=== PATIENT | female | born 1955 | race Caucasian/White ===

== ENCOUNTER 2018-01-08 08:30 | Outpatient (RCR) | payer OTHER, SELFPAY ==
--- NOTE | 2017-12-11 10:00 | HP.PTEVAL_ITS ---
Patient's Visit Information SANDRITA CHING is a 62 year old F referred to Physical Therapy by MD MYRON Souza with a diagnosis of LUMBAGO, SCIATICA AND LOSS OF MUSCLE IN POSTERIOR/LATERAL DISTAL RIGHT LEG. Date of Evaluation: 12/11/17 Physical Therapist: Brittany Tjeeda - Subjective Subjective: Work/Leisure: RETIRED. Disability: NO. Present symptoms: LOW BACK, MARIA LUZ HIPS (RIGHT > LEFT), MARIA LUZ ANTERIOR THIGHS, RIGHT LATERAL LEG PAIN. Present since: A COUPLE OF WEEKS. Pain Scale: WORST: 9/10, LEAST: 4 OR 5/ 10. Currently: 8/10. Commenced as a result of: WORKING IN THE YARD WHEN IT WAS NICE OUT. Symptoms at onset: LOW BACK. Worse: BENDING, SITTING, LIFTING. RIGHT LATERAL CALF PAIN IS ONLY PROVOKED WITH WARMING UP ON THE EXERCISE BIKE AT THE GYM AND USING THE ROWING MACHINE. Better: STANDING, WALKING. Disturbed sleep: YES (STOMACH SLEEPER). Previous history/Previous treatment: INFREQUENT EPISODIC LBP TREATED WITH PT. NO MELANIE'S. NO CHIRO. NO SURGERY. Coughing/ sneezing/straining: POSITIVE. Gait: INDEP GAIT WITHOUT AD - NORMAL. Difficulty initiating urinatin: NO. Accidents: NO. Unexplained weight loss: NO. Imaging: LUMBAR X-RAY - WILL BRING NEXT VISIT. PMH: KNEE SURGERY - Objective Sitting Posture: POOR. Standing Posture: FAIR. Lordosis: MILDLY REDUCED. Lateral shift: NO. Relevant shift: N/A. Active Correction of posture: NE. Other Observations: INDEP TRANSFERS SIT TO STAND WITHOUT UE ASSIST. Motor deficit: MARIA LUZ LE'S 5/5 WITH MMT EXCEPT HIPS 4/5. Sensory deficit: MARIA LUZ LE LIGHT TOUCH SENSATION INTACT. ROM deficit: TIGHT MARIA LUZ LE GASTROC SOLEUS COMPLEX 'S. Reflexes: 2/2 MARIA LUZ LE'S. Dural Signs: POSITIVE RIGHT LE. Lumbar mvmt loss: flex - MOD. ext - MOD. R SG - MOD. L SG - MOD. Core strength: POOR. Palpation: TENDERNESS [id number] REGIONS. INCREASED MUSCLE TONE OF PARASPINALS THROUGHOUT - Goals Goal 1:: DECREASE C/O - Rehabilitation Potential Rehabilitation Potential: Good - Anticipated Interventions Thank you for the opportunity to evaluate your patient. For Medicare and Medicare HMO plans, please review the plan of care and approve it. It will need to be FAXED BACK to us at [phone] for Medicare purposes. Please let me know if there are questions or concerns regarding this plan of care. Physician Signature: Date:
--- NOTE | 2017-12-11 10:44 | HP.PTEVAL_ITS ---
Patient's Visit Information SANDRITA CHING is a 62 year old F referred to Physical Therapy by MD MYRON Souza with a diagnosis of LUMBAGO, SCIATICA AND LOSS OF MUSCLE IN POSTERIOR/LATERAL DISTAL RIGHT LEG. Date of Evaluation: 12/11/17 Physical Therapist: Brittany Tejeda - Visit Plan Frequency: 2x /Week Duration: 2 Months Plan: POSTURE CORRECTION/STRENGTHENING, INSTRUCTION IN APPROPRIATE BODY MECHANICS AND ACTIVITY MODIFICATIONS. DLS STARTING WITH A NEUTRAL SPINE PROGRESSING ROM TOLERATED. MARIA LUZ LE ROM, STRETCHING AND STRENGTHENING. HEP INSTRUCTION. - Subjective Subjective: Work/Leisure: RETIRED. Disability: NO. Present symptoms: LOW BACK, MARIA LUZ HIPS (RIGHT > LEFT), MARIA LUZ ANTERIOR THIGHS, RIGHT LATERAL LEG PAIN. Present since: A COUPLE OF WEEKS. Pain Scale: WORST: 9/10, LEAST: 4 OR 5/ 10. Currently: 8/10. Commenced as a result of: WORKING IN THE YARD WHEN IT WAS NICE OUT. Symptoms at onset: LOW BACK. Worse: BENDING, SITTING, LIFTING. RIGHT LATERAL CALF PAIN IS ONLY PROVOKED WITH WARMING UP ON THE EXERCISE BIKE AT THE GYM AND USING THE ROWING MACHINE. Better: STANDING, WALKING. Disturbed sleep: YES (STOMACH SLEEPER). Previous history/Previous treatment: INFREQUENT EPISODIC LBP TREATED WITH PT. NO MELANIE'S. NO CHIRO. NO SURGERY. Coughing/ sneezing/straining: POSITIVE. Gait: INDEP GAIT WITHOUT AD - NORMAL. Difficulty initiating urinatin: NO. Accidents: NO. Unexplained weight loss: NO. Imaging: LUMBAR X-RAY - WILL BRING NEXT VISIT. PMH: KNEE SURGERY - Objective Sitting Posture: POOR. Standing Posture: FAIR. Lordosis: MILDLY REDUCED. Lateral shift: NO. Relevant shift: N/A. Active Correction of posture: NE. Other Observations: INDEP TRANSFERS SIT TO STAND WITHOUT UE ASSIST. Motor deficit: MARIA LUZ LE'S 5/5 WITH MMT EXCEPT HIPS 4/5. Sensory deficit: MARIA LUZ LE LIGHT TOUCH SENSATION INTACT. ROM deficit: TIGHT MARIA LUZ LE GASTROC SOLEUS COMPLEX 'S. Reflexes: 2/2 MARIA LUZ LE'S. Dural Signs: POSITIVE RIGHT LE. Lumbar mvmt loss: flex - MOD. ext - MOD. R SG - MOD. L SG - MOD. Core strength: POOR. Palpation: TENDERNESS L345S1 REGIONS. INCREASED MUSCLE TONE OF PARASPINALS THROUGHOUT - Goals Goal 1:: DECREASE C/O - Rehabilitation Potential Rehabilitation Potential: Good - Anticipated Interventions Patient/Client Instruction: Educate patient on: Condition, Plan of Care, Risk Factors, Benefits of Fitness Program For the Purpose of:: To improve self management Therapeutic Exercise to Include: Strength training, Body mechanics, Postural training, Flexibilty training, Dynamic Lumbar Stabilization For the Purpose of:: To improve ability of physical actions for home/community/ work/leisure Ultrasound (thermal/non thermal): Yes For the Purpose of:: To decrease pain, To decrease swelling/inflammation, To increase ROM Thank you for the opportunity to evaluate your patient. For Medicare and Medicare HMO plans, please review the plan of care and approve it. It will need to be FAXED BACK to us at [phone] for Medicare purposes. Please let me know if there are questions or concerns regarding this plan of care. Physician Signature: Date:
--- NOTE | 2018-01-08 09:26 | HP.PTDCSUM ---
HP - PT D/C Summary It has been my pleasure to treat SANDRITA CHING under orders from Fili Holley MD, for the diagnosis of LUMBAGO, SCIATICA AND LOSS OF MUSCLE IN POSTERIOR/LATERAL DISTAL RIGHT LEG for a total of 10 visit(s). Discharge Date: 01/08/18 Please see the following information for a summary of their discharge status. - Subjective Subjective: PATIENT REPORTS SHE WENT TO [employer] AND WORKED OUT WITHOUT DIFFICULTY BUT HAS SOME QUESTIONS. STATES HER BACK IS GOOD AND SHE IS BEING CAREFUL WITH HER WRISTS, HANDS AND KNEES. - Pain LOW BACK Pain Intensity (Out of 10): 0 - Overall Improvement % Improvement: 100 - Objective Objective/Function: ALL GOALS MET. LUMBAR MVMT LOSS: FLEX - VERY MIN, EXT - MIN, MARIA LUZ SB - MIN. PATIENT DENIES PAIN WITH LUMBAR ROM TESTING. MARIA LUZ LE STRENGTH 5/5. CORE STRENGTH - FAIR. MILD HAMSTRING AND GASTROC SOLEUS TIGHTNESS. DEMONSTRATES LIFTING IN CLINIC TODAY WITH GOOD BODY MECHANICS AND NO C/O PAIN. INDEP WITH HEP AND GYM EX'S. PATIENT DEMONSTRATES AND COMMUNICATES A VERY GOOD UNDERSTANDING OF PROPER POSTURE CONTROL AND BODY MECHANINICS NOW. - Goals Goal 1:: DECREASE C/O LOW BACK AND MARIA LUZ LE SX'S. Goal Progress: Goal Met Goal 2:: IMPROVE BENDING, SITTING, LIFTING, USE OF THE EXERCISE BIKE AT THE GYM AND USE OF THE ROWING MACHINE AT HOME. Goal Progress: Goal Met Goal 3:: INSTRUCT IN PROPHYLAXIS Goal Progress: Goal Met - Plan Plan: D/C. PATIENT IS AGREEABLE. - D/C Information If there are questions or concerns regarding this patient's physical therapy, please feel free to call me at [phone]. Thank you for the referral of this patient. Sincerely, Brittany Tejeda
== END 2018-01-08 19:00 | disposition home or self-care (01) ==
LOC: PT 08:30
PROVIDERS: Family Provider Internal Medicine; PCP Internal Medicine; Visit Provider Psychiatry & Neurology Neurology
DX: M54.40 Lumbago with sciatica, unspecified side (principal)
CPT/HCPCS: 97035; 97110; 97140; 97161; 97530

== ENCOUNTER → 2019-10-15 11:36 | Outpatient (CLI) | payer MEDICARE, SELFPAY ==
[2018-08-10 09:39] VITALS: BMI 25.5
[2019-10-15 14:15] LABS: Hematocrit 43.6 % (37-47); Hemoglobin 13.8 g/dL (12.0-15.0); Mean Corp Hgb Conc 31.7 g/dL (32-36); Mean Corpuscular Hgb 29.4 pg (27.0-32.0); Mean Corpuscular Volume 92.8 fL (81-99); Mean Platelet Vol. 11.7 fl (6.2-12.0); Platelet Count 264 K/mm3 (150-450); RBC Distribution Width CV 13.1 % (11.6-14.6); RBC Distribution Width SD 44.5 fl (35.1-43.9); White Blood Count 5.9 K/mm3 (4.4-11.0)
[2019-10-15 14:36] LABS: Vitamin B12 303 pg/mL (211-911)
[2019-10-15 14:50] LABS: ALB/GLOB Ratio 1.1 RATIO (0.9-2.4); AST(SGOT) 14 U/L (15-37); Alanine Aminotransfer ALT/SGPT 24 U/L (13-56); Albumin, Serum 3.9 g/dL (3.2-5.0); Alkaline Phosphatase 78 U/L (45-117); Anion Gap 2 (5-15); BUN 14 mg/dL (7-18); BUN/Creat Ratio 19.6 RATIO (10-20); Calcium,Total 9.8 mg/dL (8.5-10.1); Chloride 109 mmol/L (98-107); Cholesterol 254 mg/dL (200); Creatinine, Serum 0.72 mg/dL (0.55-1.02); EST Glomerular Filtration Rate 87 mL/min (>60); Est Glom Filt Rate - Afr Amer 105 mL/min (>60); Globulin 3.4 g/dL (2.2-4.2); Glucose 84 mg/dL (74-106); High Density Lipoprotein 84 mg/dL; Potassium 5.2 mmol/L (3.5-5.1); Protein, Total 7.3 g/dL (6.4-8.2); Sodium Level 140 mmol/L (136-145); T4 Free Direct 0.92 ng/dL (0.76-1.46); Thyroid Stim Hormone (TSH) 1.49 uIU/mL (0.358-3.74); Triglycerides 100 mg/dL; Very Low Density Lipoprotein 20 mg/dL (5-40)
== END ==
PROVIDERS: Family Provider Family Medicine; PCP Family Medicine; Referring Provider Family Medicine; Visit Provider Family Medicine
DX: R53.83 Other fatigue (principal); Z13.220 Encounter for screening for lipoid disorders
CPT/HCPCS: 36415; 80053; 80061; 82306; 82607; 84439; 84443; 85027

== ENCOUNTER → 2019-12-16 13:10 | Outpatient (CLI) | payer MEDICARE, BC, SELFPAY ==
--- NOTE | 2019-12-16 13:21 | VDLE_ITS ---
Reason For Study: Lt leg pain RIGHT LEFT CFV is compressible, spontaneous, phasic, GSV is normal. competent and demonstrates normal CFV is compressible, spontaneous, phasic, augmentation. competent, and demonstrates normal Procedure augmentation. Exam performed in department. FV is compressible, spontaneous, phasic, A preliminary report was called and/or faxed competent and demonstrates normal to Kasey. augmentation. POP V is compressible, spontaneous, phasic, competent and demonstrates normal augmentation. T/P Trunk is compressible. PTV is compressible. LT PerV is compressible. Interpretation Summary Deep veins of the left lower extremity are patent and compressible segmentally. There is no evidence of left lower extremity deep vein thrombosis. Valvular competence appears intact within the proximal deep venous system on the left . The left great saphenous vein appears patent and compressible segmentally. Ordering Physician: Ady Parks Referring Physician: Marcin Khan MD Performed By: Gail Negro RVT
== END ==
PROVIDERS: PCP Family Medicine; Referring Provider Family Medicine; Visit Provider Family Medicine
DX: M79.605 Pain in left leg (principal)
CPT/HCPCS: 93971

== ENCOUNTER → 2020-04-06 10:05 | Outpatient (CLI) | payer MEDICARE, BC, SELFPAY ==
--- NOTE | 2020-04-06 10:13 | BD_ITS ---
STUDY: DUAL ENERGY X-RAY ABSORPTIOMETRY / DXA REASON FOR EXAM: Female, 64 years old. 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 COMPARISON: Comparison is made with prior study dated June 22, 2015. FINDINGS: Lumbar Spine (L1-L4): g/cm2 (0.845) / T-score (-2.8) / Z-score (-1.2) Findings are suggestive of osteoporosis with a high fracture risk. Left Femur Total: g/cm2 (0.880) / T-score (-1.0) / Z-score (0.2) Left Femoral Neck: g/cm2 (0.915) / T-score (-0.9) / Z-score (0.6) Right Femur Total: g/cm2 (0.936) / T-score (-0.6) / Z-score (0.7) Right Femoral Neck: g/cm2 (0.905) / T-score (-1.0) / Z-score (0.5) The T-Scores on the most recent prior examination were: Lumbar Spine (L1-L4): There has been worsening of bone density since the previous examination. Left Femur Total: which represents a worsening of 7.5%. Right Femur Total: which represents an improvement of 1.7%. BD/Dexa Bone Density Study IMPRESSION: The patient is considered osteoporotic as outlined below according to World Micheal Organization (WHO) criteria with a high fracture risk. There has been worsening of bone density since the previous examination. Reference Information: The T-score is the number of standard deviations above or below the standard which is normal for young adults at their peak bone mineral density. The World Health Organization (WHO) interprets the T-scores as follows: Above -1 Normal bone density Between -1 and -2.5 Osteopenia Equal to / or below -2.5 Osteoporosis As a practical clinical guideline, osteopenia may be graded as follows: Mild -1 through -1.5 Moderate -1.6 through -2.0 Severe -2.1 through -2.4 The Z-score is the number of standard deviations above or below age-matched controls. A Z-score of less than -1.5 would be considered abnormal. References: 1. NIH Osteoporosis and Related Bone Diseases http://www.osteo.org 2. International Society for Clinical Densitometry http://www.iscd.org 3. National Osteoporosis Foundation http://www.nof.org Electronically Signed: Kip Freed, at 12:50 EDT , Service support ,
== END ==
PROVIDERS: PCP Family Medicine; Referring Provider Family Medicine; Visit Provider Family Medicine
DX: M85.89 Other specified disorders of bone density and structure, multiple sites (principal); Z82.49 Family history of ischemic heart disease and other diseases of the circulatory system
CPT/HCPCS: 77080

== ENCOUNTER → 2020-04-13 10:41 | Outpatient (CLI) | payer MEDICARE, BC, SELFPAY ==
[2018-08-10 09:39] VITALS: BMI 25.5
[2020-04-13 13:54] LABS: Anion Gap 4 (5-15); BUN 19 mg/dL (7-18); BUN/Creat Ratio 26.6 RATIO (10-20); Calcium,Total 9.9 mg/dL (8.5-10.1); Chloride 106 mmol/L (98-107); Creatinine, Serum 0.72 mg/dL (0.55-1.02); EST Glomerular Filtration Rate 87 mL/min (>60); Est Glom Filt Rate - Afr Amer 105 mL/min (>60); Glucose 84 mg/dL (74-106); Magnesium 2.7 mg/dL (1.6-2.6); Potassium 4.8 mmol/L (3.5-5.1); Sodium Level 139 mmol/L (136-145)
[2020-04-13 13:57] LABS: Vitamin B12 647 pg/mL (211-911); Vitamin D,25 Hydroxy 49.5 ng/mL
== END ==
PROVIDERS: PCP Family Medicine; Referring Provider Family Medicine; Visit Provider Family Medicine
DX: M81.0 Age-related osteoporosis without current pathological fracture (principal); E53.8 Deficiency of other specified B group vitamins; E55.9 Vitamin D deficiency, unspecified
CPT/HCPCS: 36415; 80048; 82306; 82607; 83735; 83970; 84100

== ENCOUNTER → 2020-11-23 16:10 | Outpatient (CLI) | payer MEDICARE, BC, SELFPAY ==
[2018-08-10 09:39] VITALS: BMI 25.5
== END ==
PROVIDERS: PCP Family Medicine; Referring Provider Otolaryngology; Visit Provider Otolaryngology
DX: J32.9 Chronic sinusitis, unspecified (principal)
CPT/HCPCS: 87070; 87205

== ENCOUNTER → 2021-03-02 13:23 | Outpatient (CLI) | payer MEDICARE, BC, SELFPAY ==
--- NOTE | 2021-03-02 13:27 | CT_ITS ---
STUDY: CARDIAC CALCIUM SCORING - CT CHEST REASON FOR EXAM: Female, 65 years old. HLD/FAMILY HX RADIATION DOSAGE (If Supplied By Facility): CTDIvol = ( 12.19 ) mGy, DLP = ( 170.66 ) mGycm TECHNIQUE: Axial non-enhanced images were acquired through the heart for the sole purpose of measuring coronary artery calcium. Individualized dose optimization techniques were used for this CT. COMPARISON: None. FINDINGS: There are scattered punctate, less than 2 mm, low risk/benign pulmonary granulomata not requiring further follow-up. Mediastinal contents are normal. CT/Limited Chest CT w/CCTA IMPRESSION: Unremarkable extra cardiac portion of CT chest/heart. Please go to: [email or web address] , for a description of the calculator. Electronically Signed: Stephen Botello MD at 17:54 EDT Tel , Service support ,
[2021-03-02 13:33] VITALS: BP 129/61; PULSE 70; RESP 16; O2SAT 96; BMI 25.5
--- NOTE | 2021-03-05 10:36 | CA.SCORE ---
Calcium Scoring Coronary Calcium Scoring: High-resolution Computed Tomographic imaging of the chest was performed on [03/02/2021], with particular attention paid to the coronary arteries. Images from the examination were analyzed for the presence and extent of coronary artery calcification , using coronary calcium quantification software. The patient tolerated the procedure well and there were no complications. The results of the coronary calcification analysis are provided below. Left main coronary artery 0 Left anterior descending artery 0 Left circumflex artery 0 Right coronary artery 0 Total Agatston score 0. Percentile rankings 0 The above is suggestive of no identifiable atherosclerotic plaquing. All other risk factors should be taken into consideration while interpreting this finding. Calcium Scoring Interpretation: 0 No identifiable atherosclerotic plaque. Very low cardiovascular disease risk. <5% chance of presence coronary artery disease A Negative Examination 1-10 Minimal Plaque burden. Significant coronary artery disease very unlikely. 11-100 Mild plaque burden. Likely mild or minimal coronary atherosclerosis. 101-400 Moderate plaque burden Moderate non-obstructive coronary artery disease highly likely. Over 400 Extensive plaque burden. High likelihood of at least one significant coronary stenosis (>50% diameter)
== END ==
PROVIDERS: PCP Family Medicine; Referring Provider Family Medicine; Visit Provider Family Medicine
DX: E78.5 Hyperlipidemia, unspecified (principal)
CPT/HCPCS: 75571; 76380

== ENCOUNTER → 2021-04-10 15:49 | Outpatient (CLI) | payer MEDICARE, BC, SELFPAY ==
[2021-03-02 13:33] VITALS: BMI 25.5
--- NOTE | 2021-04-10 15:54 | RAD_ITS ---
STUDY: X-RAY - CERVICAL SPINE REASON FOR EXAM: Female, 65 years old. Cervicalgia TECHNIQUE: 8 view(s) of the cervical spine were obtained including oblique views and flexion and extension views.. COMPARISON: None FINDINGS: There are degenerative changes of the anterior atlantoaxial articulation. Normal odontoid process. There is straightening of the normal cervical lordosis. There is multi-level endplate spondylosis. There is multi-level degenerative disc disease with multilevel disc space narrowing. Moderate narrowing of the left C4-C5 neural foraminal The soft tissue structures are unremarkable. RAD/Cerv Spine Obl/Flex/Ext Comp IMPRESSION: Multilevel degenerative changes with narrowing of the left C4-C5 neural foramen Electronically Signed: Kip Freed MD at 13:36 EDT , Service support ,
== END ==
PROVIDERS: PCP Family Medicine; Referring Provider Family Medicine; Visit Provider Family Medicine
DX: M54.2 Cervicalgia (principal)
CPT/HCPCS: 72052

== ENCOUNTER → 2021-04-20 11:23 | Outpatient (CLI) | payer MEDICARE, BC, SELFPAY ==
[2021-03-02 13:33] VITALS: BMI 25.5
[2021-04-23 14:08] LABS: Endomysial Antibody IgA Negative (Negative)
[2021-04-24 09:47] LABS: Immunoglobulin A 221 mg/dL (87-352); t-Transglutaminase IgA <2 U/mL (0-3)
== END ==
PROVIDERS: PCP Family Medicine; Referring Provider Dermatology; Visit Provider Dermatology
DX: L30.9 Dermatitis, unspecified (principal)
CPT/HCPCS: 36415; 82784; 83516; 86255

== ENCOUNTER 2021-04-30 18:03 | Emergency (ER) | payer MEDICARE, BC, SELFPAY ==
[2021-03-02 13:33] VITALS: BMI 25.5
[2021-04-30 18:04] VITALS: BP 155/81; PULSE 75; RESP 16; TEMP 36.4; O2SAT 99; BMI 25.7
--- NOTE | 2021-04-30 18:15 | RAD_ITS ---
STUDY: X-RAY - UNILATERAL RIBS ( LEFT ) WITH CHEST REASON FOR EXAM: Female, 66 years old. FALL TECHNIQUE - RIBS: 4 view(s) of the ribs. TECHNIQUE - CHEST: 1 COMPARISON: None. FINDINGS - RIBS: Normal visualized ribs without a demonstrated fracture. FINDINGS - CHEST: The lungs are clear and expanded. There is no demonstrated pleural abnormality. Normal size heart. Normal mediastinum and courtney. Normal visualized pulmonary arteries. Normal visualized aortic arch and descending thoracic aorta. Normal visualized thoracic spine. Widening of the left acromioclavicular joint most consistent with prior resection of the distal clavicle. There is no demonstrated abnormality of the visualized soft tissue structures of the upper abdomen. RAD/Ribs Uni Min 3V w/PA Chest IMPRESSION: RIBS: Normal x-ray examination of the ribs. CHEST: No acute findings. Electronically Signed: Bridgett Monroe MD at 18:50 EDT Tel , Service support ,
--- NOTE | 2021-04-30 20:11 | ED.VIS.CHEST ---
HPI History of Present Illness Chief Complaint: Chest Other Informant: patient and spouse/S.O. Narrative Narrative: 66-year-old female states she was walking the dog when she sustained a fall. She states her left anterior mid ribs and the left cheek took the brunt of the fall. She notes pain with movement and deep breathing just underneath the left breast anteriorly and midaxillary. She notes some mild swelling to the left cheek. No loss of conscious. No malocclusion no double vision. No dental injury. [facility] Medical History (Updated 04/30/21 @ 20:[address] Junaid Lara DO) Asthma GERD (gastroesophageal reflux disease) Mixed hyperlipidemia Near syncope Home Medications montelukast 10 mg PO DAILY 03/23/14 [History Last Taken Unknown] fluticasone propionate 50 mcg/actuation nasal spray,suspension 50 mcg INTRANASAL BID 09/23/17 [History Last Taken Unknown] albuterol sulfate 90 mcg/actuation aerosol inhaler 1 - 2 puff INHALATION .COMPLEX 12/02/17 [History Last Taken Unknown] ciclesonide 80 mcg/actuation aerosol inhaler 1 inh INHALATION .q other day g 12/02/17 [History Last Taken Unknown] esomeprazole magnesium 20 mg capsule,delayed release See Rx Instructions PO QDAY cap 12/02/17 [History Last Taken Unknown] terbinafine HCl 25 mg PO DAILY 04/30/21 [History Last Taken Unknown] Allergy/AdvReac Type Severity Reaction Status Date / Time ciprofloxacin [From Cipro] Allergy rash Verified 04/30/21 18:06 Penicillins Allergy hives Verified 04/30/21 18:06 Tetracyclines Allergy Rash Verified 04/30/21 18:06 iodine AdvReac Severe Unknown Verified 04/30/21 18:06 copazine Allergy unknown Uncoded 04/30/21 18:06 betadine scrub AdvReac red rash Uncoded 04/30/21 18:06 Family History Mother Diabetes Heart disease atrial fib Brother Diabetes CAD (coronary artery disease) 2 brother with RI w/ stents and CABG Father CAD (coronary artery disease) RI and CABG Aunt CAD (coronary artery disease) CABG Surgical History History of arthroscopy of left knee (~11/2011) History of carpal tunnel surgery of right wrist (~2009) History of shoulder surgery (~2009) right thumb surgery Social History Smoking Status: Never smoker alcohol intake: current alcohol intake frequency: a few times a week caffeine: Yes (3 daily) ROS ROS ED Constitutional Constitutional ED: Denies chills or weight loss Eyes Eyes: Denies change in vision or diplopia ENT ENT ED: Denies ear pain, rhinorrhea or sore throat Cardiovascular Cardiovascular: Reports chest pain; Denies orthopnea, palpitations or racing heartbeat Respiratory/Chest Respiratory/Chest: Denies cough, dyspnea or orthopnea Gastrointestinal Gastrointestinal: Denies abdominal pain, diarrhea, nausea or vomiting Genitourinary Genitourinary ED: Denies dysuria, hematuria or urinary frequency Musculoskeletal Musculoskeletal: Denies arthralgias or myalgias Integumentary Denies abscess or rash Neurologic Neurologic: Denies headache(s) or weakness Psychiatric Psychiatric: Denies anxiety, depression, suicidal ideation or suicidal thoughts Endocrine Endocrinology: Denies polydipsia, polyphagia or polyuria Allergic/Immunologic Allergic/Immunologic ED: Denies mouth swelling, tongue swelling or urticaria EXAM Physical Exam Const Vital Signs: 04/30/21 18:04 04/30/21 19:27 Temperature 97.6 F L Temperature Source Temporal Pulse Rate 75 Respiratory Rate 16 Respiratory Effort Normal Non-Labored Respiratory Depth Normal Respiratory Pattern Normal Blood Pressure 155/81 H Blood Pressure Mean 105 Pulse Ox 99 Oxygen Delivery Method Room Air Room Air Positive well nourished and well developed General Appearance ED: well developed HEENT Reports normocephalic, head/scalp atraumatic and moist mucous membranes HEENT Narrative: Patient has mild swelling and slight erythema to the left cheek. Minimal tenderness to palpation. No obvious deformity. No malocclusion. No periorbital tenderness. Eyes PERRL and EOMs intact bilaterally Neck no lymphadenopathy, supple and no JVD Chest Wall Chest Narrative: Patient has pain with movement of the left mid ribs. No significant pain upon palpation however Resp normal respiratory effort and clear to auscultation bilaterally Cardio regular rate, regular rhythm and no murmurs GI normal to inspection, nondistended, normoactive bowel sounds and non-tender Palpation: soft Back/Spine no CVA tenderness and normal ROM Extremity normal to inspection General Extremety ED: Negative for edema General Extremity: Negative for edema Neuro oriented x3 and CN's II-XII intact bilaterally Sensorium / Orientation: alert Motor Exam: strength 5/5 throughout Psych mental status grossly normal Mood & Affect: Negative for depressed or tearful Skin no rashes or lesions noted and no wounds MDM MDM MDM Narrative Medical decision making narrative: My interpretation of the plain films of the left rib series is no acute fracture. No obvious pneumothorax or hemothorax. Patient requested Tylenol. Would recommend supportive care at home return if worsening or concerns Radiography Diagnostic Testing: Radiology Impression Ribs w/Chest X-Ray 04/30/21 18:15 IMPRESSION: RIBS: Normal x-ray examination of the ribs. CHEST: No acute findings. Electronically Signed: Bridgett Monroe MD at 18:50 EDT Tel , Service support , Discharge Plan Triage Chief Complaint: Chest Other ED Provider: Junaid Lara Dx/Rx/DC Orders Clinical Impression: Chest wall contusion Instructions: ED Chest Wall Contusion Prescriptions: No Action fluticasone propionate [Flonase Allergy Relief] 50 mcg/actuation spray,suspension 50 mcg INTRANASAL BID RF: 0 ciclesonide [Alvesco] 80 mcg/actuation HFA aerosol inhaler 1 inh INHALATION .q other day RF: 0 esomeprazole magnesium [Nexium] 20 mg capsule,delayed release(DR/EC) See Rx Instructions PO QDAY RF: 0 montelukast 10 MG tablet 10 mg PO DAILY RF: 0 albuterol sulfate 1 INHALER inhaler 1 - 2 puff INHALATION .COMPLEX RF: 0 terbinafine HCl 250 mg tablet 25 mg PO DAILY RF: 0 Primary Care Provider: Manuel Khan Referrals: Manuel Khan MD [Primary Care Provider] - 10-14 Days if not better Activity Restrictions/Additional Instructions: Using a throat pillow to help stabilize your left chest will improve your pain with movement. One of the complications of bruised and injured ribs is pneumonia. I would recommend that you take a deep breath at least 2-3 times per hour while awake. Disposition Disposition: Home, Self Care
[2021-04-30] MEDS: Acetaminophen 500 MG Tablet 1000 MG PO (20:13)
== END 2021-04-30 20:31 | disposition home or self-care (01) ==
LOC: ED 20:23
PROVIDERS: Emergency Provider Emergency Medicine; PCP Family Medicine
DX: S20.219A Contusion of unspecified front wall of thorax, initial encounter (principal); W19.XXXA Unspecified fall, initial encounter; Y93.K1 Activity, walking an animal; Y92.9 Unspecified place or not applicable; Y99.9 Unspecified external cause status; J45.909 Unspecified asthma, uncomplicated; K21.9 Gastro-esophageal reflux disease without esophagitis; E78.2 Mixed hyperlipidemia; Z79.899 Other long term (current) drug therapy; Z79.51 Long term (current) use of inhaled steroids
CPT/HCPCS: 71101; 99283

== ENCOUNTER → 2021-05-04 07:23 | Outpatient (CLI) | payer MEDICARE, BC, SELFPAY ==
[2021-04-30 18:04] VITALS: BMI 25.7
[2021-05-04 10:31] LABS: Vitamin D,25 Hydroxy 39.2 ng/mL
[2021-05-04 10:33] LABS: Anion Gap 4 (5-15); BUN 18 mg/dL (7-18); BUN/Creat Ratio 29.3 RATIO (10-20); Calcium,Total 9.5 mg/dL (8.5-10.1); Chloride 106 mmol/L (98-107); Cholesterol 279 mg/dL (200); Creatinine, Serum 0.61 mg/dL (0.55-1.02); EST Glomerular Filtration Rate 103 mL/min (>60); Est Glom Filt Rate - Afr Amer 125 mL/min (>60); Glucose 83 mg/dL (74-106); High Density Lipoprotein 91 mg/dL; Potassium 4.7 mmol/L (3.5-5.1); Sodium Level 138 mmol/L (136-145); Thyroid Stim Hormone (TSH) 4.78 uIU/mL (0.358-3.74); Triglycerides 117 mg/dL; Very Low Density Lipoprotein 23 mg/dL (5-40)
== END ==
PROVIDERS: PCP Family Medicine; Referring Provider Family Medicine; Visit Provider Family Medicine
DX: M81.0 Age-related osteoporosis without current pathological fracture (principal); E78.5 Hyperlipidemia, unspecified
CPT/HCPCS: 36415; 80048; 80061; 82306; 83970; 84443

== ENCOUNTER → 2021-05-05 08:33 | Outpatient (CLI) | payer MEDICARE, BC, SELFPAY ==
[2021-04-30 18:04] VITALS: BMI 25.7
[2021-05-10 03:07] LABS: Almond <0.10 kU/L (Class 0); Banana <0.10 kU/L (Class 0); Barley, Whole Grain <0.10 kU/L (Class 0); Beef <0.10 kU/L (Class 0); Carrot <0.10 kU/L (Class 0); Chicken <0.10 kU/L (Class 0); Egg, Yolk <0.10 kU/L (Class 0); Garlic <0.10 kU/L (Class 0); Lobster <0.10 kU/L (Class 0); Oat <0.10 kU/L (Class 0); Pork 0.32 kU/L (Class I); Potato, White <0.10 kU/L (Class 0); Rice <0.10 kU/L (Class 0); Salmon <0.10 kU/L (Class 0); Strawberry <0.10 kU/L (Class 0); Tomato <0.10 kU/L (Class 0); Tuna <0.10 kU/L (Class 0); Yeast <0.10 kU/L (Class 0)
[2021-05-10 07:36] LABS: Cashew <0.10 kU/L (Class 0); Turkey <0.10 kU/L (Class 0)
== END ==
PROVIDERS: PCP Family Medicine; Referring Provider Otolaryngology; Visit Provider Otolaryngology
DX: T78.40XA Allergy, unspecified, initial encounter (principal)
CPT/HCPCS: 36415; 86003

== ENCOUNTER → 2021-07-13 11:21 | Outpatient (CLI) | payer MEDICARE, BC, SELFPAY ==
[2021-07-13 13:53] LABS: T4 Free Direct 0.92 ng/dL (0.76-1.46); Thyroid Stim Hormone (TSH) 1.38 uIU/mL (0.358-3.74)
== END ==
PROVIDERS: PCP Family Medicine; Referring Provider Family Medicine; Visit Provider Family Medicine
DX: E03.9 Hypothyroidism, unspecified (principal)
CPT/HCPCS: 36415; 84439; 84443

== ENCOUNTER → 2022-01-22 | Outpatient (CLI) | payer MEDICARE, BC, SELFPAY ==
[2022-01-22 09:56] LABS: Hematocrit 47.1 % (37-47); Hemoglobin 15.2 g/dL (12.0-15.0); Mean Corp Hgb Conc 32.3 g/dL (32-36); Mean Corpuscular Hgb 28.8 pg (27.0-32.0); Mean Corpuscular Volume 89.4 fL (81-99); Mean Platelet Vol. 10.7 fl (6.2-12.0); Platelet Count 308 K/mm3 (150-450); RBC Distribution Width CV 13.3 % (11.6-14.6); Red Blood Count 5.27 M/mm3 (4.2-5.4); White Blood Count 5.8 K/mm3 (4.4-11.0)
[2022-01-22 10:07] LABS: PTHIN 37.7 pg/mL (18.4-80.1)
[2022-01-22 10:11] LABS: Vitamin B12 642 pg/mL (211-911); Vitamin D,25 Hydroxy 53.3 ng/mL
[2022-01-22 10:14] LABS: AST(SGOT) 27 U/L (15-37); Alanine Aminotransfer ALT/SGPT 44 U/L (13-56); Alkaline Phosphatase 109 U/L (45-117); Anion Gap 7 (5-15); BUN 18 mg/dL (7-18); BUN/Creat Ratio 25.7 RATIO (10-20); Calcium,Total 9.4 mg/dL (8.5-10.1); Chloride 102 mmol/L (98-107); Cholesterol 325 mg/dL (200); EST Glomerular Filtration Rate 89 mL/min (>60); Est Glom Filt Rate - Afr Amer 107 mL/min (>60); Globulin 4.2 g/dL (2.2-4.2); Glucose 95 mg/dL (74-106); High Density Lipoprotein 93 mg/dL; Potassium 4.2 mmol/L (3.5-5.1); Protein, Total 8.2 g/dL (6.4-8.2); Sodium Level 137 mmol/L (136-145); Triglycerides 117 mg/dL; Very Low Density Lipoprotein 23 mg/dL (5-40)
== END | disposition home or self-care (01) ==
LOC: MTLAB 08:02
PROVIDERS: PCP Family Medicine; Referring Provider Family Medicine; Visit Provider Family Medicine
DX: E53.8 Deficiency of other specified B group vitamins (principal); M81.0 Age-related osteoporosis without current pathological fracture; E03.9 Hypothyroidism, unspecified; E78.2 Mixed hyperlipidemia
CPT/HCPCS: 36415; 80053; 80061; 82306; 82330; 82607; 83970; 84443; 85027

== ENCOUNTER → 2022-03-29 | Outpatient (CLI) | payer MEDICARE, BC, SELFPAY ==
[2022-03-29 10:13] LABS: AST(SGOT) 29 U/L (15-37); Alanine Aminotransfer ALT/SGPT 40 U/L (13-56); Albumin, Serum 3.6 g/dL (3.2-5.0); Alkaline Phosphatase 105 U/L (45-117); Bilirubin, Direct 0.13 mg/dL (0.00-0.30); Cholesterol 256 mg/dL (200); Globulin 3.8 g/dL (2.2-4.2); High Density Lipoprotein 80 mg/dL; Protein, Total 7.4 g/dL (6.4-8.2); Triglycerides 104 mg/dL; Very Low Density Lipoprotein 21 mg/dL (5-40)
[2022-04-01 16:12] LABS: T4 Free Direct 1.04 ng/dL (0.76-1.46); Thyroid Stim Hormone (TSH) 1.18 uIU/mL (0.358-3.74)
== END | disposition home or self-care (01) ==
LOC: MTLAB 07:54
PROVIDERS: PCP Family Medicine; Referring Provider Family Medicine; Visit Provider Family Medicine
DX: E78.5 Hyperlipidemia, unspecified (principal); E03.9 Hypothyroidism, unspecified
CPT/HCPCS: 36415; 80061; 80076; 84439; 84443

== ENCOUNTER → 2022-06-18 | Outpatient (CLI) | payer MEDICARE, BC, SELFPAY ==
[2022-06-18 12:48] LABS: T4 Free Direct 0.98 ng/dL (0.76-1.46); Thyroid Stim Hormone (TSH) 1.91 uIU/mL (0.358-3.74)
== END | disposition home or self-care (01) ==
LOC: MTLAB 10:41
PROVIDERS: PCP Family Medicine; Referring Provider Family Medicine; Visit Provider Family Medicine
DX: E03.9 Hypothyroidism, unspecified (principal)
CPT/HCPCS: 84439; 84443

== ENCOUNTER → 2022-09-17 | Outpatient (CLI) | payer MEDICARE, BC, SELFPAY ==
[2022-09-17 18:30] LABS: T4 Free Direct 1.03 ng/dL (0.76-1.46); Thyroid Stim Hormone (TSH) 1.36 uIU/mL (0.358-3.74)
== END | disposition home or self-care (01) ==
LOC: MFPLAB 13:59
PROVIDERS: PCP Family Medicine; Referring Provider Family Medicine; Visit Provider Family Medicine
DX: Z00.00 Encounter for general adult medical examination without abnormal findings (principal); E03.9 Hypothyroidism, unspecified
CPT/HCPCS: 36415; 84439; 84443

== ENCOUNTER → 2022-10-29 | Outpatient (CLI) | payer MEDICARE, BC, SELFPAY ==
--- NOTE | 2022-10-29 10:25 | BD_ITS ---
STUDY: DUAL ENERGY X-RAY ABSORPTIOMETRY / DXA REASON FOR EXAM: Female, 67 years old. M810 TECHNIQUE: Bone Mineral Density (BMD) measurements of lumbar spine and bilateral hips were obtained. COMPARISON: Comparison is made with prior study dated 04/06/2020. FINDINGS: Lumbar Spine (L1-L4): g/cm2 (0.691) / T-score (-3.2) / Z-score (-1.2) Findings are suggestive of osteoporosis with a high fracture risk. Left Femur Total: g/cm2 (0.767) / T-score (-1.4) / Z-score (0.0) Left Femoral Neck: g/cm2 (0.700) / T-score (-1.3) / Z-score (0.4) Right Femur Total: g/cm2 (0.807) / T-score (-1.1) / Z-score (0.3) Right Femoral Neck: g/cm2 (0.698) / T-score (-1.4) / Z-score (0.3) The T-Scores on the most recent prior examination were: Lumbar Spine (L1-L4): There has been worsening of bone density since the previous examination. Left Femur Total: which represents a worsening of 6.3%. Right Femur Total: which represents a worsening of 7.4%. BD/Dexa Bone Density Study IMPRESSION: The patient is considered osteoporotic as outlined below according to World Micheal Organization (WHO) criteria with a high fracture risk. There has been worsening of bone density since the previous examination. Reference Information: The T-score is the number of standard deviations above or below the standard which is normal for young adults at their peak bone mineral density. The World Health Organization (WHO) interprets the T-scores as follows: Above -1 Normal bone density Between -1 and -2.5 Osteopenia Equal to / or below -2.5 Osteoporosis As a practical clinical guideline, osteopenia may be graded as follows: Mild -1 through -1.5 Moderate -1.6 through -2.0 Severe -2.1 through -2.4 The Z-score is the number of standard deviations above or below age-matched controls. A Z-score of less than -1.5 would be considered abnormal. References: 1. NIH Osteoporosis and Related Bone Diseases www osteo.org 2. International Society for Clinical Densitometry www iscd.org 3. National Osteoporosis Foundation www nof.org Electronically Signed: Kip Freed MD at 8:26 EST ,
== END | disposition home or self-care (01) ==
LOC: OPBD 10:16
PROVIDERS: PCP Family Medicine; Visit Provider Family Medicine
DX: M81.0 Age-related osteoporosis without current pathological fracture (principal)
CPT/HCPCS: 77080

== ENCOUNTER → 2023-01-14 | Outpatient (CLI) | payer MEDICARE, BC, SELFPAY ==
[2023-01-14 15:45] LABS: Vitamin D,25 Hydroxy 55.8 ng/mL
[2023-01-14 15:51] LABS: Anion Gap 5 (5-15); BUN 19 mg/dL (7-18); BUN/Creat Ratio 29.4 RATIO (10-20); Calcium,Total 9.6 mg/dL (8.5-10.1); Chloride 107 mmol/L (98-107); Creatinine, Serum 0.65 mg/dL (0.55-1.02); EST Glomerular Filtration Rate 97 mL/min (>60); Est Glom Filt Rate - Afr Amer 117 mL/min (>60); Glucose 88 mg/dL (74-106); Potassium 4.6 mmol/L (3.5-5.1); Sodium Level 137 mmol/L (136-145); T4 Free Direct 0.97 ng/dL (0.76-1.46); Thyroid Stim Hormone (TSH) 1.23 uIU/mL (0.358-3.74)
[2023-01-15 09:54] LABS: PTHIN 42.9 pg/mL (18.4-80.1)
== END | disposition home or self-care (01) ==
LOC: MFPLAB 12:19
PROVIDERS: PCP Family Medicine; Referring Provider Family Medicine; Visit Provider Family Medicine
DX: M81.0 Age-related osteoporosis without current pathological fracture (principal); E03.9 Hypothyroidism, unspecified
CPT/HCPCS: 36415; 80048; 82306; 82330; 83970; 84439; 84443

== ENCOUNTER → 2024-01-14 | Outpatient (CLI) | payer MEDICARE, BC, SELFPAY ==
[2024-01-14 10:31] LABS: Vitamin B12 403 pg/mL (211-911); Vitamin D,25 Hydroxy 54.2 ng/mL
[2024-01-14 10:36] LABS: Anion Gap 5 (5-15); BUN 23 mg/dL (7-18); BUN/Creat Ratio 37.8 RATIO (10-20); Calcium,Total 9.4 mg/dL (8.5-10.1); Chloride 107 mmol/L (98-107); Cholesterol 261 mg/dL (200); Creatinine, Serum 0.61 mg/dL (0.55-1.02); EST Glomerular Filtration Rate 104 mL/min (>60); Est Glom Filt Rate - Afr Amer 125 mL/min (>60); Glucose 97 mg/dL (74-106); High Density Lipoprotein 79 mg/dL; Potassium 4.3 mmol/L (3.5-5.1); Sodium Level 139 mmol/L (136-145); T4 Free Direct 0.98 ng/dL (0.76-1.46); Thyroid Stim Hormone (TSH) 1.47 uIU/mL (0.358-3.74); Triglycerides 89 mg/dL; Very Low Density Lipoprotein 18 mg/dL (5-40)
[2024-01-14 10:37] LABS: PTHIN 57.5 pg/mL (18.4-80.1)
== END | disposition home or self-care (01) ==
PROVIDERS: PCP Family Medicine; Referring Provider Family Medicine; Visit Provider Family Medicine
DX: M81.0 Age-related osteoporosis without current pathological fracture (principal); E03.9 Hypothyroidism, unspecified; E78.5 Hyperlipidemia, unspecified
CPT/HCPCS: 36415; 80048; 80061; 82306; 82607; 83970; 84439; 84443

== ENCOUNTER → 2024-04-26 | Outpatient (CLI) | payer MEDICARE, BC, SELFPAY ==
--- NOTE | 2024-04-26 10:10 | RAD_ITS ---
INDICATION: sinus pain. Chronic EXAMINATION/TECHNIQUE: X-RAY - XR Sinuses Paranasal Min 3 Views COMPARISON: CT dated July 27, 2009 FINDINGS: There is no significant mucosal thickening. There are no air-fluid levels. The regional bones are grossly intact. RAD/Sinuses min 3 Views IMPRESSION: Negative sinus series. Electronically Signed: Nanette Recinos MD at 10:04 EDT ,
== END | disposition home or self-care (01) ==
LOC: MTRAD 10:09
PROVIDERS: PCP Family Medicine; Referring Provider Family Medicine; Visit Provider Family Medicine
DX: J32.9 Chronic sinusitis, unspecified (principal)
CPT/HCPCS: 70220

== ENCOUNTER → 2024-10-08 | Outpatient (CLI) | payer MEDICARE, BC, SELFPAY | END | disposition home or self-care (01) | PROVIDERS: PCP Family Medicine; Referring Provider Otolaryngology; Visit Provider Otolaryngology | DX: J32.9 Chronic sinusitis, unspecified (principal) | CPT/HCPCS: 87070; 87205 ==

== ENCOUNTER → 2024-12-30 | Outpatient (CLI) | payer MEDICARE, BC, SELFPAY ==
[2024-12-30 19:46] LABS: PTHIN 54 pg/mL (11-61)
[2024-12-30 19:51] LABS: ALB/GLOB Ratio 1.6 RATIO (0.9-2.4); AST(SGOT) 19 U/L (<=31); Alanine Aminotransfer ALT/SGPT 17 U/L (<=34); Albumin, Serum 4.2 g/dL (3.4-4.8); Alkaline Phosphatase 49 U/L (35-104); Anion Gap 12 (5-15); BUN 14 mg/dL (4-19); BUN/Creat Ratio 22.5 RATIO (10-20); Calcium,Total 9.4 mg/dL (7.6-11.0); Carbon Dioxide 21.5 mmol/L (21.0-32.0); Chloride 108 mmol/L (98-108); Creatinine, Serum 0.64 mg/dL (0.70-1.20); EST Glomerular Filtration Rate 95 (>60); Globulin 2.6 g/dL (2.2-4.2); Glucose 75 mg/dL (70-99); Potassium 4.5 mmol/L (3.3-5.1); Protein, Total 6.8 g/dL (5.9-8.4); Sodium Level 142 mmol/L (133-145); Total Bilirubin 0.35 mg/dL (0.00-1.30)
[2024-12-30 20:18] LABS: Cholesterol 270 mg/dL (<=200); High Density Lipoprotein 90 mg/dL; Low Density Lipoprotein Calc. 160 mg/dL; Triglycerides 98 mg/dL; Very Low Density Lipoprotein 20 mg/dL (5-40); Vitamin B12 1037 pg/mL (180-914); Vitamin D,25 Hydroxy 52.6 ng/mL (30-100); cholesterol:hdl ratio screen 2.99
== END | disposition home or self-care (01) ==
LOC: MFPLAB 08:09
PROVIDERS: PCP Family Medicine; Referring Provider Family Medicine; Visit Provider Family Medicine
DX: E78.5 Hyperlipidemia, unspecified (principal); M81.0 Age-related osteoporosis without current pathological fracture; E53.8 Deficiency of other specified B group vitamins
CPT/HCPCS: 36415; 80053; 80061; 82306; 82607; 83970; 84443

== ENCOUNTER → 2024-12-30 | Outpatient (CLI) | payer MEDICARE, BC, SELFPAY ==
--- NOTE | 2024-12-30 06:59 | ECHOD_ITS ---
Reason For Study Reason For Study: SYNCOPE & COLLAPSE Procedure This was a 2D Doppler, Color Flow transthoracic echocardiogram. Exam performed in department. Left Ventricle Normal LV size. Left ventricular systolic function is normal. The left ventricular ejection fraction is 65 %. No regional wall motion abnormalities noted. Right Ventricle Normal RV size. Normal systolic function. Atria Normal left atrium. Normal right atrium. Mitral Valve Normal mitral valve. Tricuspid Valve Normal tricuspid valve. Aortic Valve Trisinus/trileaflet aortic valve. Pulmonic Valve Normal pulmonic valve. Great Vessels Normal aortic root. The pulmonary artery is normal size. Inferior vena cava collapse with respiration. Pericardium/Pleural No pericardial effusion. MMode/2D Measurements & Calculations LVIDd: 3.8 cm IVSd: 0.84 cm Ao root diam: 3.0 cm LVIDs: 2.4 cm LVPWd: 0.84 cm RVDd: 2.8 cm FS: 37.0 % LAV(MOD-bp): 51.6 ml LVAd ap4: 20.9 cm2 LVAd ap2: 18.1 cm2 LAV(MOD-bp) Indexed: 29.6 ml/m2 LVLd ap4: 7.0 cm LVLd ap2: 7.1 cm LAV(MOD-sp2): 46.9 ml EDV(MOD-sp4): 50.7 ml EDV(MOD-sp2): 38.6 ml LAV(MOD-sp4): 43.3 ml EDV(sp4-el): 52.7 ml EDV(sp2-el): 39.2 ml LVAs ap4: 12.3 cm2 LVAs ap2: 9.9 cm2 LVLs ap4: 6.0 cm LVLs ap2: 5.8 cm ESV(MOD-sp4): 21.8 ml ESV(MOD-sp2): 14.3 ml ESV(sp4-el): 21.5 ml ESV(sp2-el): 14.4 ml EF(MOD-sp4): 57.0 % EF(MOD-sp2): 62.9 % EF(sp4-el): 59.2 % SV(MOD-sp4): 28.9 ml SV(MOD-sp2): 24.3 ml SV(sp4-el): 31.2 ml SI(MOD-sp4): 16.6 ml/m2 SI(MOD-sp2): 13.9 ml/m2 LA dimension(2D): 3.1 cm RA A4 area: 10.7 cm2 TAPSE: 2.2 cm Time Measurements MV dec time: 0.21 sec Doppler Measurements & Calculations MV E max andrew: 76.8 cm/sec Lat Peak E' Andrew: 6.5 cm/sec Med Peak E' Andrew: 7.6 cm/sec MV A max andrew: 103.0 cm/sec E/E' lat: 11.7 E/E' med: 10.1 MV E/A: 0.74 MV V2 max: 121.3 cm/sec MV P1/2t max andrew: 102.9 cm/sec Ao V2 max: 88.6 cm/sec MV max P.9 mmHg MV P1/2t: 64.2 msec Ao max P.1 mmHg MV V2 mean: 66.8 cm/sec Ao V2 mean: 63.8 cm/sec MV mean P.1 mmHg MV dec slope: 469.1 cm/sec2 Ao mean P.8 mmHg MV V2 VTI: 33.2 cm MVA(P1/2t): 3.4 cm2 Ao V2 VTI: 21.0 cm AV (velocity ratio): 1.1 LV V1 max: 88.9 cm/sec PA V2 max: 102.3 cm/sec TR max andrew: 215.9 cm/sec LV V1 max P.2 mmHg TR max P.6 mmHg LV V1 mean P.8 mmHg LV V1 mean: 62.8 cm/sec LV V1 VTI: 22.7 cm ECHO/Echo Complete Interpretation Summary Normal LV size. Left ventricular systolic function is normal. The left ventricular ejection fraction is 65 %. Structurally normal valves. Ordering Physician: James Barragan Referring Physician: Marcin Khan Performed By: Lay Knox, LUPE, RVT
== END | disposition home or self-care (01) ==
LOC: CVS 06:54
PROVIDERS: PCP Family Medicine; Referring Provider Internal Medicine Cardiovascular Disease; Visit Provider Internal Medicine Cardiovascular Disease
DX: R55 Syncope and collapse (principal)
CPT/HCPCS: 93306

== ENCOUNTER → 2025-02-22 | Outpatient (CLI) | payer MEDICARE, BC, SELFPAY ==
--- NOTE | 2025-02-22 15:26 | BD_ITS ---
PROCEDURE: DEXA BONE DENSITY STUDY 02/22/2025 REASON FOR EXAM: F, age 69 y/o . Postmenopausal. TECHNIQUE: DXA scan of sites with data reported below. [facility] LINKS: [facility] COMPARISON: Prior study dated October 29, 2022. FINDINGS: BMD and T-SCORES Lumbar spine: 0.765 g/cm2, T-score -2.3 Levels: L1-L4 Change from prior: Improvement of 50%. Left femoral neck: 0.733 g/cm2, T-score -1.0 Femoral neck comparison data not recommended for monitoring change. Left total hip: 0.830 g/cm2, T-score -0.9 Change from prior: Improvement of 8.3%. Right femoral neck: 0.677 g/cm2, T-score -1.5 Femoral neck comparison data not recommended for monitoring change. Right total hip: 0.848 g/cm2, T-score -0.8 Change from prior: Improvement of 5.2%. The World Health Organization has defined the following categories based on bone density: Normal bone density: T-score equal to or greater than -1.0 Osteopenia: T-score between -1.0 and -2.5 Osteoporosis: T-score equal to or less than -2.5 The patient does meet the pharmacological treatment recommendations for prevention of osteoporosis. BD/Dexa Bone Density Study IMPRESSION: OSTEOPENIA. Recommend follow-up as clinically warranted. Reading Location: [place] [id number]
== END | disposition home or self-care (01) ==
LOC: OPBD 15:22
PROVIDERS: PCP Family Medicine; Referring Provider Family Medicine; Visit Provider Family Medicine
DX: M81.0 Age-related osteoporosis without current pathological fracture (principal)
CPT/HCPCS: 77080

== ENCOUNTER → 2025-03-15 | Outpatient (CLI) | payer MEDICARE, BC, SELFPAY ==
--- NOTE | 2025-03-15 07:00 | BI_ITS ---
EXAM: SCRN MAMM (CAD)W/KHAI BILAT DATE: 03/15/2025 CLINICAL HISTORY: F, Age 69 y/o , SCREENING BREAST CANCER RISK ASSESSMENT: Not reported TECHNIQUE: Bilateral screening digital breast tomosynthesis with 2D and 3D images. Computer aided detection. COMPARISON: Prior exam(s) were compared FINDINGS: TISSUE DENSITY: The breast tissue is heterogenously dense, which may obscure small masses. Bilateral Breast Mammographic Findings: No suspicious masses, calcifications or other abnormalities are identified. BI/SCRN MAMM (CAD)W/KHAI BILAT IMPRESSION: OVERALL FINAL ASSESSMENT: BIRADS 1 NEGATIVE RECOMMENDATION: Routine annual follow-up in 1 Year A letter with findings and recommendations will be mailed to the patient. Reading Location: [id number]
--- OUTSIDE RECORDS SUMMARY | 2025-03-15 07:02 | XMS RPT_ITS | CCD ---
Author Organization [facility] Care Team Providers Care Technology Development Intern Name Role Phone Loreta RN, Ariana Wren Unavailable Unavailable Guero Khan MD Primary Care Provider PORTER CARLIN, DR GUILLERMO Ryan JR Primary Care Physician Guero Khan MD Primary Care Provider PORTER CARLIN, DR GUILLERMO Ryan JR Primary Care Isacc SHI MD, DR ANJELICA Wren Attending Unavailab ambika BUENROSTRO MD, DR GUILLERMO Ryan JR Primary Care Isacc SHI MD, DR ANJELICA Wren Attending Valenteab MARCIE Gillespie Attending Unavailable PORTER CARLIN, DR GUILLERMO Ryan JR Primary Care Isacc SHI MD, DR ANJELICA Wren Admitting Unavailab Michele CARLIN, DR ANJELICA Wren Referring UnavailMARCIE Johnson Consulting Unavailable Guero Khan MD Primary Care Provider Guero Khan MD Primary Care Provider GUERO KHAN Primary Care UnavailGUERO Melvin Primary Care UnavailMILTON Myles Referring Unavailable MILTON LUJAN Referring Unavailable GUERO KHAN Primary Care UnavailMILTON Myles Attending Unavailable GUERO KHAN Primary Care Unavailenzo Khan MD, Dr. Burch Primary Care Provider Alfreda CARLIN, Dr. Burch Attending Provider Alfreda CARLIN, Dr. Burch Referring Provider Bill CARLIN, Dr. Burch Referring Provider [phone] Yung CARLIN, Dr. Ramirez Attending Provider Yung CARLIN, Dr. Ramirez Referring Provider Robby CARLIN, Dr. García Attending Provider Bill CARLIN, Dr. Burch Attending Provider Bill CARLIN, Dr. Burch Primary Care Provider Marcie Barragan Attending Unavailable Marcie Barragan Referring Unavailable Bill, Guero Primary Care Unavailable Bill, Guero Primary Care Unavailable Guero Gant Attending Unavailabl e Alfreda, Christdisha Referring Unavailabl e Ricky Bustamante Attending Unavailable [facility] Marcie Barragan Attending Unavailable Bill, Guero Referring Unavailable [facility], [facility] Unavailable Guero Khan Attending Unavailable Bill, Guero Referring Unavailable [facility] Unavailable Guero Khan Attending Unavailable Bill, Guero Referring Unavailable [facility] Unavailable Guero Khan Attending Unavailable Bill, Guero Referring Unavailable [facility] Unavailable Milton Lujan Attending Unavailable Milton Lujan Referring Unavailable [facility] Unavailable Allergies Allergy Classification Reported Allergen(s) Allergy Type Date of Onset Reaction(s) Facility Iodine (and Iodine containting drugs) (1 source) Iodine Drug Allergy 09-06-20 16 Rash [facility] Macrolides (antibiotic) (1 source) Erythromycin Drug Allergy 10-17-19 09 Vomiting [facility] Penicillins (antibiotic) (1 source) Penicillins Drug Allergy 11-27-19 06 Unknown [facility] Prochlorperazine (1 source) Prochlorperazine Drug Allergy 10-17-19 09 Intolerance [facility] Quinolones (antibiotic) (1 source) Ciprofloxacin Drug Allergy 07-31-20 12 Rash [facility] (3 sources) ciprofloxacin; Translations: [Ciprofloxacin] Drug Allergy 01-08-20 13 RASH [facility] Work Phone: (20 sources) iodine; Translations: [iodine topical] Drug Allergy 01-08-20 13 Rash [facility] Work Phone: (3 sources) penicillin; Translations: [penicillin] Drug Allergy 01-08-[address] [facility] Work Phone: (1 source) tetracycline Drug Allergy 01-08-20 13 [facility] Work Phone: (18 sources) Ciprofloxacin; Translations: [CIPROFLOXACIN] Drug Allergy 07-31-20 12 Rash [facility] (19 sources) Penicillins; Translations: [PENICILLINS] Allergy to substance 11-27-19 06 Unknown [facility] (10 sources) Tetracyclines; Translations: [Tetracyclines] Allergy to substance 04-30-20 21 Rash [facility] (2 sources) copazine Allergy to substance 04-30-20 21 unknown [facility] Work Phone: (2 sources) betadine scrub Propensity to adverse reactions 04-30-20 21 red rash [facility] Work Phone: (9 sources) Erythromycin; Translations: [ERYTHROMYCIN] Drug Allergy 10-17-19 09 Vomiting [facility] (17 sources) Prochlorperazine; Translations: [prochlorperazine] Drug Allergy 10-17-19 09 Intolerance [facility] (7 sources) Povidone-Iodine Drug Allergy 05-27-20 22 Rash [facility] (1 source) cantaloupe allergenic extract Drug Allergy itcy mouth [facility] (1 source) Hard cheese Food allergy itcy mouth [facility] (1 source) Walnuts Food allergy itchy mouth [facility] (3 sources) Alendronate Drug Allergy 12-08-19 25 Other [facility] (3 sources) atorvastatin Drug Allergy 12-08-19 25 Diarrhea [facility] (3 sources) ezetimibe Drug Allergy 12-08-19 25 [facility] Comment on above: myalgias (3 sources) Cskxjdm-Sal-Fmu Reductase Inhibitor Allergy to substance 12-08-19 25 Other [facility] Comment on above: myalgias (1 source) Alendronate Drug Allergy 12-08-19 25 [facility] Repository (1 source) atorvastatin Drug Allergy 12-08-19 25 [facility] Rep[facility] (1 source) Ciprofloxacin Drug Allergy 12-08-19 [facility] Repository (1 source) ezetimibe Drug Allergy 12-08-19 [facility] Repository (1 source) Povidone-Iodine Drug Allergy 12-08-19 [facility] (1 source) Prochlorperazine Drug Allergy 12-08-19 [facility] Rep[facility] (1 source) Gcdyakd-Kig-Cew Reductase Inhibitor Drug allergy (disorder) 12-08-19 [facility] Repository Medications Current Medications Medication Drug Class(es) Dates Sig (Normalized) Sig (Original) 1.14 ML dupilumab 175 MG/ML Auto-Injector [Dupixent] (2 sources) Start: 07-04-2023 inject 1 dose by subcutaneous injection every other week Dupixent Pre-filled Pen 200 mg/1.14 mL subcutaneous solution Dose : 200 mg =, Subcutaneous, q2wk, rotate injection sites, # 2.28 mL, 0 Refill(s) Start Date: 07/04/23 Status: Ordered acetaminophen 1000 mg oral tablet (1 source) Start: 07-30-2023 take 1 tablet by mouth once daily Tylenol Dose : 1,000 mg = 2 tab(s), Oral, TID, not to exceed 3000 mg/day, 0 Refill(s) Start Date: 07/30/23 Status: Ordered Beclomethasone (9 sources) Corticosteroid beclomethasone dipropionate (QVAR INHALATION) Inhale as instructed every other day. Active beclomethasone d ipropionate (QVAR INHALATION) Inhale as instructed every other day. 0 Active Comment on above: Inhale as instructed every other day. calcium carbonate 1500 mg oral tablet (5 sources) Start: 11-10-2024 take 1 tablet by mouth twice daily Calcium Carbonate 600 mg calcium (1,500 mg) tablet Active 600 mg PO TWICE A DAY November 10, 2024 1:00am Start: 07-04-2023 calcium (as ca rbonate) 600 mg oral tablet Dose : 600 mg = 1 tab(s), Oral, qDay, 0 Refill(s) Start Date: 07/04/23 Status: Ordered Centrum Silver oral tablet (2 sources) Start: 07-04-2023 take 1 tablet by mouth once daily Centrum Silver oral tablet Dose = 1 tab(s), Oral, qDay, # 30 tab(s), 0 Refill(s) Start Date: 07/04/23 Status: Ordered cephalexin 500 mg oral capsule (1 source) Cephalosporin Antibacterial Start: 06-20-2024 End: 06-25-2024 take 1 capsule by mouth four times daily cephALEXin (KEFLEX) 500 mg capsule Indications: Skin infection Take 1 capsule by mouth four times daily for 5 days. 20 capsule 06/20/2024 06/25/2024 Active cholecalciferol 0.05 mg oral capsule (3 sources) Vitamin D Start: 11-10-2024 take 1 capsule by mouth once daily Cholecalciferol (Vitamin D3) 50 mcg (2,000 unit) capsule Active 50 ug PO daily November 10, 2024 1:00am cyanocobalamin, vitamin B-12, (B-12 DOTS ORAL) (9 sources) cyanocobalamin, vitamin B-12, (B-12 DOTS ORAL) Take by mouth. Active cyanocobalamin, vitamin B-12, (B-12 DOTS ORAL) Take by mouth. 0 Active Comment on above: Take by mouth. 1 ml denosumab 60 mg/ml prefilled syringe (6 sources) RANK Ligand Inhibitor Start: 11-10-2024 Denosumab (Prolia) 60 mg/mL syringe Active 60 mg SC every 6 months November 10, 2024 1:00am Start: 07-04-2023 Prolia 60 mg/m L subcutaneous solution Dose : 60 mg = 1 mL, Subcutaneous, q6mo, # 1 mL, 0 Refill(s) Start Date: 07/04/23 Status: Ordered desloratadine 5 mg oral tablet (9 sources) Histamine-1 Receptor Antagonist Start: 02-19-2021 desloratadine (CLARINEX) 5 mg tablet 02/19/2021 Active docosahexaenoic acid 144 mg / eicosapentaenoic acid 216 mg / vitamin e 2 unt oral capsule (3 sources) Start: 11-10-2024 Palmer-3 Fatty Acids-Fish Oil (Fish Oil) 360-1,200 mg capsule Active 1 NMA PO daily November 10, 2024 1:00am docusate sodium 50 mg / sennosides, prison 8.6 mg oral tablet (1 source) Start: 07-30-2023 End: 08-02-2023 take 1 tablet by mouth twice daily Senokot S 50 mg-8.6 mg oral tablet Dose = 2 tab(s), Oral, BID, Take until first bowel movement, then as needed, X 3 day(s), # 12 tab(s), 0 Refill(s), Pharmacy: [facility]/pharmacy #[id number], 162.6, cm, 07/29/23 15:54:00 EDT, Height, kg, 07/29/23 15:54:00 EDT, Dosing Weight Start Date: 07/30/23 Stop Date: 08/02/23 Status: Ordered 2 ml dupilumab 150 mg/ml auto-injector (12 sources) Interleukin-4 Receptor alpha Antagonist Start: 11-10-2024 Dupilumab (Dupixent Pen) 300 mg/2 mL pen injector Active 300 mg SC every 2 weeks November 10, 2024 1:00am dupilumab (DUPIX ENT PEN) 300 mg/2 mL pen Inject subcutaneously every 2 weeks. Active Comment on above: Inject subcutaneousl y every 2 weeks. esomeprazole 20 mg delayed release oral capsule (20 sources) Proton Pump Inhibitor Start: 11-10-19 take 1 capsule by mouth once daily Esomeprazole Magnesium (Nexium) 20 mg capsule,delayed release(DR/EC) Active 20 mg PO daily November 10, 2024 9:38am Start: 12-02-2017 End: 11-10-2024 take 1 capsule by mouth every other day as needed Esomeprazole Magnesium (Nexium) 20 mg capsule,delayed release(DR/EC) Discontinued 0 PO daily December 02, 2017 3:18pm November 10, 2024 9:42am 20 mg every other day PO QDAY PRN Start: 09-23-2017 End: 12-02-2017 take 1 capsule by mouth once daily Esomeprazole Magnesium (Nexium) 20 mg capsule,delayed release(DR/EC) Discontinued 20 mg PO daily September 23, 2017 1:00am December 02, 2017 3:19pm Start: 03-23-2014 End: 09-23-2017 take 1 capsule by mouth once daily Esomeprazole Magnesium 40 MG capsule Discontinued 40 mg PO DAILY March 23, 2014 12:00am September 23, 2017 12:50pm Start: 01-07-2013 NEXIUM PACK As Directed ESOMEPRAZOLE MAGNESIUM PACK [id number] Xiomara Garcia Comment on above: Take 20 mg by mouth DAILY (6 AM). 1 ml evolocumab 140 mg/ml auto-injector (3 sources) PCSK9 Inhibitor Start: 11-10-2024 Evolocumab (Repatha Sureclick) 140 mg/mL pen injector Active 140 mg SC every 2 weeks November 10, 2024 1:00am Fish Oils (1 source) Start: 07-04-2023 Fish Oil 1000 mg oral capsule Dose : 1,000 mg = 1 cap(s), Oral, qDay, # 90 cap(s), 0 Refill(s) Start Date: 07/04/23 Status: Ordered Fluticasone Propionate (20 sources) Corticosteroid Start: 11-10-2024 Fluticasone Propionate 100 mcg/actuation blister with device Active 1 NMA INHALATION DAILY November 10, 2024 1:00am Start: 09-23-2017 Fluticasone Pr opionate (Flonase Allergy Relief) 50 mcg/actuation spray,suspension Active 50 ug INTRANASAL TWICE A DAY September 23, 2017 1:00am Start: 01-07-2013 FLONASE SUSP A s Directed FLUTICASONE PROPIONATE SUSP [id number] Xiomara Gacria fluticasone prop ionate (FLONASE NASAL) Use in the nose. Active fluticasone prop ionate (FLONASE NASAL) Use in the nose. 0 Active Comment on above: Use in the nose. ammonium lactate 120 mg/ml topical lotion (9 sources) Start: 03-12-2006 AMMONIUM LACTATE 12 % LOTION bid at affected areas 225 gm or otc 3 03/12/2006 Active Comment on above: bid at affected area s levothyroxine sodium 0.075 mg oral capsule (14 sources) l-Thyroxine Start: 11-10-2024 Levothyroxine 75 mcg capsule Active 37.5 ug PO daily November 10, 2024 1:00am Start: 07-04-2023 levothyroxine 37.5 mcg (0.0375 mg) oral capsule Dose : 37.5 International_Unit = 1 cap(s), Oral, qDay, on an empty stomach, # 30 EA, 0 Refill(s) Start Date: 07/04/23 Status: Ordered levothyroxine (S YNTHROID) 75 mcg tablet Take 37 mcg by mouth daily before breakfast. Active take 1 capsule by mo ut once daily before breakfast levothyroxine 25 mcg cap Take 25 mcg by mouth daily before breakfast. 0 Active Comment on above: Take 25 mcg by mouth daily before breakfast. magnesium citrate 100 mg oral tablet (2 sources) Start: 3 magnesium citrate 100 mg oral capsule Dose : 100 mg = 1 cap(s), Oral, qDay, # 120 cap(s), 0 Refill(s) Start Date: 07/04/23 Status: Ordered montelukast 10 mg oral tablet (20 sources) Leukotriene Receptor Antagonist Start: 3 take 1 tablet by mouth once daily SINGULAIR TABS One tablet by mouth daily MONTELUKAST SODIUM TABS [id number] Xiomara Garcia Start: 01-07-2013 SINGULAIR TABS As Directed MONTELUKAST SODIUM TABS [id number] Xiomara Garcia Start: 11-27-2005 take 1 tablet by kaiden th once daily Montelukast 10 MG tablet Active 10 mg PO DAILY March 23, 2014 12:00am Comment on above: Take one(1) tablet d aily at bedtime. naproxen sodium 550 mg oral tablet (20 sources) Nonsteroidal Anti-inflammatory Drug Start: 11-10-2024 take 1 tablet by mouth every twelve hours as needed Naproxen Sodium 550 mg tablet Active 550 mg PO Q12H as needed November 10, 2024 1:00am Start: 12-02-2017 End: 08-10-2018 take 1 tablet by mouth every twelve hours as needed Naproxen (Ec-Naprosyn) 500 mg tablet,delayed release (DR/EC) Discontinued 500 mg PO Q12H as needed December 02, 2017 1:00am August 10, 2018 11:01am Start: 01-07-2013 NAPROSYN TABS As Directed NAPROXEN TABS [id number] Xiomara Garcia take 1 tablet by kaiden th twice daily at mealtime as needed for pain naproxen (NAPROSYN) 500 mg tablet Take 500 mg by mouth twice daily with meals. as needed for pain Active Comment on above: Take 500 mg by mouth twice daily with meals. as needed for pain Palmer-3 Fatty Acids-Vitamin E (FISH OIL) 1,000 mg cap (9 sources) Palmer-3 Fatty Ac ids-Vitamin E (FISH OIL) 1,000 mg cap Indications: Cholelithiasis , Pre-op testing Take 1 capsule by mouth. Active Palmer-3 Fatty Ac ids-Vitamin E (FISH OIL) 1,000 mg cap Indications: Cholelithiasis , Pre-op testing Take 1 capsule by mouth. 0 Active Comment on above: Take 1 capsule by mo [facility]. oxyCODONE hydrochloride 5 mg oral tablet (1 source) Opioid Agonist Start: End: take 1-2 tablets by mouth every four hours as needed for pain oxyCODONE 5 mg oral tablet ( IMMEDIATE release ) See Instructions, PRN as needed for pain, 1-2 tab(s) Oral q4h, # 42 tab(s), 0 Refill(s), 08/06/23 6:40:00 AM EDT, Pharmacy: [facility]/pharmacy #[id number], Status post total left knee replacement, 162.6, cm, 07/29/23 15:54:00 EDT, Height, 68.2, kg, 07/29/23 15:54:00 EDT, Dosing Weight Start Date: 07/30/23 Stop Date: 08/06/23 Status: Ordered pravastatin sodium 10 mg oral tablet (7 sources) HMG-CoA Reductase Inhibitor Start: 022 take 1 tablet by mouth once daily pravastatin (PRAVACHOL) 10 mg tablet Take 10 mg by mouth once daily. 04/01/2022 Active Comment on above: Take 10 mg by mouth once daily. triamcinolone acetonide 0.055 mg/actuat metered dose nasal spray (9 sources) Corticosteroid Start: TRIAMCINOLONE ACETONIDE 55 mcg nasal inhaler Indications: Cholelithiasis , Pre-op testing once daily. Switch on and off with flonase 05/14/2012 Active Comment on above: once daily. Switch o n and off with flonase Vitamin D3 25 mcg (1000 intl units) oral tablet (2 sources) Start: 023 Vitamin D3 25 mcg (1000 intl units) oral tablet Dose : 25 mcg = 1 tab(s), Oral, qDay, # 30 tab(s), 0 Refill(s) Start Date: 07/04/23 Status: Ordered Completed/Discontinued Medications Medication Drug Class(es) Dates Sig (Normalized) Sig (Original) [id number] 200 actuat albuterol 0.09 mg/actuat metered dose inhaler (18 sources) beta2-Adrenergic Agonist Start: 12-02-2017 End: 12-07-2024 Albuterol Sulfate 1 INHALER inhaler Discontinued 1 - 2 NMA INHALATION .COMPLEX December 02, 2017 3:17pm December 07, 2024 3:33pm 1 - 2 puff INHALATION before exercise Start: 12-02-2017 Albuterol Sulf ate Active 1 - 2 PUFF INHALATION .COMPLEX December 02, 2017 3:17pm 1 - 2 puff INHALATION before exercise Start: 03-23-2014 End: 12-02-2017 take 1 puff(s) by inhalation every four hours as needed Albuterol Sulfate Discontinued 1 - 2 PUFF INHALATION EVERY 4 HOURS NEEDED March 23, 2014 2:47pm December 02, 2017 3:19pm Start: 03-23-2014 End: 12-02-2017 Albuterol Sulfate 1 INHALER inhaler Discontinued 1 - 2 NMA INHALATION EVERY 4 HOURS NEEDED as needed for Wheezing March 23, 2014 12:00am December 02, 2017 3:19pm Start: 03-23-2014 End: 12-02-2017 take 1 puff(s) by inhalation every four hours as needed Albuterol Sulfate Discontinued 1 - 2 PUFF INHALATION EVERY 4 HOURS NEEDED March 23, 2014 12:00am December 02, 2017 3:19pm aspirin 81 mg delayed release oral tablet (4 sources) Platelet Aggregation Inhibitor, Nonsteroidal Anti-inflammatory Drug Start: 11-10-2024 End: 12-07-2024 take 1 tablet by mouth once daily Aspirin (Adult Aspirin Regimen) 81 mg tablet,delayed release (DR/EC) Discontinued 81 mg PO daily November 10, 2024 1:00am December 07, 2024 3:31pm Start: 07-30-2023 take 1 tablet by kaiden th twice daily at mealtime aspirin Dose : 81 mg = 1 tab(s), Oral, BIDM, Take 81 mg aspirin twice daily with food for 4 weeks postoperatively for DVT prophylaxis., 0 Refill(s) Start Date: 07/30/23 Status: Ordered 60 actuat ciclesonide 0.08 mg/actuat metered dose inhaler (18 sources) Start: 12-02-2017 End: 12-07-2024 Ciclesonide (Alvesco) 80 mcg/actuation HFA aerosol inhaler Discontinued 1 NMA INHALATION .q other day December 02, 2017 3:18pm December 07, 2024 3:32pm Start: 12-02-2017 Ciclesonide (A lvesco) 80 mcg/actuation HFA aerosol inhaler Active 1 INH INHALATION .q other day December 02, 2017 3:18pm Start: 09-24-2017 End: 12-02-2017 Ciclesonide (Alvesco) 80 mcg /actuation HFA aerosol inhaler Discontinued 1 NMA INHALATION ONCE September 24, 2017 1:00am December 02, 2017 3:19pm Start: 09-24-2017 End: 12-02-2017 Ciclesonide (Alvesco) 80 mcg /actuation HFA aerosol inhaler Discontinued 1 INH INHALATION ONCE September 24, 2017 1:00am December 02, 2017 3:19pm doxycycline hyclate 100 mg oral capsule (9 sources) Tetracycline-class Drug Start: 03-12-2017 End: 09-23-2017 take 1 capsule by mouth twice daily Doxycycline Hyclate 100 MG capsule Discontinued 100 mg PO TWICE A DAY March 12, 2017 12:00am September 23, 2017 12:52pm Fill this and start it on 03/15/17 if not improving lecithin 1200 mg oral capsule (3 sources) Start: 11-10-2024 End: 12-07-2024 take 1 capsule by mouth once daily Lecithin 1,200 mg capsule Discontinued 1200 mg PO daily November 10, 2024 1:00am December 07, 2024 3:33pm give with meal/snack Palmer 6-Xkl-Iwn-Fish Oil (Fish Oil) 60-90-500 mg capsule (9 sources) Start: 09-24-2017 End: 08-10-2018 Palmer 0-Tnp-Taa-Fish Oil (Fish Oil) 60-90-500 mg capsule Discontinued CAP PO September 24, 2017 4:23pm August 10, 2018 11:01am Start: 09-24-2017 End: 08-10-2018 Palmer 3-Qxs-Wyd-Fish Oil (Fi sh Oil) 60-90-500 mg capsule Discontinued NMA PO September 24, 2017 1:00am August 10, 2018 11:01am Start: 09-24-2017 End: 08-10-2018 Palmer 4-Wvg-Uvb-Fish Oil (Fi sh Oil) 60-90-500 mg capsule Discontinued CAP PO September 24, 2017 12:00am August 10, 2018 10:01am Start: 09-24-2017 End: 08-10-2018 Palmer 8-Hjl-Xfk-Fish Oil (Fi sh Oil) 60-90-500 mg capsule Discontinued CAP PO September 24, 2017 1:00am August 10, 2018 11:01am terbinafine 250 mg oral tablet (9 sources) Allylamine Antifungal Start: 04-30-2021 End: 12-07-2024 Terbinafine Hcl 250 mg tablet Discontinued 25 mg PO DAILY April 30, 2021 12:00am December 07, 2024 3:33pm Start: 04-30-2021 take 25 mg by mouth once daily Terbinafine Hcl Active 25 MG PO DAILY April 30, 2021 12:00am Problems Active Problems Problem Classification Problem Date Documented Da te Episodic/Chronic Asthma (9 sources) Exercise-induced asthma; Translations: [Exercise induced bronchospasm] Onset: 6 08-08-2016 Chronic Disorders of lipid metabolism (20 sources) Mixed hyperlipidemia; Translations: [Mixed hyperlipidemia] Onset: 7 10-25-2016 Chronic Esophageal disorders (12 sources) Gastroesophageal reflux disease without esophagitis; Translations: [Gastro-esophageal reflux disease without esophagitis] Onset: 8 04-10-2018 Chronic Essential hypertension (6 sources) Hypertensive disorder; Translations: [Essential (primary) hypertension] 12-07-2024 Chronic Nausea and vomiting (1 source) Nausea and vomiting; Translations: [Nausea with vomiting, unspecified] Onset: Episodic Nonmalignant breast conditions (9 sources) Fibrocystic disease of breast; Translations: [Diffuse cystic mastopathy of unspecified breast] Onset: 9 10-17-2008 Chronic Nonmalignant breast conditions (2 sources) Breast finding ; Translations: [Dense breast] 01-19-2024 Episodic Nonspecific chest pain (1 source) Chest wall pain; Translations: [Other chest pain] 01-19-2024 Episodic Osteoarthritis (20 sources) Osteoarthritis of knee; Translations: [Primary arthrosis of first carpometacarpal joints, bilateral] Onset: 6 01-18-2013 Chronic Osteoporosis (1 source) Age-related osteoporosis without current pathological fracture; Translations: [Age-related osteoporosis without current pathological fracture] Onset: 5 Chronic Other connective tissue disease (1 source) Artificial knee joint present; Translations: [Presence of left artificial knee joint] Onset: 3 Chronic Other gastrointestinal disorders (1 source) H/O: gastrointestinal disease; Translations: [Personal history of other diseases of the digestive system] Onset: 3 Episodic Other lower respiratory disease (3 sources) Dyspnea; Translations: [Dyspnea, unspecified] 11-10-2024 Episodic Other screening for suspected conditions (not mental disorders or infectious disease) (9 sources) Patient encounter status; Translations: [Encounter for screening mammogram for malignant neoplasm of breast] Onset: 4 Episodic Other upper respiratory infections (1 source) Chronic sinusitis, unspecified; Translations: [Chronic sinusitis, unspecified] Onset: 5 Chronic Other upper respiratory infections (9 sources) Upper respiratory infection; Translations: [Acute upper respiratory infection, unspecified] 03-13-2017 Episodic Residual codes; unclassified (3 sources) Hypersomnia; Translations: [Hypersomnia, unspecified] 11-10-2024 Chronic Skin and subcutaneous tissue infections (1 source) Infection of skin; Translations: [Local infection of the skin and subcutaneous tissue, unspecified] 06-20-2024 Episodic Spondylosis; intervertebral disc disorders; other back problems (1 source) Cervical radiculopathy; Translations: [Radiculopathy, cervical region] 03-15-2013 Chronic Superficial injury; contusion (10 sources) Contusion of hand; Translations: [Contusion of chest] Onset: 4 2014 Episodic Syncope (20 sources) Near syncope; Translations: [Syncope and collapse] Onset: 1 08-20-2021 Episodic Thyroid disorders (10 sources) Hypothyroidism; Translations: [Hypothyroidism, unspecified] Onset: 1 08-20-2021 Chronic Unclassified (1 source) Dense breast; Translations: [Dense breast] Onset: 4 Past or Other Problems Problem Classification Problem Date Documented Date Episodic/Chronic Cardiac dysrhythmias (10 sources) Palpitations; Translations: [Palpitations] Onset: 12-07-2024 09-24-2017 Episodic Comment on above: She appears to be kilgore ving the above though she cannot quite characterize them. Once again an event monitor and an echocardiogram and a loop recorder may help elucidate this problem. Joint disorders and dislocations; trauma-related (11 sources) Tear of lateral meniscus of knee; Translations: [Tear of medial meniscus of knee] Onset: 04-03-2018 01-18-2013 Episodic Other connective tissue disease (3 sources) Pain in unspecified hand; Translations: [Lateral epicondylitis, unspecified elbow] Onset: 04-22-2014 04-22-2014 Episodic Other non-traumatic joint disorders (1 source) Knee pain; Translations: [Pain in left knee] 01-07-2013 Episodic Residual codes; unclassified (9 sources) Family history of breast cancer; Translations: [Family history of malignant neoplasm of breast] Onset: 08-12-2008 08-12-2008 Episodic Residual codes; unclassified (9 sources) Family history of malignant neoplasm of gastrointestinal tract; Translations: [Family history of malignant neoplasm of digestive organs] Onset: 08-12-2008 08-12-2008 Episodic Results Test Name Value Interpretation Reference Range Facility Bone density reportOrdered B y: Kip Freed on 02-23-2025 Study report Skeletal system DXA [facility] Imaging Services [address] [place] [id number] Dexa Bone Density Study MR#: [id number] Acct: [id number] Name: MARISSA MARVIN Rep #: [id number] : 1955 F 69 From: Chadwick Freed MD PCP: Dr. Guero Khan MD Status: REG CLI Study:Dexa Bone Density Study Date of Exam: 02/22/25 Exam# [id number] Ordering Dr: Vianca Khan MD PROCEDURE: DEXA BONE DENSITY STUDY 02/22/2025 REASON FOR EXAM: F, age 69 y/o . Postmenopausal. TECHNIQUE: DXA scan of sites with data reported below. [facility]KS[facility] COMPARISON: Prior study dated October 29, 2022. FINDINGS: BMD and T-SCORES Lumbar spine: 0.765 g/cm2, T-score -2.3 Levels: L1-L4 Change from prior: Improvement of 50%. Left femoral neck: 0.733 g/cm2, T-score -1.0 Femoral neck comparison data not recommended for monitoring change. Left total hip: 0.830 g/cm2, T-score -0.9 Change from prior: Improvement of 8.3%. Right femoral neck: 0.677 g/cm2, T-score -1.5 Femoral neck comparison data not recommended for monitoring change. Right total hip: 0.848 g/cm2, T-score -0.8 Change from prior: Improvement of 5.2%. The World Health Organization has defined the following categories based on bonedensity: Normal bone density: T-score equal to or greater than -1.0 Osteopenia: T-score between -1.0 and -2.5 Osteoporosis: T-score equal to or less than -2.5 The patient does meet the pharmacological treatment recommendations for prevention of osteoporosis. BD/Dexa Bone Density Study IMPRESSION: OSTEOPENIA. Recommend follow-up as clinically warranted. Reading Location: [place] [address] CC: Dr. Guero Khan MD ~ Community Affairs Director: Signed [facility] Dexa Bone Density Studyon Dexa Bone Density Study [facility] Imaging Services [address] [place] [address] [id number] Dexa Bone Density Study MR#: [id number] Acct: [id number] Name: MARISSA MARVIN Rep #: [id number] : 1955 F 69 From: Kip szymanski MD PCP: Dr. Guero Khan MD Status: [facility] CLI Study: Dexa Bone Density Study Date of Exam: 02/22/25 Exam# [id number] Ordering Dr: Guero Khan PROCEDURE: DEXA BONE DENSITY STUDY 02/22/2025 REASON FOR EXAM: F, age 69 y/o . Postmenopausal. TECHNIQUE: DXA scan of sites with data reported below. RE[facility]ENCE LINKS: [facility] COMPARISON: Prior study dated October 29, 2022. FINDINGS: BMD and T-SCORES Lumbar spine: 0.765 g/cm2, T-score -2.3 Levels: L1-L4 Change from prior: Improvement of 50%. Left femoral neck: 0.733 g/cm2, T-score -1.0 Femoral neck comparison data not recommended for monitoring change. Left total hip: 0.830 g/cm2, T-score -0.9 Change from prior: Improvement of 8.3%. Right femoral neck: 0.677 g/cm2, T-score -1.5 Femoral neck comparison data not recommended for monitoring change. Right total hip: 0.848 g/cm2, T-score -0.8 Change from prior: Improvement of 5.2%. The World Health Organization has defined the following categories based on bone density: Normal bone density: T-score equal to or greater than -1.0 Osteopenia: T-score between -1.0 and -2.5 Osteoporosis: T-score equal to or less than -2.5 The patient does meet the pharmacological treatment recommendations for prevention of osteoporosis. BD/Dexa Bone Density Study IMPRESSION: OSTEOPENIA. Recommend follow-up as clinically warranted. Reading Location: [place] [address] CC: Dr. Guero Khan MD Community Affairs Director: Signed Normal [facility] Anion gap in Serum or Plasma Ordered By: Guero Khan on 12-30-2024 Anion gap [Moles/Vol] 12 mmol/L 5-15 [facility] BUN/creatinine ratioOrdered By: Guero Khan on 12-30-2024 Urea nitrogen/Creatinine [Mass ratio] 22.5 mg/mg High 10-20 [facility] Bilirubin, totalOrdered By: Guero Khan on 12-30-2024 Bilirubin [Mass/Vol] 0.35 mg/dL 0.00-1.30 [facility] Calculated very low density lipoprotein (VLDL) cholesterol measurementOrdered By: Guero Khan on 12-30-2024 Calculated very low density lipoprotein (VLDL) cholesterol measurement 20 mg/dL 5-40 [facility] VLDL Cholesterol 20 mg/dL -40 [facility] Carbon dioxide, total [Moles /volume] in Central venous bloodOrdered By: Guero Khan on 12-30-2024 CO2 [Moles/Vol] 21.5 mmol/L 21.0-32.0 [facility] Chloride assayOrdered By: Sunil Khan on 12-30-2024 Chloride [Moles/Vol] 108 mmol/L 98-108 [facility] Comprehensive Metabolic Prof ilon 12-30-2024 Albumin [Mass/Vol] 4.2 g/dL Normal 3.4-4.8 [facility] Comment on above: Performed By: #### L 506.1001, L500.4050, L509.1000, L500.4100, L503.0106, L501.9520 #### [facility] Laboratory [address] [place], [address] Albumin/Globulin [Mass ratio] 1.6 {ratio} Normal 0.9-2.4 [facility] Comment on above: Performed By: #### L 506.1001, L500.4050, L509.1000, L500.4100, L503.0106, L501.9520 #### [facility] [address] [place], [address] ALK PHOS 49 U/L Normal 35-104 [facility] Comment on above: Performed By: #### L 506.1001, L500.4050, L509.1000, L500.4100, L503.0106, L501.9520 #### [facility] [address] [place], [address] ALT [Catalytic activity/Vol] 17 U/L Normal <=34 [facility] Comment on above: Performed By: #### L 506.1001, L500.4050, L509.1000, L500.4100, L503.0106, L501.9520 #### [facility] [address] [place], [address] AST [Catalytic activity/Vol] 19 U/L Normal <=31 [facility] Comment on above: Performed By: #### L 506.1001, L500.4050, L509.1000, L500.4100, L503.0106, L501.9520 #### [facility] [address] [place], [address] Bilirubin [Mass/Vol] 0.35 mg/dL Normal 0.00-1.30 [facility] Comment on above: Performed By: #### L 506.1001, L500.4050, L509.1000, L500.4100, L503.0106, L501.9520 #### [facility] [address] [place], [address] BUN/CRE 22.5 RATIO High 10-20 [facility] Comment on above: Performed By: #### L 506.1001, L500.4050, L509.1000, L500.4100, L503.0106, L501.9520 #### [facility] [address] [place], [address] Calcium [Mass/Vol] 9.4 mg/dL Normal 7.6-11.0 [facility] Comment on above: Performed By: #### L 506.1001, L500.4050, L509.1000, L500.4100, L503.0106, L501.9520 #### [facility] [address] [place], [address] Chloride [Moles/Vol] 108 mmol/L Normal 98-108 [facility] Comment on above: Performed By: #### L 506.1001, L500.4050, L509.1000, L500.4100, L503.0106, L501.9520 #### [facility] [address] [place], [address] CO2 [Moles/Vol] 21.5 mmol/L Normal 21.0-32.0 [facility] Comment on above: Performed By: #### L 506.1001, L500.4050, L509.1000, L500.4100, L503.0106, L501.9520 #### [facility] [address] [place], [address] Creatinine [Mass/Vol] 0.64 mg/dL Low 0.70-1.20 [facility] Comment on above: Performed By: #### L 506.1001, L500.4050, L509.1000, L500.4100, L503.0106, L501.9520 #### [facility] [address] [place], [address] GAP 12 Normal 5-15 [facility] Comment on above: Performed By: #### L 506.1001, L500.4050, L509.1000, L500.4100, L503.0106, L501.9520 #### [facility] [address] [place], [address] GFR/1.73 sq M.predicted among non-blacks MDRD (S/P/Bld) [Vol rate/Area] 95 mL/min/{1.73_m2} Normal >60 [facility] Comment on above: Result Comment: mL/m in/1.73m2 CKD-EPI Creatinine Equation (2020) Performed By: #### L 506.1001, L500.4050, L509.1000, L500.4100, L503.0106, L501.9520 #### [facility] [address] [place], [address] Globulin (S) [Mass/Vol] 2.6 g/dL Normal 2.2-4.2 [facility] Comment on above: Performed By: #### L 506.1001, L500.4050, L509.1000, L500.4100, L503.0106, L501.9520 #### [facility] [address] [place], [address] Glucose [Mass/Vol] 75 mg/dL Normal 70-99 [facility] Comment on above: Performed By: #### L 506.1001, L500.4050, L509.1000, L500.4100, L503.0106, L501.9520 #### [facility] [address] [place], [address] Potassium [Moles/Vol] 4.5 mmol/L Normal 3.3-5.1 [facility] Comment on above: Performed By: #### L 506.1001, L500.4050, L509.1000, L500.4100, L503.0106, L501.9520 #### [facility] [address] [place], [address] Sodium [Moles/Vol] 142 mmol/L Normal 133-145 [facility] Comment on above: Performed By: #### L 506.1001, L500.4050, L509.1000, L500.4100, L503.0106, L501.9520 #### [facility] [address] [place], [address] T PROT 6.8 g/dL Normal 5.9-8.4 [facility] Comment on above: Performed By: #### L 506.1001, L500.4050, L509.1000, L500.4100, L503.0106, L501.9520 #### [facility] [address] [place], [address] Urea nitrogen [Mass/Vol] 14 mg/dL Normal 4-19 [facility] Comment on above: Performed By: #### L 506.1001, L500.4050, L509.1000, L500.4100, L503.0106, L501.9520 #### [facility] [address] [place], [address] Echo Completeon 12-30-[address] [facility] Cardiovascular Services [address] [place] [address] Echo Complete 12/30/24 0704 MR#: [id number] Acct: [id number] Name: MARISSA MARVIN Rep #: [id number] : 1955 69 From: Ricky Bustamante MD Attending Dr: Dr. Marcie Barragan MD Status: G CLI Ordering Dr: Marcie Barragan MD Date: 12/30/24 Location: [facility] Sex: F C Admitted: Reason For Study Reason For Study: SYNCOPE COLLAPSE Procedure This was a 2D Doppler, Color Flow transthoracic echocardiogram. Exam performed in department. Left Ventricle Normal LV size. Left ventricular systolic function is normal. The left ventricular ejection fraction is 65 %. No regional wall motion abnormalities noted. Right Ventricle Normal RV size. Normal systolic function. Atria Normal left atrium. Normal right atrium. Mitral Valve Normal mitral valve. Tricuspid Valve Normal tricuspid valve. Aortic Valve Trisinus/trileaflet aortic valve. Pulmonic Valve Normal pulmonic valve. Great Vessels Normal aortic root. The pulmonary artery is normal size. Inferior vena cava collapse with respiration. Pericardium/Pleural No pericardial effusion. MMode/2D Measurements Calculations LVIDd: 3.8 cm IVSd: 0.84 cm Ao root diam: 3.0 cm LVIDs: 2.4 cm LVPWd: 0.84 cm RVDd: 2.8 cm FS: 37.0 % LAV(MOD-bp): 51.6 ml LVAd ap4: 20.9 cm2 LVAd ap2: 18.1 cm2 LAV(MOD-bp) Indexed: 29.6 ml/m2 LVLd ap4: 7.0 cm LVLd ap2: 7.1 cm LAV(MOD-sp2): 46.9 ml EDV(MOD-sp4): 50.7 ml EDV(MOD-sp2): 38.6 ml LAV(MOD-sp4): 43.3 ml EDV(sp4-el): 52.7 ml EDV(sp2-el): 39.2 ml LVAs ap4: 12.3 cm2 LVAs ap2: 9.9 cm2 LVLs ap4: 6.0 cm LVLs ap2: 5.8 cm ESV(MOD-sp4): 21.8 ml ESV(MOD-sp2): 14.3 ml ESV(sp4-el): 21.5 ml ESV(sp2-el): 14.4 ml EF(MOD-sp4): 57.0 % EF(MOD-sp2): 62.9 % EF(sp4-el): 59.2 % SV(MOD-sp4): 28.9 ml SV(MOD-sp2): 24.3 ml SV(sp4-el): 31.2 ml SI(MOD-sp4): 16.6 ml/m2 SI(MOD-sp2): 13.9 ml/m2 LA dimension(2D): 3.1 cm RA A4 area: 10.7 cm2 TAPSE: 2.2 cm Time Measurements MV dec time: 0.21 sec Doppler Measurements Calculations MV E max flako: 76.8 cm/sec Lat Peak E' Flako: 6.5 cm/sec Med Peak E' Flako: 7.6 cm/sec MV A max flako: 103.0 cm/sec E/E' lat: 11.7 E/E' med: 10.1 MV E/A: 0.74 MV V2 max: 121.3 cm/sec MV P1/2t max flako: 102.9 cm/sec Ao V2 max: 88.6 cm/sec MV max P.9 mmHg MV P1/2t: 64.2 msec Ao max P.1 mmHg MV V2 mean: 66.8 cm/sec Ao V2 mean: 63.8 cm/sec MV mean P.1 mmHg MV dec slope: 469.1 cm/sec2 Ao mean P.8 mmHg MV V2 VTI: 33.2 cm MVA(P1/2t): 3.4 cm2 Ao V2 VTI: 21.0 cm AV (velocity ratio): 1.1 LV V1 max: 88.9 cm/sec PA V2 max: 102.3 cm/sec TR max flako: 215.9 cm/sec LV V1 max P.2 mmHg TR max P.6 mmHg LV V1 mean P.8 mmHg LV V1 mean: 62.8 cm/sec LV V1 VTI: 22.7 cm ECHO/Echo Complete Interpretation Summary Normal LV size. Left ventricular systolic function is normal. The left ventricular ejection fraction is 65 %. Structurally normal valves. Ordering Physician: Marcie Barragan Referring Physician: Guero Khan Performed By: Lay Knox, RAMÍREZCS, RVT 12/30/24932 Date Ricky Bustamante MD CC: Dr. Guero Khan MD; Dr. Marcie Barragan MD Date Dictated: 12/30/24703 Date Transcribed: 12/30/24932 Community Affairs Director: Signed Normal [facility] Echocardiogram study reportO rdered By: Ricky Bustamante on 12-30-2024 Study report [facility] Cardiovascular Services [address] [place] [address] Echo Complete 12/30/24703 MR#: [id number] Acct: [id number] Name: MARISSA MARVIN Rep #:[id number] : 1955 69 From: Ricky Isaacs Attending Dr: Dr. Marcie Barragan MD Status: REG CLI Ordering Dr: Marcie Barragan MD Date: 12/30/24 Location: [facility] Sex: F C Admitted: Reason For Study Reason For Study: SYNCOPE & COLLAPSE Procedure This was a 2D Doppler, Color Flow transthoracic echocardiogram. Exam performed in department. Left Ventricle Normal LV size. Left ventricular systolic function is normal. The left ventricular ejection fraction is 65 %. No regional wall motion abnormalities noted. Right Ventricle Normal RV size. Normal systolic function. Atria Normal left atrium. Normal right atrium. Mitral Valve Normal mitral valve. Tricuspid Valve Normal tricuspid valve. Aortic Valve Trisinus/trileaflet aortic valve. Pulmonic Valve Normal pulmonic valve. Great Vessels Normal aortic root. The pulmonary artery is normal size. Inferior vena cava collapse with respiration. Pericardium/Pleural No pericardial effusion. MMode/2D Measurements & Calculations LVIDd: 3.8 cm IVSd: 0.84 cm Ao root diam: 3.0 cm LVIDs: 2.4 cm LVPWd: 0.84 cm RVDd: 2.8 cm FS: 37.0 % LAV(MOD-bp): 51.6 ml LVAd ap4: 20.9 cm2 LVAd ap2: 18.1 cm2 LAV(MOD-bp) Indexed: 29.6 ml/m2 LVLd ap4: 7.0 cm LVLd ap2: 7.1 cm LAV(MOD-sp2): 46.9 ml EDV(MOD-sp4): 50.7 ml EDV(MOD-sp2): 38.6 ml LAV(MOD-sp4): 43.3 ml EDV(sp4-el): 52.7 ml EDV(sp2-el): 39.2 ml LVAs ap4: 12.3 cm2 LVAs ap2: 9.9 cm2 LVLs ap4: 6.0 cm LVLs ap2: 5.8 cm ESV(MOD-sp4): 21.8 ml ESV(MOD-sp2): 14.3 ml ESV(sp4-el): 21.5 ml ESV(sp2-el): 14.4 ml EF(MOD-sp4): 57.0 % EF(MOD-sp2): 62.9 % EF(sp4-el): 59.2 % SV(MOD-sp4): 28.9 ml SV(MOD-sp2): 24.3 ml SV(sp4-el): 31.2 ml SI(MOD-sp4): 16.6 ml/m2 SI(MOD-sp2): 13.9 ml/m2 __ LA dimension(2D): 3.1 cm RA A4 area: 10.7 cm2 TAPSE: 2.2 cm Time Measurements MV dec time: 0.21 sec Doppler Measurements & Calculations MV E max flako: 76.8 cm/sec Lat Peak E' Flako: 6.5 cm/sec Med Peak E' Flako: 7.6 cm/sec MV A max flako: 103.0 cm/sec E/E' lat: 11.7 E/E' med: 10.1 MV E/A: 0.74 MV V2 max: 121.3 cm/sec MV P1/2t max flako: 102.9 cm/sec Ao V2 max: 88.6 cm/sec MV max P.9 mmHg MV P1/2t: 64.2 msec Ao max P.1 mmHg MV V2 mean: 66.8 cm/sec Ao V2 mean: 63.8 cm/sec MV mean P.1 mmHg MV dec slope: 469.1 cm/sec2 Ao mean P.8 mmHg MV V2 VTI: 33.2 cm MVA(P1/2t): 3.4 cm2 Ao V2 VTI: 21.0 cm AV (velocity ratio): 1.1 LV V1 max: 88.9 cm/sec PA V2 max: 102.3 cm/sec TR max flako: 215.9 cm/sec LV V1 max P.2 mmHg TR max P.6 mmHg LV V1 mean P.8 mmHg LV V1 mean: 62.8 cm/sec LV V1 VTI: 22.7 cm ECHO/Echo Complete Interpretation Summary Normal LV size. Left ventricular systolic function is normal. The left ventricular ejection fraction is 65 %. Structurally normal valves. Ordering Physician: Marcie Barragan Referring Physician: Guero Khan Performed By: Lay Knox, LUPE, RVT 12/30/2433 Date _ Ricky Bustamante MD CC: Dr. Guero Khan MD; Dr. Marcie Barragan MD ~ Date Dictated: 12/30/2404 Date Transcribed: 12/30/24 0933 Community Affairs Director: Signed [facility] Work Phone: GFR/1.73 sq M.predicted eloy g non-blacks MDRD (S/P/Bld) [Vol rate/Area]Ordered By: Guero Khan on 12-30-2024 Estimated GFR (MDRD) Non-Af Amer 95 >60 [facility] Comment on above: mL/min/1.73m2 CKD-EP I Creatinine Equation (2020) Glomerular filtration rate ( GFR) estimation/1.73 sq m using serum, plasma, or whole bOrdered By: Guero Khan on 12-30-2024 GFR/1.73 sq M.predicted among non-blacks MDRD (S/P/Bld) [Vol rate/Area] 95 mL/min/{1.73_m2} >60 [facility] Comment on above: mL/min/1.73m2 CKD-EP I Creatinine Equation (2020) L503.0106on 12-30-2024 Cobalamin (Vitamin B12) [Mass/Vol] 1037 pg/mL High 180-914 [facility] Comment on above: Performed By: #### L 506.1001, L500.4050, L509.1000, L500.4100, L503.0106, L501.9520 ####[facility] [address] [place], [address] L506.1001on 12-30-2024 Vitamin D 25-OH 52.6 ng/mL Normal 30-100 [facility] Comment on above: Result Comment: Katarina min D Status Deficiency: <20 ng/mL (50nmol/L) Insufficiency: 20-30 ng/mL (50-75 nmol/L) Sufficiency: 30-100 ng/mL (75-250 nmol/L) Toxicity: >100 ng/mL (>250 nmol/L) Performed By: #### L 506.1001, L500.4050, L509.1000, L500.4100, L503.0106, L501.9520 ####[facility] [address] [place], [place], [id number] LDL calc ser/plasOrdered By: Guero Khan on 12-30-2024 Cholesterol in LDL [Mass/Vol] 160 mg/dL [facility] Comment on above: Ekipfixjhz=064-469 m g/dL & Higher Mrqh=372 mg/dL or greater LDL Cholesterol, Calculated 160 mg/dL [facility] Comment on above: Mkgfokfjbf=114-660 m g/dL & Higher Xage=824 mg/dL or greater Laboratory - Chemistry and C hemistry - challengeOrdered By: Guero Khan on 12-30-2024 AST [Catalytic activity/Vol] 19 U/L <32 [facility] Lipid Profileon 12-30-2024 CHOL:HDL 2.99 Normal [facility] Comment on above: Performed By: #### L 506.1001, L500.4050, L509.1000, L500.4100, L503.0106, L501.9520 #### [facility] [address], [place], [id number] Cholesterol [Mass/Vol] 270 mg/dL High <=200 [facility] Comment on above: Result Comment: Chol esterol level, Desirable <200 mg/dL Borderline high cholesterol 200-239 mg/dL High cholesterol >=240 mg/dL Recommendations of the NCEP Adult Treatment Panel for the following risk-cutoff thresholds for the [place] population. Performed By: #### L 506.1001, L500.4050, L509.1000, L500.4100, L503.0106, L501.9520 #### [facility] [address] [place], [place], [id number] Cholesterol in HDL [Mass/Vol] 90 mg/dL Normal [facility] Comment on above: Result Comment: Gissell onal Cholesterol Education Program (NCEP) guidelines: <40 mg/dL: Low HDL-cholesterol (major risk factor for CHD) >= 60 mg/dL: High HDL-cholesterol (negative risk factor for CHD) HDL-cholesterol is affected by a number of factors, e.g. smoking, exercise, hormones, sex and age. Performed By: #### L 506.1001, L500.4050, L509.1000, L500.4100, L503.0106, L501.9520 #### [facility] [address] [place], [address] Cholesterol in LDL [Mass/Vol] 160 mg/dL Normal [facility] Comment on above: Result Comment: Bord wsqqiw=527-165 mg/dL Higher Ukkc=916 mg/dL or greater Performed By: #### L 506.1001, L500.4050, L509.1000, L500.4100, L503.0106, L501.9520 #### [facility] [address] [place], [address] Cholesterol in VLDL [Mass/Vol] 20 mg/dL Normal 5-40 [facility] Comment on above: Performed By: #### L 506.1001, L500.4050, L509.1000, L500.4100, L503.0106, L501.9520 #### [facility] [address] [place], [address] Triglyceride [Mass/Vol] 98 mg/dL Normal [facility] Comment on above: Result Comment: The drugs N-Acetylcysteine and Metamizole may falsely depress this assay. Normal range: <150 mg/dL Borderline High: 150-199 mg/dL High: 200-499 mg/dL Very High: >500 mg/dL Performed By: #### L 506.1001, L500.4050, L509.1000, L500.4100, L503.0106, L501.9520 #### [facility] [address] [place], [address] PTH intactOrdered By: Sam Khan on 12-30-2024 Parathyroid Hormone (Intact) 54 pg/mL [facility] PTHINon 12-30-2024 PTH 54 pg/mL Normal [facility] Comment on above: Performed By: #### L 506.1001, L500.4050, L509.1000, L500.4100, L503.0106, L501.9520 #### [facility] [place], [address] Potassium (Unsp spec) [Mass/ Vol]Ordered By: Guero Khan on 12-30-2024 Potassium [Moles/Vol] 4.5 mmol/L 3.3-5.1 [facility] Potassium measurement (mass/ volume)Ordered By: Guero Khan on 12-30-2024 Potassium (Unsp spec) [Mass/Vol] 4.5 mmol/L 3.3-5.1 [facility] Screening total cholesterol/ high density lipoprotein (HDL) cholesterol ratioOrdered By: Guero Khan on 12-30-2024 Cholesterol.total/Chol esterol in HDL [Mass ratio] 2.99 {ratio} [facility] Serum creatinine measurement (mass/volume)Ordered By: Guero Khan on 12-30-2024 Creatinine [Mass/Vol] 0.64 mg/dL Low 0.70-1.20 [facility] Serum globulin measurementOr dered By: Guero Khan on 12-30-2024 Globulin (S) [Mass/Vol] 2.6 g/dL 2.2-4.2 [facility] Serum glucose measurement (m ass/volume)Ordered By: Guero Khan on 12-30-2024 Glucose [Mass/Vol] 75 mg/dL 70-99 [facility] Serum or plasma alanine miguel otransferase (ALT) measurementOrdered By: Guero Khan on 12-30-2024 ALT [Catalytic activity/Vol] 17 U/L <35 [facility] Serum or plasma albumin vaishali urement (mass/volume)Ordered By: Guero Khan on 12-30-2024 Albumin [Mass/Vol] 4.2 g/dL 3.4-4.8 [facility] Serum or plasma albumin/glob ulin mass ratioOrdered By: Guero Khan on 12-30-2024 Albumin/Globulin [Mass ratio] 1.6 {ratio} 0.9-2.4 [facility] Serum or plasma alkaline jose alfredo sphatase measurementOrdered By: Guero Khan on 12-30-2024 ALP [Catalytic activity/Vol] 49 U/L 35-104 [facility] Serum or plasma calcium vaishali urement (mass/volume)Ordered By: Guero Khan on 12-30-2024 Calcium [Mass/Vol] 9.4 mg/dL 7.6-11.0 [facility] Serum or plasma cholesterol in HDL measurement (mass/volume)Ordered By: Guero Khan on 12-30-2024 Cholesterol in HDL [Mass/Vol] 90 mg/dL >40 [facility] Comment on above: National Cholesterol Education Program (NCEP) guidelines:<40 mg/dL: Low HDL-cholesterol (major risk factor for CHD)>= 60 mg/dL: High HDL-cholesterol (negative risk factor for CHD)HDL-cholesterol is affected by a number of factors, e.g. smoking, exercise, hormones, sex and age. Serum or plasma cholesterol measurement (mass/volume)Ordered By: Guero Khan on 12-30-2024 Cholesterol [Mass/Vol] 270 mg/dL High <201 [facility] Comment on above: Cholesterol level, D esirable <200 mg/dLBorderline high cholesterol 200-239 mg/dLHigh cholesterol >=240 mg/dLRecommendations of the NCEP Adult Treatment Panel for the following risk-cutoff thresholds for the [place] population. Serum or plasma urea nitroge n measurement (mass/volume)Ordered By: Guero Khan on 12-30-2024 Urea nitrogen [Mass/Vol] 14 mg/dL 4-19 [facility] Sodium levelOrdered By: Cheyanne Khan on 12-30-2024 Sodium [Moles/Vol] 142 mmol/L 133-145 [facility] TSH DL <= 0.005 mIU/L QnOrde red By: Guero Khan on 12-30-2024 Thyroid Stimulating Hormone (TSH) 1.550 uIU/mL 0.300-4.200 [facility] TSH Qn 1.550 uIU/mL 0.300-4.200 [facility] Thyroid Stim Hormone (TSH)on 12-30-2024 TSH 1.550 uIU/mL Normal 0.300-4.200 [facility] Comment on above: Performed By: #### L 506.1001, L500.4050, L509.1000, L500.4100, L503.0106, L501.9520 ####[facility] [id number] [place], [address] Total proteinOrdered By: Ira Khan on 12-30-2024 Protein [Mass/Vol] 6.8 g/dL 5.9-8.4 [facility] Triglycerides measurementOrd ered By: Guero Khan on 12-30-2024 Triglyceride [Mass/Vol] 98 mg/dL <199 [facility] Comment on above: The drugs N-Acetylcy steine and Metamizole may falsely depress this assay. Normal range: <150 mg/dLBorderline High: 150-199 mg/dLHigh: 200-499 mg/dLVery High: >500 mg/dL Vitamin B12 ser/plasOrdered By: Guero Khan on 12-30-2024 Cobalamin (Vitamin B12) [Mass/Vol] 1037 pg/mL High 180-914 [facility] Vitamin D, 25-hydroxyOrdered By: Guero Khan on 12-30-2024 Vitamin D 25-Hydroxy 52.6 ng/mL 30-100 [facility] Comment on above: Vitamin D StatusDefi ciency: <20 ng/mL (50nmol/L)Insufficiency: 20-30 ng/mL (50-75 nmol/L)Sufficiency: 30-100 ng/mL (75-250 nmol/L)Toxicity: >100 ng/mL (>250 nmol/L) 12 Lead EKG performed by [facility] on 12-07-2024 12 Lead EKG performed by [facility] [address] [place] [address] 12 Lead EKG performed by [facility] 12/07/24 1355 MR#: [id number] Acct: [id number] Name: MARISSA MARVIN Rep #: [id number] : 1955 69 From: Marcie Barragan MD Attending Dr: Dr. Marcie Barragan MD Status: DE P AMB Ordering Dr: Marcie Barragan MD Date: 12/07/24 Location: [facility] [place] Sex: F C Admitted: BMS/12 Lead EKG performed by [facility] ECG Report Interpretation ------Sinus Rhythm PARAKEET RAISER old Septal MIABNORMAL Electronically signed on 12/07/2024 at 15:[address] Marcie Barragan [employer] Software Version 8610 12/07/24 1547 Date Marcie Barragan MD CC: Dr. Guero Khan MD Date Dictated: 12/07/24 135 Date Transcribed: 12/07/241354 Community Affairs Director: Signed Normal [facility] Cardiology Visit Reporton Cardiology Visit Report [place] [id number] [facility] [place] [address] OFFICE VISIT Date of Service: 12/07/24 MR#: [id number] Acct: [id number] Name: MARISSA MARVIN Rep #: [id number] : 1955 Provider: Dr. Marcie pinto MD Age/Sex: 69/F Location: [facility] [place] [facility] Status: Signed HPI HPI History of Present Illness Details: Patient is a 69-year-old white female that comes in today to establish as a new patient. Patient had remotely been seen in the [place] [facility] [place] back in 2018. The patient has a history of hypertension that has been labile in the past but is well-controlled in the office today at 125/82. She also has a history of mixed hyperlipidemia dyspnea on exertion and near syncope which she feels is probably related to stress and anxiety. Patient has a strong family history of coronary disease she is hyperlipidemic and hypertensive. She is not diabetic and does not smoke. She is history of long distance running. Patient's lipids in January 2024 total cholesterol was 261 HDL was excellent at 79, LDL was 164, and triglycerides were 89. She is intolerant of all statin therapy and Zetia. She has been offered Repatha but she is trying to figure out how to get it paid. The patient also had coronary calcium scoring in February 2021 which was 0. Remote echocardiogram October 2017 showed normal LV size and systolic function EF of 60% there was question of diastolic dysfunction and mild tricuspid insufficiency. Patient reports that she is fairly active in her home environment she denies any syncope or near syncope at this point in time. She denies any chest pains tightness or squeezing. We spent quite a bit of time discussing dietary modifications and other options for trying to control her lipids. Intake Vital Signs 04/30/21 18:04 12/07/24 14:29 Height 5 ft 4 in 5 ft 4 in Weight: 157 lb BMI 26.9 BP 125/82 H Blood Pressure Location Lt brachial Position Sitting Respiration 18 Pulse 71 Pulse Source Monitor Pulse Oximetry (%) 96 Oxygen Delivery Method room air Intake Visit Reasons: HTN (SELF) Neon Sign Worker Required: No Accompanied by: Self Is patient in pain?: No Allergies ciprofloxacin (From Cipro) Allergy (Verified 12/07/24 14:29) rash ezetimibe (From Zetia) Allergy (Verified 12/07/24 14:29) Other Penicillins Allergy (Verified 12/07/24 14:29) hives prochlorperazine (From Compazine) Allergy (Verified 12/07/24 14:29) NEEDS FOLLOW-UP Hocquff-OCK-ReH Reductase Inhibitor Allergy (Verified 12/07/24 14:29) Other Tetracyclines Allergy (Verified 12/07/24 14:29) Rash iodine Adverse Reaction (Severe, Verified 12/07/24 14:29) Unknown alendronate sodium (From Fosamax) Adverse Reaction (Verified 12/07/24 14:29) Other atorvastatin (From Lipitor) Adverse Reaction (Verified 12/07/24 14:29) Diarrhea povidone-iodine (From Betadine) Adverse Reaction (Verified 12/07/24 14:29) Rash Medications ???Medication ???Instructions ???Recorded ???Confirmed ???Type montelukast 10 mg tablet 10 mg PO DAILY 03/23/14 12/07/24 H istory fluticasone propionate 50 50 mcg intranasal BID 09/23/1701/28 History mcg/actuation nasal spray,suspension (Flonase Allergy Relief) calcium carbonate 600 mg PO BID 11/10/24 12/07/24 Hi story cholecalciferol (vitamin D3) 50 50 mcg PO QDAY 11/10/24 12/07/24 H istory mcg (2,000 unit) capsule denosumab 60 mg/mL subcutaneous 60 mg subcut [id number] 11/10/2401/28 History syringe (Prolia) dupilumab 300 mg/2 mL subcutaneous 300 mg subcut Q2W 11/10/2412/07 History pen injector (Dupixent) esomeprazole magnesium 20 mg 20 mg PO QDAY 11/10/24 12/07/24 Hi story capsule,delayed release (Nexium) evolocumab 140 mg/mL subcutaneous 140 mg subcut Q2W 11/10/24 Histo ry pen injector (Repatha SureClick) fluticasone propionate 100 1 inh inhalation DAILY 11/10/24 History mcg/actuation blister powder for inhalation levothyroxine 75 mcg capsule 37.5 mcg PO QDAY 11/10/24 12/07/24 History naproxen sodium 550 mg tablet 550 mg PO Q12H PRN 11/10/24 History omega-3 fatty acids-fish oil 360 1 cap PO QDAY 11/10/24 12/07/24 Hi story mg-1,200 mg capsule (Fish Oil) Have you fallen in the past year?: Yes PFSH Medical History Hypersomnia Dyspnea Hypertension Near syncope Mixed hyperlipidemia GERD (gastroesophageal reflux disease) Asthma Surgical History History of nasal surgery right thumb surgery History of shoulder surgery ( 2009) History of arthroscopy of left knee ( 11/2011) History of carpal tunnel surgery of right wrist ( 2009) Family History ... Normal [facility] Gram Stainon 10-09-2024 GS Positive Normal [facility] Comment on above: Performed By: #### M 100.2500, M100.2000 #### [facility] [address] [place], [address] Nasopharyngeal Cultureon NAC No growth in 48 hours. Normal [facility] Comment on above: Performed By: #### M 100.2500, M100.2000 #### [facility] [address] [place], [address] Gram stainOrdered By: Sam Gant on 10-08-2024 Microscopic observation Gram stain Nom (Unsp spec) [facility] Nasopharyngeal cultureOrdere d By: Guero Gant on 10-08-2024 Nasopharyngeal Culture No growth in 48 hours. [facility] CNOVon 06-20-2024 CNOV Office Visit (UCWSTR) MARISSA MARVIN ([id number]) 1955 F Date Time Provider Department 06/20/24 2:45 PM SILVIA LOPEZ [facility] During your visit today, we recorded the following information about you: Temperature Pulse Respiration Blood pressure 98.4 degrees 70/minute 18/minute 115/84 Weight 72 kg Silvia Lopez APRN.KINESIOTHERAPIST 06/20/2024 3:02 PM Signed Subjective Patient came in with complaints of possible skin infection. Patient says she had a biopsy done on the . Patient said today she woke up and noticed some redness around the area. Patient denies any fever chills nausea vomiting. The history is provided by the patient. No manager language was used. Review of Systems Constitutional: Negative. Skin: Negative. Objective Physical Exam Constitutional: Appearance: Normal appearance. Pulmonary: Effort: Pulmonary effort is normal. Musculoskeletal: Hands: Comments: Red area stevenson where the biopsy was taken. Blue area stevenson where there is redness around it. No drainage noted. Neurological: Mental Status: She is alert. PAST MEDICAL HISTORY Diagnosis Date Basal cell carcinoma 2008 right ear Exercise-induced asthma Fracture of unspecified bones 2006 right distal radius PUD (peptic ulcer disease) PAST SURGICAL HISTORY Procedure Laterality Date ADENOIDECTOMY PRIMARY Adenoidectomy ARTHRP INTERPOS INTERCARPAL/METACARP AL JOINTS Right 09/06/2016 [facility] arthroplasty with LRTI ARTHRS KNE SURG W/MENISCECTOMY MED/LAT W/SHVG Left 04/15/2018 Left knee arthroscopic medial and lateral menisectomies, medial and PF chondroplasties LAPAROSCOPY SURG CHOLECYSTECTOMY 08/04/2012 Cholecystectomy, lap PAST SURGICAL HISTORY OF Left 01/2013 arthroscopic left knee, menisectomy by Dr. Chase PAST SURGICAL HISTORY OF Right open rotator cuff right shoulder PAST SURGICAL HISTORY OF Right carpal tunnel PAST SURGICAL HISTORY OF Bilateral bilateral shoulder scopesd TONSILLECTOMY PRIMARY/SECONDARY Tonsillectomy TOTAL KNEE REPLACEMENT Left 07/2023 ALLERGIES Compazine [Prochlorperazine], Erythromycin, Ciprofloxacin, Iodine, and Penicillins MEDICATIONS denosumab (PROLIA) 60 mg/mL Inject 60 mg subcutaneously one time only. Every 6 months beclomethasone dipropionate (QVAR INHALATION) Inhale as instructed every other day. levothyroxine (SYNTHROID) 75 mcg tablet Take 37 mcg by mouth daily before breakfast. dupilumab (DUPIXENT PEN) 300 mg/2 mL pen Inject subcutaneously every 2 weeks. fluticasone propionate (FLONASE NASAL) Use in the nose. cyanocobalamin, vitamin B-12, (B-12 DOTS ORAL) Take by mouth. esomeprazole (NEXIUM) 20 mg capsule Take 20 mg by mouth DAILY (6 AM). naproxen (NAPROSYN) 500 mg tablet Take 500 mg by mouth twice daily with meals. as needed for pain Palmer-3 Fatty Acids-Vitamin E (FISH OIL) 1,000 mg cap Take 1 capsule by mouth. TRIAMCINOLONE ACETONIDE 55 mcg nasal inhaler once daily. Switch on and off with flonase AMMONIUM LACTATE 12 % LOTION bid at affected areas SINGULAIR 10 MG TAB Take one(1) tablet daily at bedtime. pravastatin (PRAVACHOL) 10 mg tablet Take 10 mg by mouth once daily. (Patient not taking: Reported on 06/20/2024) desloratadine (CLARINEX) 5 mg tablet (Patient not taking: Reported on 06/20/2024) FAMILY HISTORY Problem Relation Age of Onset Cancer Mother colon, DM, breast cancer, heart arrhythmia Diabetes Mother Breast Cancer Mother late 60's Coronary Artery Disease Father CABG x 2 Allergies Father Prostate Cancer Father Cancer Father scc Diabetes Brother Heart Brother Diabetes Brother Hypertension Brother Heart Brother Social History Tobacco Use Smoking status: Never Smokeless tobacco: Never Vaping Use Vaping status: Never Used Substance Use Topics Alcohol use: Yes Alcohol/week: 3.0 standard drinks of alcohol Types: 3 Glasses of Wine (5oz) per week Drug use: No ASSESSMENT/PLAN: 1. Skin infection - ICD9: 686.9, ICD10: L08.9 - CEPHALEXIN 500 MG CAPSULE Patient was educated about proper use of medication and supportive therapies. Patient requested Keflex. Did educate patient on red flag symptoms to watch for and if anything occurs she needs to go to the ER. Patient will call her surgeon tomorrow who did the biopsy and let them know what is going on. Patient was okay with this care plan. Silvia Lopez APRN.KINESIOTHERAPIST Allergies As of Date: 06/20/2024 Noted Allergy Reaction COMPAZINE (PROCHLORPERAZINE) 10/17/2008 5 - Intolerance ERYTHROMYCIN 10/17/2008 11 - Vomiting CIPROFLOXACIN 07/31/2012 2 - Rash IODINE 09/06/2016 2 - Rash Comments: BLISTERY BUBBLY RASH PER PATIENT PENICILLINS 11/27/2005 16 - Unknown Comments: childhood Date Reviewed: 06/20/2024 Reviewed by: Brianna Clark LPN - Fully Assessed Reason for Visit: Derm Problem [33] Cmt: Redness, stinging, warmth x 1 day Primary Visit D (more content not included)... Normal [facility] Sinuses min 3 Viewson 2023 Sinuses min 3 Views [facility] Imaging Services [address] [place] [address] Sinuses min 3 Views MR#: [id number] Acct: [id number] Name: MARISSA MARVIN Rep #: [id number] : 1955 F 69 From: Nanette Recinos MD PCP: Dr. Guero Khan MD Status: REG CLI Study: Sinuses min 3 Views Date of Exam: 04/26/24 Exam# [id number] Ordering Dr: Guero Khan [id number] INDICATION: sinus pain. Chronic EXAMINATION/TECHNIQU E: X-RAY - XR Sinuses Paranasal Min 3 Views COMPARISON: CT dated July 27, 2009 ____ FINDINGS: There is no significant mucosal thickening. There are no air-fluid levels. The regional bones are grossly intact. RAD/Sinuses min 3 Views IMPRESSION: Negative sinus series. Electronically Signed: Nanette Recinos MD at 10:04 EDT , CC: Dr. Guero Khan MD Community Affairs Director: Signed Normal [facility] [employer] BRE[facility] LTD LTon 03-16 [facility] [employer] [facility] [employer] [facility] * * *Final Report* * * DATE OF EXAM: Mar 16 2024 12:00PM WRU 0593 - [employer] BREAST [employer] [facility] / PROCEDURE REASON: Abnormal mammogram * * * * Physician Interpretation * * * * #[id number] - [employer] BREAST [employer] LIMITED ULTRASOUND OF LEFT BREAST: 03/16/2024 HISTORY: Abnormal Mammogram. RESULT: Comparison is made to exams dated: 03/08/2024 mammogram, 03/06/2023 mammogram, and 03/05/2022 mammogram - [facility]. Color flow and real-time ultrasound of the left breast 3 o'clock region were performed. Oconnor scale images of the real-time examination were reviewed. There is a benign normal intramammary lymph node in the left breast at 3 o'clock middle depth 4 cm from the nipple. This normal intramammary lymph node displays fatty hilum. This correlates with mammography findings. Color flow imaging demonstrates that there is internal vascularity. IMPRESSION: BENIGN FINDING There is no sonographic evidence of malignancy. The normal intramammary lymph node in the left breast is benign. A 1 year screening mammogram is recommended. Tanner self/bert:03/16/2024 12:07:16 Sales And Service Officer(s): Bernarda Dozier [facility] Ultrasound BI-RADS: 2 Benign finding Multiple national specialty organizations have released breast cancer screening guidelines for women at average risk for developing breast cancer - guidelines that are based on both evidence and opinion, yet differ on when to start and how often to screen for breast cancer. With representation from Breast Imaging, Internal Medicine, Women's Health, Family Medicine, and Medical/Surgical Oncology, the [facility] has carefully reviewed the data and reached the following consensus: 1) All women should engage in shared decision-making with their providers to decide when to start and how often to screen; 2) All women should have the opportunity to start screening mammography at age 40; 3) For women ages 45-55, we recommend annual screening mammograms; 4) For women ages 55 and over, we support both the transition from an annual to a biennial interval if this aligns more with patient's values and preferences, or continuation with annual screening; 5) All women should discuss with their providers when to stop screening mammograms. Community Affairs Director: Bert Transcribe Date/Time: Mar 16 2024 11:59A Dictated by : TANNER KINCAID MD This examination was interpreted and the report reviewed and electronically signed by: TANNER KINCAID MD on Mar 16 2024 12:07PM EST [id number] Normal [facility] US Breast - left limitedon 0 03-16-2024 IMPRESSION: BENIGN FINDING There is no sonographic evidence of malignancy. The normal intramammary lymph node in the left breast is benign. A 1 year screening mammogram is recommended. Tanner self/bert:03/16/2024 12:07:16 Sales And Service Officer(s): Bernarda Dozier [facility] Ultrasound BI-RADS: 2 Benign finding Multiple national specialty organizations have released breast cancer screening guidelines for women at average risk for developing breast cancer - guidelines that are based on both evidence and opinion, yet differ on when to start and how often to screen for breast cancer. With representation from Breast Imaging, Internal Medicine, Women's Health, Family Medicine, and Medical/Surgical Oncology, the [facility] has carefully reviewed the data and reached the following consensus: 1) All women should engage in shared decision-making with their providers to decide when to start and how often to screen; 2) All women should have the opportunity to start screening mammography at age 40; 3) For women ages 45-55, we recommend annual screening mammograms; 4) For women ages 55 and over, we support both the transition from an annual to a biennial interval if this aligns more with patient's values and preferences, or continuation with annual screening; 5) All women should discuss with their providers when to stop screening mammograms. Community Affairs Director: Bert Transcribe Date/Time: Mar 16 2024 11:59A Dictated by : TANNER KINCAID MD This examination was interpreted and the report reviewed and electronically signed by: TANNER KINCAID MD on Mar 16 2024 12:07PM [facility] DIVISION OF RADIOLOGY * * *Final Report* * * DATE OF EXAM: Mar 16 2024 12:00PM U 0593 - [employer] BREAST [employer] LT / PROCEDURE REASON: Abnormal mammogram * * * * Physician Interpretation * * * * #[id number] - [facility] [employer] BREAST [facility]TD LT LIMITED ULTRASOUND OF LEFT BREAST: 03/16/2024 HISTORY: Abnormal Mammogram. RESULT: Comparison is made to exams dated: 03/08/2024 mammogram, 03/06/2023 mammogram, and 03/05/2022 mammogram - [facility]. Color flow and real-time ultrasound of the left breast 3 o'clock region were performed. Oconnor scale images of the real-time examination were reviewed. There is a benign normal intramammary lymph node in the left breast at 3 o'clock middle depth 4 cm from the nipple. This normal intramammary lymph node displays fatty hilum. This correlates with mammography findings. Color flow imaging demonstrates that there is internal vascularity. DIVISION OF RADIOLOGY Provider, [facility] [place] - 03/16/2024 * * *Final Report* * * DATE OF EXAM: Mar 16 2024 12:00PM U 0593 - [employer] BREAST [employer] / PROCEDURE REASON: Abnormal mammogram * * * * Physician Interpretation * * * * #[id number] - [facility] [employer] [facility] LT LIMITED ULTRASOUND OF LEFT BREAST: 03/16/2024 HISTORY: Abnormal Mammogram. RESULT: Comparison is made to exams dated: 03/08/2024 mammogram, 03/06/2023 mammogram, and 03/05/2022 mammogram - [facility]. Color flow and real-time ultrasound of the left breast 3 o'clock region were performed. Oconnor scale images of the real-time examination were reviewed. There is a benign normal intramammary lymph node in the left breast at 3 o'clock middle depth 4 cm from the nipple. This normal intramammary lymph node displays fatty hilum. This correlates with mammography findings. Color flow imaging demonstrates that there is internal vascularity. IMPRESSION IMPRESSION: BENIGN FINDING There is no sonographic evidence of malignancy. The normal intramammary lymph node in the left breast is benign. A 1 year screening mammogram is recommended. Tanner self/bert:03/16/2024 12:07:16 Sales And Service Officer(s): Bernarda Dozier [facility] Ultrasound BI-RADS: 2 Benign finding Multiple national specialty organizations have released breast cancer screening guidelines for women at average risk for developing breast cancer - guidelines that are based on both evidence and opinion, yet differ on when to start and how often to screen for breast cancer. With representation from Breast Imaging, Internal Medicine, Women's Health, Family Medicine, and Medical/Surgical Oncology, the [facility] has carefully reviewed the data and reached the following consensus: 1) All women should engage in shared decision-making with their providers to decide when to start and how often to screen; 2) All women should have the opportunity to start screening mammography at age 40; 3) For women ages 45-55, we recommend annual screening mammograms; 4) For women ages 55 and over, we support both the transition from an annual to a biennial interval if this aligns more with patient's values and preferences, or continuation with annual screening; 5) All women should discuss with their providers when to stop screening mammograms. Community Affairs Director: Bert Transcribe Date/Time: Mar 16 2024 11:59A Dictated by : TANNER KINCAID MD This examination was interpreted and the report reviewed and electronically signed by: TANNER KINCAID MD on Mar 16 2024 12:07PM EST [facility] Radiology Study observation (narrative) [facility] US Breast - left limitedOrde red By: [facility] Provider on 03-16-2024 [facility] 03-09-2024 [facility] HNO ID: [id number] Author: COORDINATOR, MAMMOGRAPHY, ? Service: ? Author Type: Physician Type: Letter Filed: 03/09/2024 16:59 Note Text: March 09, 2024 PID: [id number] Marissa Marvin [address] [place] [address] Dear Ms. Mavrin, Your recent breast imaging exam on 03/08/2024 showed a possible finding that requires additional imaging studies for a complete evaluation. Most such findings are probably benign (not cancer). Your mammogram demonstrates that you have dense breast tissue, which could hide abnormalities. Dense breast tissue, in and of itself, is a relatively common condition. Therefore, this information is not provided to cause undue concern; rather, it is to raise your awareness and promote discussion with your health care provider regarding the presence of dense breast tissue in addition to other risk factors. If you have a healthcare provider who ordered/prescribed your screening mammogram: Please call [phone] or [phone]: [phone] to schedule an appointment for your additional imaging (if you have not already done so). If you DO NOT have a healthcare provider (ie you did not have an order/prescription for your screening mammogram): Please call to schedule an appointment for your additional imaging (if you have not already done so). You must have an order/prescription from your physician when calling to schedule your appointment. If your order/prescription is not electronic, you must bring the hard copy with you on the day of your exam to avoid delays. Your imaging studies and reports are kept on file at [facility] as part of your permanent medical record, and are available for your continuing care. Thank you for allowing us to help in meeting your health care needs. Sincerely, Dr. Meza Interpreting Radiologist [facility] (Additional imaging) Normal [facility] CHET SCREENING W TOMOon 03-08 CHET SCREENING W KHAI * * *Final Report* * * DATE OF EXAM: Mar 08 2024 8:31AM WRW [id number] - CHET SCREENING W KHAI / PROCEDURE REASON: multiple diagnoses * * * * Physician Interpretation * * * * RESULT: #[id number] - [facility] SCREENING W KHAI BILATERAL DIGITAL SCREENING MAMMOGRAM TOMOSYNTHESIS WITH CAD: 03/08/2024 HISTORY: Screening Mammogram - patient reports the following symptoms: /priors available for comparison pt stated lt sided chest wall pain in december for couple of wks went to dr and stated to wait for screening 3D no pain now no lumps nki no redness or discharge Multiple Diagnoses. RESULT: TECHNIQUE: The study was acquired using full field digital technology and interpreted from soft copy. Digital Breast Tomosynthesis (DBT) images were obtained and used to assist in the interpretation of this examination. Current study was also evaluated with a Computer Aided Detection (CAD). Comparison is made to exams dated: 03/06/2023 mammogram, 03/05/2022 mammogram, and 02/28/2021 mammogram - [facility]. The breasts are heterogeneously dense, which may obscure small masses. There is a possible asymmetry in the left breast at 1 o'clock middle depth. Finding is best noted on tomographic CC slice 13 and MLO slice 15. No other significant masses, calcifications, or other findings are seen in either breast. IMPRESSION: INCOMPLETE: NEEDS ADDITIONAL IMAGING EVALUATION The possible asymmetry in the left breast is indeterminate. An ultrasound is recommended. William león/penrad:03/09/2024 16:59:36 Sales And Service Officer(s): RT Nasreen(R)(M), [facility] letter sent: Additional Imaging Needed Mammogram BI-RADS: 0 Incomplete: needs additional imaging evaluation If this report indicates you need additional imaging, and it has NOT yet been performed, please call , to schedule. We sincerely thank you for choosing the [facility] for your breast imaging needs. Multiple national specialty organizations have released breast cancer screening guidelines for women at average risk for developing breast cancer - guidelines that are based on both evidence and opinion, yet differ on when to start and how often to screen for breast cancer. With representation from Breast Imaging, Internal Medicine, Women's Health, Family Medicine, and Medical/Surgical Oncology, the [facility] has carefully reviewed the data and reached the following consensus: 1) All women should engage in shared decision-making with their providers to decide when to start and how often to screen; 2) All women should have the opportunity to start screening mammography at age 40; 3) For women ages 45-55, we recommend annual screening mammograms; 4) For women ages 55 and over, we support both the transition from an annual to a biennial interval if this aligns more with patient's values and preferences, or continuation with annual screening; 5) All women should discuss with their providers when to stop screening mammograms. Community Affairs Director: Bert Transcribe Date/Time: Mar 08 2024 7:50A Dictated by: WILLIAM MEZA MD This examination was interpreted and the report reviewed and electronically signed by: WILLIAM MEZA MD on Mar 09 2024 4:59PM EST [id number] CN Normal [facility] CNOVon 01-19-2024 CNOV Office Visit (OBGYWM) MARISSA MARVIN ([id number]) 1955 F Date Time Provider Department 01/19/24 9:20 AM MILTON LUJAN OBGYWM During your visit today, we recorded the following information about you: Blood pressure Weight 110/68 70.3 kg Milton Lujan MD 01/19/2024 11:45 AM Signed Marissa Danielhetal is a 68 year old female who presents for problem visit for c/o pain left side of chest wall near outer breast margin. Noted it about a week ago, felt some discocomfort and felt under axilla and noted a small nodule. It was not mobile and it was tender. [place] like it was more on the chest wall and maybe a little bit at the edge of the breast itself. Today she notes that the pain is gone and there is no longer a lump there but she went to come in for a breast exam. She denies any trauma to the area. No nipple discharge.. HPI: 68 YOF presents OB History T0 L0 SAB0 IAB0 Ectopic0 Multiple0 Live Births0 Comment: Age at menarche 13. Menopause 43. LMP 1998 Freezer Assistant History LMP: Postmenopausal Age at Menarche: Age at First : Age at Menopause: Freezer Assistant History Comments: Sexual Activity: Yes; Male; vasectomy Contraception: Vasectomy PAST MEDICAL HISTORY Diagnosis Date Basal cell carcinoma 2009 right ear Exercise-induced asthma Fracture of unspecified bones 2006 right distal radius PUD (peptic ulcer disease) PAST SURGICAL HISTORY Procedure Laterality Date ADENOIDECTOMY PRIMARY Adenoidectomy ARTHRP INTERPOS INTERCARPAL/METACARP AL JOINTS Right 09/06/2016 [facility] arthroplasty with LRTI ARTHRS KNE SURG W/MENISCECTOMY MED/LAT W/SHVG Left 04/15/2018 Left knee arthroscopic medial and lateral menisectomies, medial and PF chondroplasties LAPAROSCOPY SURG CHOLECYSTECTOMY 08/04/2012 Cholecystectomy, lap PAST SURGICAL HISTORY OF Left 01/2013 arthroscopic left knee, menisectomy by Dr. Chase PAST SURGICAL HISTORY OF Right open rotator cuff right shoulder PAST SURGICAL HISTORY OF Right carpal tunnel PAST SURGICAL HISTORY OF Bilateral bilateral shoulder scopesd TONSILLECTOMY PRIMARY/SECONDARY Tonsillectomy TOTAL KNEE REPLACEMENT Left 07/2023 FAMILY HISTORY Problem Relation Age of Onset Cancer Mother colon, DM, breast cancer, heart arrhythmia Diabetes Mother Breast Cancer Mother late 60's Coronary Artery Disease Father CABG x 2 Allergies Father Prostate Cancer Father Cancer Father scc Diabetes Brother Heart Brother Diabetes Brother Hypertension Brother Heart Brother Social History Tobacco Use Smoking status: Never Smokeless tobacco: Never Vaping Use Vaping Use: Never used Substance Use Topics Alcohol use: Yes Alcohol/week: 3.0 standard drinks of alcohol Types: 3 Glasses of Wine (5oz) per week Drug use: No Current Outpatient Medications Medication Sig pravastatin (PRAVACHOL) 10 mg tablet Take 10 mg by mouth once daily. beclomethasone dipropionate (QVAR INHALATION) Inhale as instructed every other day. levothyroxine 25 mcg cap Take 25 mcg by mouth daily before breakfast. dupilumab (DUPIXENT PEN) 300 mg/2 mL pen Inject subcutaneously every 2 weeks. desloratadine (CLARINEX) 5 mg tablet fluticasone propionate (FLONASE NASAL) Use in the nose. cyanocobalamin, vitamin B-12, (B-12 DOTS ORAL) Take by mouth. esomeprazole (NEXIUM) 20 mg capsule Take 20 mg by mouth DAILY (6 AM). naproxen (NAPROSYN) 500 mg tablet Take 500 mg by mouth twice daily with meals. as needed for pain Palmer-3 Fatty Acids-Vitamin E (FISH OIL) 1,000 mg cap Take 1 capsule by mouth. TRIAMCINOLONE ACETONIDE 55 mcg nasal inhaler once daily. Switch on and off with flonase AMMONIUM LACTATE 12 % LOTION bid at affected areas SINGULAIR 10 MG TAB Take one(1) tablet daily at bedtime. No current facility-administere d medications for this visit. Allergies As of Date: 01/19/2024 Allergen Noted Reaction COMPAZINE [PROCHLORPERAZINE] 10/17/2008 Intolerance ERYTHROMYCIN 10/17/2008 Vomiting CIPROFLOXACIN 07/31/2012 Rash IODINE 09/06/2016 Rash PENICILLINS 11/27/2005 Unknown Fully Assessed 01/19/2024 Allergies and current medication updated:Yes EXAM: BP 110/68 Wt 155 lb (70.3kg) GENERAL: pleasant, female in no apparent distress BREAST: soft, non-tender, symmetric, no dominant mass, normal nipple-areolar complex, no lymphadenopathy, no nipple discharge, and there expection of the chest wall and breast edge in the area of concern under the left axilla do not reveal any nodules or concerns. Symmetrical to the right side. C ASSESSMENT AND PLAN: Chest wall nodule and pain, now resolved. Discussed with the patient may have been a lymph node or small infected skin gland. At this point keep routine mammogram appointment in March as would be normally recommended. However if any recurrent issues please notify the office and we be happy to work h (more content not included)... Normal [facility] [place] Basophil percentageOrdered B y: Guero Khan on 01-14-2024 Chloride [Moles/Vol] 107 mmol/L 98-107 [facility] Cholesterol [Mass/Vol] 261 mg/dL <200 [facility] Comment on above: <200 mg/dL Desirable 200-240 mg/dL Borderline >240 mg/dL High Risk Glucose [Mass/Vol] 97 mg/dL 74-106 [facility] Potassium [Moles/Vol] 4.3 mmol/L 3.5-5.1 [facility] Sodium [Moles/Vol] 139 mmol/L 136-145 [facility] Triglyceride [Mass/Vol] 89 mg/dL <199 [facility] Comment on above: The drugs N-Acetylcy steine and Metamizole may falsely depress this assay.Serum Triglycerides Reference Interval Normal <150 mg/dL Borderline high 150 - 199 mg/dL High 200 - 499 mg/dL Very High > or = 500 mg/dL Laboratory - Chemistry and C hemistry - challengeOrdered By: Guero Khan on 01-14-2024 Cholesterol in HDL [Mass/Vol] 79 mg/dL >40 [facility] Comment on above: The drugs N-Acetylcy steine and Metamizole may falsely depress this assay. Reference Range HDL <40 mg/dL Low HDL Cholesterol HDL >or= 60 mg/dL High HDL Cholesterol Cholesterol in LDL [Mass/Vol] 164 mg/dL 0-130 [facility] CO2 [Moles/Vol] 27.0 mmol/L 21.0-32.0 [facility] Cobalamin (Vitamin B12) [Mass/Vol] 403 pg/mL 211-911 [facility] Urea nitrogen/Creatinine [Mass ratio] 37.8 mg/mg 10-20 [facility] No Panel InformationOrdered By: Guero Khan on 01-14-2024 Estimated GFR (MDRD) Amer 125 mL/min >60 [facility] Comment on above: GFR Calc Estimated GFR (MDRD) Non-Af Amer 104 mL/min >60 [facility] Comment on above: Non- GFR Calc Parathyroid Hormone (Intact) 57.5 pg/mL 18.4-80.1 [facility] Vitamin D 25-Hydroxy 54.2 ng/mL [facility] Comment on above: Vitamin D 25(OH) Sta tus Range Deficiency <20 ng/mL (50nmol/L) Insufficiency 20 - 30 ng/mL (50 - 75 nmol/L) Sufficiency 30 - 100 ng/mL (75 - 250 nmol/L) Toxicity >100 ng/mL (>250 nmol/L) VLDL Cholesterol 18 mg/dL 5-40 [facility] Serum or plasma calcium vaishali urement (mass/volume)Ordered By: Guero Khan on 01-14-2024 Calcium [Mass/Vol] 9.4 mg/dL 8.5-10.1 [facility] Serum or plasma creatinine m easurement (mass/volume)Ordered By: Guero Khan on 01-14-2024 Creatinine [Mass/Vol] 0.61 mg/dL 0.55-1.02 [facility] Comment on above: The validity of the calculated GFR & GFRAA in patients over 70 years has not been determined. Clinical correlation is essential. Serum or plasma thyroid stim ulating hormone (TSH) measurement (units/volume)Ordered By: Guero Khan on 01-14-2024 TSH Qn 1.47 uIU/mL 0.358-3.74 [facility] Serum or plasma urea nitroge n measurement (mass/volume)Ordered By: Guero Khan on 01-14-2024 Urea nitrogen [Mass/Vol] 23 mg/dL 7-18 [facility] Thin prep Papanicolaou smear with manual screeningOrdered By: [facility] Illdisha Khan on 01-14-2024 Thin prep Papanicolaou smear with manual screening 5 5-15 [facility] Thin prep Papanicolaou smear with manual screening 0.98 ng/dL 0.76-1.46 [facility] .GFRon 07-31-2023 GFR 110 ml/min/1.73sqm Normal [facility] ([place]) Comment on above: Result Comment: GFR Population mean for , Non- Americans Ages 20-29 = 116 mL/min/1.73 sq.m. Ages 30-39 = 107 mL/min/1.73 sq.m. Ages 40-49 = 99 mL/min/1.73 sq.m. Ages 50-59 = 93 mL/min/1.73 sq.m. Ages 60-69 = 85 mL/min/1.73 sq.m. Ages 70+ = 75 mL/min/1.73 sq.m. Chronic Kidney Disease: Less than 60 mL/min/1.73 square meters End Stage Renal Disease: Less than 15 mL/min/1.73 square meters Performed By: #### G FR, BMP #### Sun [address] [address] GFR Non- 90 ml/min/1.73sqm Normal [facility] ([place]) Comment on above: Result Comment: GFR Population mean for , Non- Americans Ages 20-29 = 116 mL/min/1.73 sq.m. Ages 30-39 = 107 mL/min/1.73 sq.m. Ages 40-49 = 99 mL/min/1.73 sq.m. Ages 50-59 = 93 mL/min/1.73 sq.m. Ages 60-69 = 85 mL/min/1.73 sq.m. Ages 70+ = 75 mL/min/1.73 sq.m. Chronic Kidney Disease: Less than 60 mL/min/1.73 square meters End Stage Renal Disease: Less than 15 mL/min/1.73 square meters Performed By: #### G , BMP #### [address] [address] BMPon 07-31-2023 BUN/Creatinine Ratio 15 ratio Normal 7-27 [facility] ([place]) Comment on above: Performed By: #### Gurvinder MORE, BMP #### [address] [address] Calcium [Mass/Vol] 8.3 mg/dL Low 8.4-10.2 [facility] ([place]) Comment on above: Performed By: #### Gurvinder MORE, BMP #### [address] [address] Chloride [Moles/Vol] 105 mmol/L Normal 98-107 [facility] ([place]) Comment on above: Performed By: #### G , BMP #### [address] [address] CO2 [Moles/Vol] 25 mmol/L Normal 23-31 [facility] ([place]) Comment on above: Performed By: #### G , BMP #### [address] [address] Creatinine [Mass/Vol] 0.65 mg/dL Normal 0.55-1.02 [facility] ([place]) Comment on above: Performed By: #### G , BMP #### [address] [address] Electrolyte Balance 11.0 mEq/L Normal 4.0-15.0 [facility] ([place]) Comment on above: Performed By: #### G FR, BMP #### [address] [place], [place] [address] Glucose [Mass/Vol] 116 mg/dL High 80-115 [facility] ([place]) Comment on above: Performed By: #### G FR, BMP #### [address] [place], [place] [address] Potassium [Moles/Vol] 3.9 mmol/L Normal 3.5-5.1 [facility] ([place]) Comment on above: Performed By: #### G , BMP #### [address] [place], [place] [address] Sodium [Moles/Vol] 141 mmol/L Normal 136-145 [facility] ([place]) Comment on above: Performed By: #### G , BMP #### [address] [place], [place] [address] Urea nitrogen [Mass/Vol] 10 mg/dL Normal 7-18 [facility] ([place]) Comment on above: Performed By: #### G , BMP #### [address] [address] LABORATORYOrdered By: SYSTEM SYSTEM on 07-31-2023 Calcium [Mass/Vol] 8.3 mg/dL Invalid Interpretation Code 8.4 - 10.2 mg/dL AO ADM SS Chloride [Moles/Vol] 105 mmol/L Invalid Interpretation Code 98 - 107 mmol/L AO ADM SS CO2 [Moles/Vol] 25 mmol/L Invalid Interpretation Code 23 - 31 mmol/L AO ADM SS Creatinine [Mass/Vol] 0.65 mg/dL Invalid Interpretation Code 0.55 - 1.02 mg/dL AO ADM SS Electrolyte Balance 11.0 mEq/L Invalid Interpretation Code 4.0 - 15.0 mEq/L AO ADM SS GFR/1.73 sq M.predicted among blacks MDRD (S/P/Bld) [Vol rate/Area] 110 ml/min/1.73sqm Invalid Interpretation Code AO Chemistry S Comment on above: Interpretive Data: GFR Population mean for , Non- Americans Ages 20-29 = 116 mL/min/1.73 sq.m. Ages 30-39 = 107 mL/min/1.73 sq.m. Ages 40-49 = 99 mL/min/1.73 sq.m. Ages 50-59 = 93 mL/min/1.73 sq.m. Ages 60-69 = 85 mL/min/1.73 sq.m. Ages 70+ = 75 mL/min/1.73 sq.m. Chronic Kidney Disease: Less than 60 mL/min/1.73 square meters End Stage Renal Disease: Less than 15 mL/min/1.73 square meters GFR/1.73 sq M.predicted among non-blacks MDRD (S/P/Bld) [Vol rate/Area] 90 ml/min/1.73sqm Invalid Interpretation Code AO Chemistry S Comment on above: Interpretive Data: GFR Population mean for , Non- Americans Ages 20-29 = 116 mL/min/1.73 sq.m. Ages 30-39 = 107 mL/min/1.73 sq.m. Ages 40-49 = 99 mL/min/1.73 sq.m. Ages 50-59 = 93 mL/min/1.73 sq.m. Ages 60-69 = 85 mL/min/1.73 sq.m. Ages 70+ = 75 mL/min/1.73 sq.m. Chronic Kidney Disease: Less than 60 mL/min/1.73 square meters End Stage Renal Disease: Less than 15 mL/min/1.73 square meters Glucose [Mass/Vol] 116 mg/dL Invalid Interpretation Code 80 - 115 mg/dL AO ADM SS Potassium [Moles/Vol] 3.9 mmol/L Invalid Interpretation Code 3.5 - 5.1 mmol/L AO ADM SS Sodium [Moles/Vol] 141 mmol/L Invalid Interpretation Code 136 - 145 mmol/L AO ADM SS Urea nitrogen [Mass/Vol] 10 mg/dL Invalid Interpretation Code 7 - 18 mg/dL AO ADM SS Urea nitrogen/Creatinine [Mass ratio] 15 ratio Invalid Interpretation Code 7 - 27 ratio AO ADM SS .Auto Diffon 07-30-2023 Basophil, Absolute 0.0 10 3/mcL Normal 0.0-0.2 [facility] ([place]) Comment on above: Performed By: #### C FATMATA, LINDEN, KATHY, GFR, ANEU #### [address] [address] Basophils/100 WBC (Bld) 0.1 % Normal 0.0-2.5 [facility] ([place]) Comment on above: Performed By: #### C BC, ADIFF, BMP, GFR, ANEU #### [address] [address] Eosinophil, Absolute 0.0 10 3/mcL Normal 0.0-0.4 [facility] ([place]) Comment on above: Performed By: #### C BC, ADIFF, BMP, GFR, ANEU #### [address] [address] Eosinophils/100 WBC (Bld) 0.0 % Normal 0.0-7.0 [facility] ([place]) Comment on above: Performed By: #### C BC, ADIFF, BMP, GFR, ANEU #### [address] [address] Lymphocyte, Absolute 0.9 10 3/mcL Normal 0.8-3.9 [facility] ([place]) Comment on above: Performed By: #### C BC, ADIFF, BMP, GFR, ANEU #### [address] [address] Lymphocytes/100 WBC (Bld) 7.3 % Low 10.0-50.0 [facility] ([place]) Comment on above: Performed By: #### C BC, ADIFF, BMP, GFR, ANEU #### [address] [address] Monocyte, Absolute 0.5 10 3/mcL Normal 0.2-1.0 [facility] ([place]) Comment on above: Performed By: #### C BC, ADIFF, BMP, GFR, ANEU #### [address] [address] Monocytes/100 WBC (Bld) 4.2 % Normal 1.7-13.0 [facility] ([place]) Comment on above: Performed By: #### C BC, ADIFF, BMP, GFR, ANEU #### [address] [address] Neutrophils/100 WBC (Bld) 88.4 % High 37.0-80.0 [facility] ([place]) Comment on above: Performed By: #### C BC, ADIFF, BMP, GFR, ANEU #### [id number] [place], [place] [address] .GFRon 07-30-2023 GFR 139 ml/min/1.73sqm Normal [facility] ([place]) Comment on above: Result Comment: GFR Population mean for , Non- Americans Ages 20-29 = 116 mL/min/1.73 sq.m. Ages 30-39 = 107 mL/min/1.73 sq.m. Ages 40-49 = 99 mL/min/1.73 sq.m. Ages 50-59 = 93 mL/min/1.73 sq.m. Ages 60-69 = 85 mL/min/1.73 sq.m. Ages 70+ = 75 mL/min/1.73 sq.m. Chronic Kidney Disease: Less than 60 mL/min/1.73 square meters End Stage Renal Disease: Less than 15 mL/min/1.73 square meters Performed By: #### C BC, ADIFF, BMP, GFR, ANEU #### Sun [address] [address] GFR Non- 114 ml/min/1.73sqm Normal [facility] ([place]) Comment on above: Result Comment: GFR Population mean for , Non- Americans Ages 20-29 = 116 mL/min/1.73 sq.m. Ages 30-39 = 107 mL/min/1.73 sq.m. Ages 40-49 = 99 mL/min/1.73 sq.m. Ages 50-59 = 93 mL/min/1.73 sq.m. Ages 60-69 = 85 mL/min/1.73 sq.m. Ages 70+ = 75 mL/min/1.73 sq.m. Chronic Kidney Disease: Less than 60 mL/min/1.73 square meters End Stage Renal Disease: Less than 15 mL/min/1.73 square meters Performed By: #### C BC, ADIFF, BMP, GFR, ANEU #### [address] [address] .NEUABSon 07-30-2023 Neutrophil, Absolute 11.1 10 3/mcL High 2.9-6.2 A [facility] ([place]) Comment on above: Performed By: #### C BC, ADIFF, BMP, GFR, ANEU #### [address] [address] BMPon 07-30-2023 BUN/Creatinine Ratio 25 ratio Normal 7-27 [facility] ([place]) Comment on above: Performed By: #### C BC, ADIFF, BMP, GFR, ANEU #### [address] [address] Calcium [Mass/Vol] 8.2 mg/dL Low 8.4-10.2 [facility] ([place]) Comment on above: Performed By: #### C BC, ADIFF, BMP, GFR, ANEU #### [address] [address] Chloride [Moles/Vol] 104 mmol/L Normal 98-107 [facility] ([place]) Comment on above: Performed By: #### C BC, ADIFF, BMP, GFR, ANEU #### [address] [address] CO2 [Moles/Vol] 25 mmol/L Normal 23-31 [facility] ([place]) Comment on above: Performed By: #### C BC, ADIFF, BMP, GFR, ANEU #### [address] [address] Creatinine [Mass/Vol] 0.53 mg/dL Low 0.55-1.02 [facility] ([place]) Comment on above: Performed By: #### C BC, ADIFF, BMP, GFR, ANEU #### [address] [address] Electrolyte Balance 8.0 mEq/L Normal 4.0-15.0 [facility] ([place]) Comment on above: Performed By: #### C BC, ADIFF, BMP, GFR, ANEU #### [address] [address] Glucose [Mass/Vol] 123 mg/dL High 80-115 [facility] ([place]) Comment on above: Performed By: #### C BC, ADIFF, BMP, GFR, ANEU #### [address] [address] Potassium [Moles/Vol] 5.2 mmol/L High 3.5-5.1 [facility] ([place]) Comment on above: Performed By: #### C BC, ADIFF, BMP, GFR, ANEU #### [address] [address] Sodium [Moles/Vol] 137 mmol/L Normal 136-145 [facility] ([place]) Comment on above: Performed By: #### C BC, ADIFF, BMP, GFR, ANEU #### [address] [address] Urea nitrogen [Mass/Vol] 13 mg/dL Normal 7-18 [facility] ([place]) Comment on above: Performed By: #### C BC, ADIFF, BMP, GFR, ANEU #### [address] [address] CBCon 07-30-2023 Erythrocyte distribution width (RBC) [Ratio] 13.1 % Normal 11.5-14.5 [facility] ([place]) Comment on above: Performed By: #### C BC, ADIFF, BMP, GFR, ANEU #### [address] [address] Hematocrit (Bld) [Volume fraction] 37.6 % Normal 37.0-47.0 [facility] ([place]) Comment on above: Performed By: #### C BC, ADIFF, BMP, GFR, ANEU #### [address] [address] Hgb 12.4 G/dL Normal 12.0-16.0 [facility] ([place]) Comment on above: Performed By: #### C BC, ADIFF, BMP, GFR, ANEU #### [address] [address] MCH (RBC) [Entitic mass] 29.5 pg Normal 27.0-31.2 [facility] ([place]) Comment on above: Performed By: #### C BC, ADIFF, BMP, GFR, ANEU #### [address] [address] MCHC 33.0 G/dL Normal 33.0-37.0 [facility] ([place]) Comment on above: Performed By: #### C BC, ADIFF, BMP, GFR, ANEU #### [address] [address] MCV (RBC) [Entitic vol] 89.4 fL Normal 80.0-94.0 [facility] ([place]) Comment on above: Performed By: #### C BC, ADIFF, BMP, GFR, ANEU #### [address] [address] Platelet 255 10 3/mcL Normal 130-400 [facility] ([place]) Comment on above: Performed By: #### C BC, ADIFF, BMP, GFR, ANEU #### [address] Platelet mean volume (Bld) [Entitic vol] 8.3 fL Normal 7.4-10.4 [facility] ([place]) Comment on above: Performed By: #### C BC, ADIFF, BMP, GFR, ANEU #### [address] [address] RBC 4.21 10 6/mcL Normal 4.20-5.40 [facility] ([place]) Comment on above: Performed By: #### C BC, ADIFF, BMP, GFR, ANEU #### [address] [address] WBC 12.6 10 3/mcL High 4.6-10.8 [facility] ([place]) Comment on above: Performed By: #### C BC, ADIFF, BMP, GFR, ANEU #### [address] [address] LABORATORYOrdered By: SYSTEM SYSTEM on 07-30-2023 Basophil, Absolute 0.0 103/mcL Invalid Interpretation Code 0.0 - 0.2 10^3/mcL AO Workflow SS Basophils/100 WBC (Bld) 0.1 % Invalid Interpretation Code 0.0 - 2.5 % AO Workflow SS Calcium [Mass/Vol] 8.2 mg/dL Invalid Interpretation Code 8.4 - 10.2 mg/dL AO ADM SS Chloride [Moles/Vol] 104 mmol/L Invalid Interpretation Code 98 - 107 mmol/L AO ADM SS CO2 [Moles/Vol] 25 mmol/L Invalid Interpretation Code 23 - 31 mmol/L AO ADM SS Creatinine [Mass/Vol] 0.53 mg/dL Invalid Interpretation Code 0.55 - 1.02 mg/dL AO ADM SS Electrolyte Balance 8.0 mEq/L Invalid Interpretation Code 4.0 - 15.0 mEq/L AO ADM SS Eosinophil, Absolute 0.0 103/mcL Invalid Interpretation Code 0.0 - 0.4 10^3/mcL AO Workflow SS Eosinophils/100 WBC (Bld) 0.0 % Invalid Interpretation Code 0.0 - 7.0 % AO Workflow SS Erythrocyte distribution width (RBC) [Ratio] 13.1 % Invalid Interpretation Code 11.5 - 14.5 % AO Workflow SS GFR/1.73 sq M.predicted among blacks MDRD (S/P/Bld) [Vol rate/Area] 139 ml/min/1.73sqm Invalid Interpretation Code AO Chemistry S Comment on above: Interpretive Data: GFR Population mean for , Non- Americans Ages 20-29 = 116 mL/min/1.73 sq.m. Ages 30-39 = 107 mL/min/1.73 sq.m. Ages 40-49 = 99 mL/min/1.73 sq.m. Ages 50-59 = 93 mL/min/1.73 sq.m. Ages 60-69 = 85 mL/min/1.73 sq.m. Ages 70+ = 75 mL/min/1.73 sq.m. Chronic Kidney Disease: Less than 60 mL/min/1.73 square meters End Stage Renal Disease: Less than 15 mL/min/1.73 square meters GFR/1.73 sq M.predicted among non-blacks MDRD (S/P/Bld) [Vol rate/Area] 114 ml/min/1.73sqm Invalid Interpretation Code AO Chemistry S Comment on above: Interpretive Data: GFR Population mean for , Non- Americans Ages 20-29 = 116 mL/min/1.73 sq.m. Ages 30-39 = 107 mL/min/1.73 sq.m. Ages 40-49 = 99 mL/min/1.73 sq.m. Ages 50-59 = 93 mL/min/1.73 sq.m. Ages 60-69 = 85 mL/min/1.73 sq.m. Ages 70+ = 75 mL/min/1.73 sq.m. Chronic Kidney Disease: Less than 60 mL/min/1.73 square meters End Stage Renal Disease: Less than 15 mL/min/1.73 square meters Glucose [Mass/Vol] 123 mg/dL Invalid Interpretation Code 80 - 115 mg/dL AO ADM SS Hematocrit (Bld) [Volume fraction] 37.6 % Invalid Interpretation Code 37.0 - 47.0 % AO Workflow SS Hemoglobin (Bld) [Mass/Vol] 12.4 G/dL Invalid Interpretation Code 12.0 - 16.0 G/dL AO Workflow SS Lymphocyte, Absolute 0.9 103/mcL Invalid Interpretation Code 0.8 - 3.9 10^3/mcL AO Workflow SS Lymphocytes/100 WBC (Bld) 7.3 % Invalid Interpretation Code 10.0 - 50.0 % AO Workflow SS MCH (RBC) [Entitic mass] 29.5 pg Invalid Interpretation Code 27.0 - 31.2 pg AO Workflow SS MCHC 33.0 G/dL Invalid Interpretation Code 33.0 - 37.0 G/dL AO Workflow SS MCV (RBC) [Entitic vol] 89.4 fL Invalid Interpretation Code 80.0 - 94.0 fL AO Workflow SS Monocyte, Absolute 0.5 103/mcL Invalid Interpretation Code 0.2 - 1.0 10^3/mcL AO Workflow SS Monocytes/100 WBC (Bld) 4.2 % Invalid Interpretation Code 1.7 - 13.0 % AO Workflow SS Neutrophil, Absolute 11.1 103/mcL Invalid Interpretation Code 2.9 - 6.2 10^3/mcL AO Workflow SS Neutrophils/100 WBC (Bld) 88.4 % Invalid Interpretation Code 37.0 - 80.0 % AO Workflow SS Platelet mean volume (Bld) [Entitic vol] 8.3 fL Invalid Interpretation Code 7.4 - 10.4 fL AO Workflow SS Platelets (Bld) [#/Vol] 255 103/mcL Invalid Interpretation Code 130 - 400 10^3/mcL AO Workflow SS Potassium [Moles/Vol] 5.2 mmol/L Invalid Interpretation Code 3.5 - 5.1 mmol/L AO ADM SS RBC (Bld) [#/Vol] 4.21 106/mcL Invalid Interpretation Code 4.20 - 5.40 10^6/mcL AO Workflow SS Sodium [Moles/Vol] 137 mmol/L Invalid Interpretation Code 136 - 145 mmol/L AO ADM SS Urea nitrogen [Mass/Vol] 13 mg/dL Invalid Interpretation Code 7 - 18 mg/dL AO ADM SS Urea nitrogen/Creatinine [Mass ratio] 25 ratio Invalid Interpretation Code 7 - 27 ratio AO ADM SS WBC (Bld) [#/Vol] 12.6 103/mcL Invalid Interpretation Code 4.6 - 10.8 10^3/mcL AO Workflow SS XR ABDOMEN 2 VIEWS W/ DECUB/ ERECTon 07-30-2023 XR ABDOMEN 2 VIEWS W/ DECUB/ERECT ORIGINAL EXAMINATION: 2 XRAY VIEWS OF THE [id number]/30/2023 10:26 am COMPARISON: None HISTORY: ORDERING SYSTEM PROVIDED HISTORY: Reason for Exam: nausea FINDINGS: No air distended bowel segments. No free air seen. Normal volume of stool identified. Coarsened markings noted in the lower thorax. Bony detail is not optimal. IMPRESSION: No free air. Nonobstructive bowel gas pattern Coarsened lower lung markings could relate to chronic interstitial disease Interpreted by: Nilay Carrera MD Preliminary Report By: Nilay Carrera MD Electronically signed By Nilay Carrera MD Dictated Date: 07/30/2023 10:37:38 AM Prelim Date: 07/30/2023 10:38:42 AM Sign Date: 07/30/2023 10:38:42 AM Ordering Provider: MARCIE GUTIERREZ Normal [facility] ([place]) Gel ABOon 07-29-2023 ABO/Rh Interp Positive Invalid Interpretation Code [facility] ([place]) Comment on above: Performed By: #### C BC, ADIFF, BMP, GFR, ANEU #### [address] [address] Gel ABSon 07-29-2023 Antibody Screen Gel Negative Normal [facility] ([place]) Comment on above: Performed By: #### C BC, ADIFF, BMP, GFR, ANEU #### [address] [address] LABORATORYOrdered By: Felix Mace on 07-29-2023 ABO/Rh Interp Positive Invalid Interpretation Code AO BB SS Antibody Screen Gel Negative [facility] (07/29/23 11:05 AM) Invalid Interpretation Code AO BB SS XR KNEE 1 OR 2 VIEWS LEFTon 07-29-2023 XR KNEE 1 OR 2 VIEWS LEFT ORIGINAL HISTORY: Arthroplasty COMPARISON: CT 04 July 2023 FINDINGS: There is an arthroplasty in near anatomic alignment. There is no radiographic evidence of loosening or failure of hardware. There is skin debra and there is gas in the soft tissues and joint space. IMPRESSION: Arthroplasty with immediate postoperative changes. Interpreted by: Fili Arnold MD Preliminary Report By: Fili Arnold MD Electronically signed By Fili Arnold MD Dictated Date: 07/29/2023 3:14:38 PM Prelim Date: 07/29/2023 3:15:19 PM Sign Date: 07/29/2023 3:15:19 PM Ordering Provider: ANJELICA Myers [facility] ([place]) .Auto Diffon 07-04-2023 Basophil, Absolute 0.0 10 3/mcL Normal 0.0-0.2 [facility]) Comment on above: Performed By: #### A LB, ABOG, BMP, ANSG, ADIFF, GFR, ANEU, CBC #### [address] [address] Basophils/100 WBC (Bld) 0.7 % Normal 0.0-2.5 [facility] ([place]) Comment on above: Performed By: #### A LB, ABOG, BMP, ANSG, ADIFF, GFR, ANEU, CBC #### [address] [address] Eosinophil, Absolute 0.1 10 3/mcL Normal 0.0-0.4 [facility] ([place]) Comment on above: Performed By: #### A LB, ABOG, BMP, ANSG, ADIFF, GFR, ANEU, CBC #### [address] [address] Eosinophils/100 WBC (Bld) 2.3 % Normal 0.0-7.0 [facility] ([place]) Comment on above: Performed By: #### A LB, ABOG, BMP, ANSG, ADIFF, GFR, ANEU, CBC #### [address] [address] Lymphocyte, Absolute 1.3 10 3/mcL Normal 0.8-3.9 [facility] ([place]) Comment on above: Performed By: #### A LB, ABOG, BMP, ANSG, ADIFF, GFR, ANEU, CBC #### [address] [address] Lymphocytes/100 WBC (Bld) 21.2 % Normal 10.0-50.0 [facility] ([place]) Comment on above: Performed By: #### A LB, ABOG, BMP, ANSG, ADIFF, GFR, ANEU, CBC #### [address] [address] Monocyte, Absolute 0.7 10 3/mcL Normal 0.2-1.0 [facility] ([place]) Comment on above: Performed By: #### A LB, ABOG, BMP, ANSG, ADIFF, GFR, ANEU, CBC #### [address] [address] Monocytes/100 WBC (Bld) 11.7 % Normal 1.7-13.0 [facility] ([place]) Comment on above: Performed By: #### A LB, ABOG, BMP, ANSG, ADIFF, GFR, ANEU, CBC #### [address] [address] Neutrophils/100 WBC (Bld) 64.1 % Normal 37.0-80.0 [facility] ([place]) Comment on above: Performed By: #### A LB, ABOG, BMP, ANSG, ADIFF, GFR, ANEU, CBC #### [address] [address] .GFRon 07-04-2023 GFR 110 ml/min/1.73sqm Normal [facility] ([place]) Comment on above: Result Comment: GFR Population mean for , Non- Americans Ages 20-29 = 116 mL/min/1.73 sq.m. Ages 30-39 = 107 mL/min/1.73 sq.m. Ages 40-49 = 99 mL/min/1.73 sq.m. Ages 50-59 = 93 mL/min/1.73 sq.m. Ages 60-69 = 85 mL/min/1.73 sq.m. Ages 70+ = 75 mL/min/1.73 sq.m. Chronic Kidney Disease: Less than 60 mL/min/1.73 square meters End Stage Renal Disease: Less than 15 mL/min/1.73 square meters Performed By: #### C BC, ADIFF, BMP, GFR, ANEU #### [address] [address] GFR Non- 90 ml/min/1.73sqm Normal [facility] ([place]) Comment on above: Result Comment: GFR Population mean for , Non- Americans Ages 20-29 = 116 mL/min/1.73 sq.m. Ages 30-39 = 107 mL/min/1.73 sq.m. Ages 40-49 = 99 mL/min/1.73 sq.m. Ages 50-59 = 93 mL/min/1.73 sq.m. Ages 60-69 = 85 mL/min/1.73 sq.m. Ages 70+ = 75 mL/min/1.73 sq.m. Chronic Kidney Disease: Less than 60 mL/min/1.73 square meters End Stage Renal Disease: Less than 15 mL/min/1.73 square meters Performed By: #### C BC, ADIFF, BMP, GFR, ANEU #### [address] [address] .NEUABSon 07-04-2023 Neutrophil, Absolute 3.9 10 3/mcL Normal 2.9-6.2 [facility] ([place]) Comment on above: Performed By: #### C BC, ADIFF, BMP, GFR, ANEU #### [address] [address] ALBon 07-04-2023 Albumin Level 3.9 G/dL Normal 3.4-4.8 [facility] ([place]) Comment on above: Performed By: #### C BC, ADIFF, BMP, GFR, ANEU #### [address] [address] BMPon 07-04-2023 BUN/Creatinine Ratio 25 ratio Normal 7-27 [facility] ([place]) Comment on above: Performed By: #### C BC, ADIFF, BMP, GFR, ANEU #### [address] [address] Calcium [Mass/Vol] 9.4 mg/dL Normal 8.4-10.2 [facility] ([place]) Comment on above: Performed By: #### C BC, ADIFF, BMP, GFR, ANEU #### [address] [address] Chloride [Moles/Vol] 104 mmol/L Normal 98-107 [facility] ([place]) Comment on above: Performed By: #### C BC, ADIFF, BMP, GFR, ANEU #### [address] [address] CO2 [Moles/Vol] 27 mmol/L Normal 23-31 [facility] ([place]) Comment on above: Performed By: #### C BC, ADIFF, BMP, GFR, ANEU #### [address] [address] Creatinine [Mass/Vol] 0.65 mg/dL Normal 0.55-1.02 [facility] ([place]) Comment on above: Performed By: #### C BC, ADIFF, BMP, GFR, ANEU #### [address] [address] Electrolyte Balance 8.0 mEq/L Normal 4.0-15.0 [facility] ([place]) Comment on above: Performed By: #### C BC, ADIFF, BMP, GFR, ANEU #### [address] [address] Glucose [Mass/Vol] 87 mg/dL Normal 80-115 [facility] ([place]) Comment on above: Performed By: #### C BC, ADIFF, BMP, GFR, ANEU #### [address] [address] Potassium [Moles/Vol] 4.9 mmol/L Normal 3.5-5.1 [facility] ([place]) Comment on above: Performed By: #### C BC, ADIFF, BMP, GFR, ANEU #### [address] [address] Sodium [Moles/Vol] 139 mmol/L Normal 136-145 [facility] ([place]) Comment on above: Performed By: #### C BC, ADIFF, BMP, GFR, ANEU #### [address] [address] Urea nitrogen [Mass/Vol] 16 mg/dL Normal 7-18 [facility]) Comment on above: Performed By: #### C BC, ADIFF, BMP, GFR, ANEU #### [address] [address] CBCon 07-04-2023 Erythrocyte distribution width (RBC) [Ratio] 13.4 % Normal 11.5-14.5 [facility]) Comment on above: Order Comment: Pre-A dmission Testing Performed By: #### A LB, ABOG, BMP, ANSG, ADIFF, GFR, ANEU, CBC #### [address] [address] Hematocrit (Bld) [Volume fraction] 42.4 % Normal 37.0-47.0 [facility]) Comment on above: Order Comment: Pre-A dmission Testing Performed By: #### A LB, ABOG, BMP, ANSG, ADIFF, GFR, ANEU, CBC #### [address] [address] Hgb 14.0 G/dL Normal 12.0-16.0 [facility] ([place]) Comment on above: Order Comment: Pre-A dmission Testing Performed By: #### A LB, ABOG, BMP, ANSG, ADIFF, GFR, ANEU, CBC #### [address] [address] MCH (RBC) [Entitic mass] 29.7 pg Normal 27.0-31.2 [facility] ([place]) Comment on above: Order Comment: Pre-A dmission Testing Performed By: #### A LB, ABOG, BMP, ANSG, ADIFF, GFR, ANEU, CBC #### [address] [address] MCHC 33.0 G/dL Normal 33.0-37.0 [facility] ([place]) Comment on above: Order Comment: Pre-A dmission Testing Performed By: #### A LB, ABOG, BMP, ANSG, ADIFF, GFR, ANEU, CBC #### [address] [address] MCV (RBC) [Entitic vol] 90.0 fL Normal 80.0-94.0 [facility] ([place]) Comment on above: Order Comment: Pre-A dmission Testing Performed By: #### A LB, ABOG, BMP, ANSG, ADIFF, GFR, ANEU, CBC #### [address] [address] Platelet 273 10 3/mcL Normal 130-400 [facility] ([place]) Comment on above: Order Comment: Pre-A dmission Testing Performed By: #### A LB, ABOG, BMP, ANSG, ADIFF, GFR, ANEU, CBC #### [address] [address] Platelet mean volume (Bld) [Entitic vol] 9.4 fL Normal 7.4-10.4 [facility] ([place]) Comment on above: Order Comment: Pre-A dmission Testing Performed By: #### A LB, ABOG, BMP, ANSG, ADIFF, GFR, ANEU, CBC #### [address] [address] RBC 4.71 10 6/mcL Normal 4.20-5.40 [facility] ([place]) Comment on above: Order Comment: Pre-A dmission Testing Performed By: #### A LB, ABOG, BMP, ANSG, ADIFF, GFR, ANEU, CBC #### [address] [address] WBC 6.1 10 3/mcL Normal 4.6-10.8 [facility] ([place]) Comment on above: Order Comment: Pre-A dmission Testing Performed By: #### A LB, ABOG, BMP, ANSG, ADIFF, GFR, ANEU, CBC #### [address] [address] [address] KNEE W/O CONTRAST LEFTon 07-04-2023 CT KNEE W/O CONTRAST LEFT ORIGINAL EXAMINATION: CT OF THE LEFT KNEE WITHOUT CONTRAST 07/04/2023 10:06 am TECHNIQUE: CT of the left knee was performed without the administration of intravenous contrast. Multiplanar reformatted images are provided for review. Automated exposure control, iterative reconstruction, and/or weight based adjustment of the mA/kV was utilized to reduce the radiation dose to as low as reasonably achievable. COMPARISON: None. HISTORY ORDERING SYSTEM PROVIDED HISTORY: Reason for Exam: VARUS DEFORMITY FINDINGS: Exam performed for surgical planning protocol Survey images left hip: No aggressive bony lesions Left knee: No aggressive bony lesions seen. Vacuum phenomenon noted in the medial tibiofemoral compartment. Tricompartmental joint space loss and spurring is most prevalent in the medial tibiofemoral compartment. No aggressive bony lesion. 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 There is a small joint effusion Interpreted by: Nilay Carrera MD Preliminary Report By: Nilay Carrera MD Electronically signed By Nilay Carrera MD Dictated Date: 07/04/2023 1:39:17 PM Prelim Date: 07/04/2023 1:41:38 PM Sign Date: 07/04/2023 1:41:38 PM Ordering Provider: ANJELICA Myers [facility] ([place]) Gel ABOon 07-04-2023 ABO/Rh Interp Positive Invalid Interpretation Code [facility] ([place]) Comment on above: Performed By: #### C BC, ADIFF, BMP, GFR, ANEU #### [id number] [place], [place] [address] Gel ABSon 07-04-2023 Antibody Screen Gel Negative Normal [facility] ([place]) Comment on above: Performed By: #### C BC, ADIFF, BMP, GFR, ANEU #### Sun [address] [address] MRSAPCRon 07-04-2023 MRSA (PCR) Not detected Normal Not Detected [facility] ([place]) Comment on above: Result Comment: Note s [id number] Performed By: #### C BC, ADIFF, BMP, GFR, ANEU #### [id number] [place], [place] [address] MRSA PCR Int Normal [facility] ([place]) Comment on above: Result Comment: MRSA DNA not detected by Real-Time Polymerase Chain Reaction (PCR). A negative result may be due to intermittent colonization. Colonization may vary depending on patient treatment, patient status, or exposure to high-risk environments. As with all PCR based in vitro diagnostic tests, extremely low levels of target below the limit of detection of the assay may be detected, but results may not be reproducible. See Below Performed By: #### C BC, ADIFF, BMP, GFR, ANEU #### [place] [id number] [place], [place] [address] CHET SCREENINGon 03-06-2023 [facility] - Chemistry and C hemistry - challengeOrdered By: Dr. Khan on 09-17-2022 Free T4 [Mass/Vol] 1.03 ng/dL 0.76-1.46 [facility] No Panel InformationOrdered By: Dr. Khan on 09-17-2022 Thyroid Stimulating Hormone (TSH) 1.36 uIU/mL 0.358-3.74 [facility] Laboratory - Chemistry and C hemistry - challengeon 06-18-2022 Free T4 [Mass/Vol] 0.98 ng/dL 0.76-1.46 [facility] Work Phone: No Panel Informationon 06-18 Thyroid Stimulating Hormone (TSH) 1.91 uIU/mL 0.358-3.74 [facility] Work Phone: Laboratory - Chemistry and C hemistry - challengeon 06-27-2022 Free T4 [Mass/Vol] 1.04 ng/dL 0.76-1.46 [facility] Work Phone: No Panel Informationon 04-01 Thyroid Stimulating Hormone (TSH) 1.18 uIU/mL 0.358-3.74 [facility] Work Phone: Basophil percentageon 2021 Bilirubin [Mass/Vol] 0.40 mg/dL 0.20-1.00 [facility] Work Phone: Comment on above: For patients on eltr ombopag therapy, use of Dimension [place] TBIL is not recommended. Cholesterol [Mass/Vol] 256 mg/dL <200 [facility] Work Phone: Comment on above: <200 mg/dL Desirable 200-240 mg/dL Borderline >240 mg/dL High Risk Protein [Mass/Vol] 7.4 g/dL 6.4-8.2 [facility] Work Phone: Triglyceride [Mass/Vol] 104 mg/dL <199 [facility] Work Phone: Comment on above: The drugs N-Acetylcy steine and Metamizole may falsely depress this assay.Serum Triglycerides Reference Interval Normal <150 mg/dL Borderline high 150 - 199 mg/dL High 200 - 499 mg/dL Very High > or = 500 mg/dL Direct bilirubinon 2 Bilirubin.direct [Mass/Vol] 0.13 mg/dL 0.00-0.30 [facility] Work Phone: Laboratory - Chemistry and C hemistry - challengeon 03-29-2022 ALP [Catalytic activity/Vol] 105 U/L 45-117 [facility] Work Phone: ALT [Catalytic activity/Vol] 40 U/L 13-56 [facility] Work Phone: Globulin (S) [Mass/Vol] 3.8 g/dL 2.2-4.2 [facility] Work Phone: Serum or plasma albumin vaishali urement (mass/volume)on 03-29-2022 Albumin [Mass/Vol] 3.6 g/dL 3.2-5.0 [facility] Work Phone: Serum or plasma cholesterol in HDL measurement (mass/volume)on 03-29-2022 Cholesterol in HDL [Mass/Vol] 80 mg/dL >40 [facility] Work Phone: Comment on above: The drugs N-Acetylcy steine and Metamizole may falsely depress this assay. Reference Range HDL <40 mg/dL Low HDL Cholesterol HDL >or= 60 mg/dL High HDL Cholesterol Serum or plasma cholesterol in VLDL measurement (mass/volume)on 03-29-2022 Cholesterol in VLDL [Mass/Vol] 21 mg/dL 5-40 [facility] Work Phone: Serum or plasma low density lipoprotein (LDL) cholesterol measurement (mass/volume)on 03-29-2022 Cholesterol in LDL [Mass/Vol] 155 mg/dL 0-130 [facility] Work Phone: Thin prep Papanicolaou smear with manual screeningon 03-29-2022 Thin prep Papanicolaou smear with manual screening 29 U/L 15-37 [facility] Work Phone: CHET SCREENINGon 03-05-2022 [facility] Basophil percentageon 2021 Bilirubin [Mass/Vol] 0.40 mg/dL 0.20-1.00 [facility] Work Phone: Comment on above: For patients on eltr ombopag therapy, use of Dimension [place] TBIL is not recommended. Chloride [Moles/Vol] 102 mmol/L 98-107 [facility] Work Phone: Cholesterol [Mass/Vol] 325 mg/dL <200 [facility] Work Phone: Comment on above: <200 mg/dL Desirable 200-240 mg/dL Borderline >240 mg/dL High Risk Glucose [Mass/Vol] 95 mg/dL 74-106 [facility] Work Phone: Potassium [Moles/Vol] 4.2 mmol/L 3.5-5.1 [facility] Work Phone: Protein [Mass/Vol] 8.2 g/dL 6.4-8.2 [facility] Work Phone: Sodium [Moles/Vol] 137 mmol/L 136-145 [facility] Work Phone: Triglyceride [Mass/Vol] 117 mg/dL <199 [facility] Work Phone: Comment on above: The drugs N-Acetylcy steine and Metamizole may falsely depress this assay.Serum Triglycerides Reference Interval Normal <150 mg/dL Borderline high 150 - 199 mg/dL High 200 - 499 mg/dL Very High > or = 500 mg/dL WBC (Bld) [#/Vol] 5.8 10*3/uL 4.4-11.0 [facility] Work Phone: Blood erythrocytes count (nu mber/volume)on 01-22-2022 RBC (Bld) [#/Vol] 5.27 10*6/uL 4.2-5.4 [facility] Work Phone: Blood hemoglobin measurement (mass/volume)on 01-22-2022 Hemoglobin (Bld) [Mass/Vol] 15.2 g/dL 12.0-15.0 [facility] Work Phone: Blood platelet mean volumeon 01-22-2022 Platelet mean volume (Bld) [Entitic vol] 10.7 fL 6.2-12.0 [facility] Work Phone: Determination of erythrocyte mean corpuscular volume (MCV)on 01-22-2022 MCV (RBC) [Entitic vol] 89.4 fL 81-99 [facility] Work Phone: Hematocrit Auto (Bld) [Volum e fraction]on 01-22-2022 Hematocrit (Bld) [Volume fraction] 47.1 % 37-47 [facility] Work Phone: Laboratory - Chemistry and C hemistry - challengeon 01-22-2022 ALP [Catalytic activity/Vol] 109 U/L 45-117 [facility] Work Phone: ALT [Catalytic activity/Vol] 44 U/L 13-56 [facility] Work Phone: CO2 [Moles/Vol] 28.0 mmol/L 21.0-32.0 [facility] Work Phone: Cobalamin (Vitamin B12) [Mass/Vol] 642 pg/mL 211-911 [facility] Work Phone: Globulin (S) [Mass/Vol] 4.2 g/dL 2.2-4.2 [facility] Work Phone: Urea nitrogen/Creatinine [Mass ratio] 25.7 mg/mg 10-20 [facility] Work Phone: Laboratory - Hematology and Cell countson 01-22-2022 Erythrocyte distribution width (RBC) [Entitic vol] 44.0 fL 35.1-43.9 [facility] Work Phone: Erythrocyte distribution width (RBC) [Ratio] 13.3 % 11.6-14.6 [facility] Work Phone: MCH (RBC) [Entitic mass] 28.8 pg 27.0-32.0 [facility] Work Phone: MCHC Auto (RBC) [Mass/Vol]on 01-22-2022 MCHC (RBC) [Mass/Vol] 32.3 g/dL 32-36 [facility] Work [facility]: No Panel Informationon 01-22 Ionized Calcium 5.6 mg/dL 4.5-5.6 [facility] Work Phone: Comment on above: Performed at: [address] [id number] Director: Matt Calloway PhD, Phone: [phone] Estimated GFR (MDRD) Amer 107 mL/min >60 [facility] Work Phone: Comment on above: GFR Calc Estimated GFR (MDRD) Non-Af Amer 89 mL/min >60 [facility] Work Phone: Comment on above: Non- GFR Calc Parathyroid Hormone (Intact) 37.7 pg/mL 18.4-80.1 [facility] Work Phone: Thyroid Stimulating Hormone (TSH) 3.70 uIU/mL 0.358-3.74 [facility] Work Phone: Vitamin D 25-Hydroxy 53.3 ng/mL [facility] Work Phone: Comment on above: Vitamin D 25(OH) Sta tus Range Deficiency <20 ng/mL (50nmol/L) Insufficiency 20 - 30 ng/mL (50 - 75 nmol/L) Sufficiency 30 - 100 ng/mL (75 - 250 nmol/L) Toxicity >100 ng/mL (>250 nmol/L) Platelets bldon 01-22-2022 Platelets (Bld) [#/Vol] 308 10*3/uL 150-450 [facility] Work Phone: Serum or plasma albumin vaishali urement (mass/volume)on 01-22-2022 Albumin [Mass/Vol] 4.0 g/dL 3.2-5.0 [facility] Work Phone: Serum or plasma albumin/glob ulin mass ratioon 01-22-2022 Albumin/Globulin [Mass ratio] 1.0 {ratio} 0.9-2.4 [facility] Work Phone: Serum or plasma calcium vaishali urement (mass/volume)on 01-22-2022 Calcium [Mass/Vol] 9.4 mg/dL 8.5-10.1 [facility] Work Phone: Serum or plasma cholesterol in HDL measurement (mass/volume)on 01-22-2022 Cholesterol in HDL [Mass/Vol] 93 mg/dL >40 [facility] Work Phone: Comment on above: The drugs N-Acetylcy steine and Metamizole may falsely depress this assay. Reference Range HDL <40 mg/dL Low HDL Cholesterol HDL >or= 60 mg/dL High HDL Cholesterol Serum or plasma cholesterol in VLDL measurement (mass/volume)on 01-22-2022 Cholesterol in VLDL [Mass/Vol] 23 mg/dL 5-40 [facility] Work Phone: Serum or plasma creatinine m easurement (mass/volume)on 01-22-2022 Creatinine [Mass/Vol] 0.70 mg/dL 0.55-1.02 [facility] Work Phone: Comment on above: The validity of the calculated GFR & GFRAA in patients over 70 years has not been determined. Clinical correlation is essential. Serum or plasma low density lipoprotein (LDL) cholesterol measurement (mass/volume)on 01-22-2022 Cholesterol in LDL [Mass/Vol] 209 mg/dL 0-130 [facility] Work Phone: Serum or plasma urea nitroge n measurement (mass/volume)on 01-22-2022 Urea nitrogen [Mass/Vol] 18 mg/dL 7-18 [facility] Work Phone: Thin prep Papanicolaou smear with manual screeningon 01-22-2022 Thin prep Papanicolaou smear with manual screening 27 U/L 15-37 [facility] Work Phone: Thin prep Papanicolaou smear with manual screening 7 5-15 [facility] Work Phone: CNTHERAPYon 10-25-2021 CNTHERAPY OT/PT/Speech Visit (OTC) MARISSA MARVIN ([id number]) 1955 F Date Time Provider Department 10/25/21 1:15 PM ILIANA COVARRUBIAS [facility] Date Time Provider Department Center 10/25/2021 1:15 PM [id number] COVARRUBIAS [facility] Reason for Visit: OT Discharge [750] Primary Visit Diagnosis:Arthritis of carpometacarpal (CMC) joint of left thumb [M18.12] Other Visit Diagnosis:Primary osteoarthritis of first carpometacarpal joint of left hand [M18.12] Allergies As of Date: 10/25/2021 Noted Allergy Reaction COMPAZINE (PROCHLORPERAZINE) 10/17/2008 5 - Intolerance ERYTHROMYCIN 10/17/2008 11 - Vomiting CIPROFLOXACIN 07/31/2012 2 - Rash IODINE 09/06/2016 2 - Rash Comments: BLISTERY BUBBLY RASH PER PATIENT PENICILLINS 11/27/2005 16 - Unknown Comments: childhood Date Reviewed: 10/18/2021 Reviewed by: Chris Patel MD - Fully Assessed Prescriptions as of 10/25/2021 - beclomethasone dipropionate (QVAR INHALATION) Inhale as instructed every other day. - levothyroxine 25 mcg cap Take 25 mcg by mouth daily before breakfast. - dupilumab (DUPIXENT PEN) 300 mg/2 mL pen Inject subcutaneously every 2 weeks. - desloratadine (CLARINEX) 5 mg tablet - fluticasone propionate (FLONASE NASAL) Use in the nose. - cyanocobalamin, vitamin B-12, (B-12 DOTS ORAL) Take by mouth. - esomeprazole (NEXIUM) 20 mg capsule Take 20 mg by mouth DAILY (6 AM). - naproxen (NAPROSYN) 500 mg tablet Take 500 mg by mouth twice daily with meals. as needed for pain - Palmer-3 Fatty Acids-Vitamin E (FISH OIL) 1,000 mg cap Take 1 capsule by mouth. - TRIAMCINOLONE ACETONIDE 55 mcg nasal inhaler once daily. Switch on and off with flonase - AMMONIUM LACTATE 12 % LOTION bid at affected areas - SINGULAIR 10 MG TAB Take one(1) tablet daily at bedtime. [facility] OT[facility]Speech [facility] MARISSA MARVIN ([id number]) 1955 F Date Time Provider Department 10/18/21 1:15 PM ILIANA COVARRUBIAS [facility] Date Time Provider Department Center 10/18/2021 1:15 PM [id number] COVARRUBIAS [facility] Reason for Visit: Occupational Therapy [504] Primary Visit Diagnosis:Arthritis of carpometacarpal (CMC) joint of left thumb [M18.12] Allergies As of Date: 10/18/2021 Noted Allergy Reaction COMPAZINE (PROCHLORPERAZINE) 10/17/2008 5 - Intolerance ERYTHROMYCIN 10/17/2008 11 - Vomiting CIPROFLOXACIN 07/31/2012 2 - Rash IODINE 09/06/2016 2 - Rash Comments: BLISTERY BUBBLY RASH PER PATIENT PENICILLINS 11/27/2005 16 - Unknown Comments: childhood Date Reviewed: 10/18/2021 Reviewed by: Chris Patel MD - Fully Assessed Prescriptions as of 10/18/2021 - beclomethasone dipropionate (QVAR INHALATION) Inhale as instructed every other day. - levothyroxine 25 mcg cap Take 25 mcg by mouth daily before breakfast. - dupilumab (DUPIXENT PEN) 300 mg/2 mL pen Inject subcutaneously every 2 weeks. - desloratadine (CLARINEX) 5 mg tablet - fluticasone propionate (FLONASE NASAL) Use in the nose. - cyanocobalamin, vitamin B-12, (B-12 DOTS ORAL) Take by mouth. - esomeprazole (NEXIUM) 20 mg capsule Take 20 mg by mouth DAILY (6 AM). - naproxen (NAPROSYN) 500 mg tablet Take 500 mg by mouth twice daily with meals. as needed for pain - Palmer-3 Fatty Acids-Vitamin E (FISH OIL) 1,000 mg cap Take 1 capsule by mouth. - TRIAMCINOLONE ACETONIDE 55 mcg nasal inhaler once daily. Switch on and off with flonase - AMMONIUM LACTATE 12 % LOTION bid at affected areas - SINGULAIR 10 MG TAB Take one(1) tablet daily at bedtime. [facility] CNTHERAPYon 10-11-2021 CNTHERAPY OT/PT/Speech Visit ([facility]) MARISSA MARVIN ([id number]) 1955 F Date Time Provider Department 10/11/21 1:15 PM ILIANA COVARRUBIAS [facility] Date Time Provider Department Center 10/11/2021 1:15 PM [id number] COVARRUBIAS [facility] Reason for Visit: OT Progress Note [1595] Primary Visit Diagnosis:Arthritis of carpometacarpal (CMC) joint of left thumb [M18.12] Allergies As of Date: 10/11/2021 Noted Allergy Reaction COMPAZINE (PROCHLORPERAZINE) 10/17/2008 5 - Intolerance ERYTHROMYCIN 10/17/2008 11 - Vomiting CIPROFLOXACIN 07/31/2012 2 - Rash IODINE 09/06/2016 2 - Rash Comments: BLISTERY BUBBLY RASH PER PATIENT PENICILLINS 11/27/2005 16 - Unknown Comments: childhood Date Reviewed: 10/04/2021 Reviewed by: Zaida Rios PA-C - Fully Assessed Prescriptions as of 10/11/2021 - beclomethasone dipropionate (QVAR INHALATION) Inhale as instructed every other day. - levothyroxine 25 mcg cap Take 25 mcg by mouth daily before breakfast. - dupilumab (DUPIXENT PEN) 300 mg/2 mL pen Inject subcutaneously every 2 weeks. - desloratadine (CLARINEX) 5 mg tablet - fluticasone propionate (FLONASE NASAL) Use in the nose. - cyanocobalamin, vitamin B-12, (B-12 DOTS ORAL) Take by mouth. - esomeprazole (NEXIUM) 20 mg capsule Take 20 mg by mouth DAILY (6 AM). - naproxen (NAPROSYN) 500 mg tablet Take 500 mg by mouth twice daily with meals. as needed for pain - Palmer-3 Fatty Acids-Vitamin E (FISH OIL) 1,000 mg cap Take 1 capsule by mouth. - TRIAMCINOLONE ACETONIDE 55 mcg nasal inhaler once daily. Switch on and off with flonase - AMMONIUM LACTATE 12 % LOTION bid at affected areas - SINGULAIR 10 MG TAB Take one(1) tablet daily at bedtime. Annotated image of OT HAND THERAPUTTY EXERCISES PG 1 last updated by Iliana Covarrubias OT/Bharti on 10/11/2021 1:48 PM Annotated image of OT HAND THERAPUTTY EXERCISES PG 2 last updated by Iliana Covarrubias OT/Bharti on 10/11/2021 1:48 PM [facility] CNTHERAPYon 10-02-2021 CNTHERAPY OT/PT/Speech Visit ([facility]) MARISSA MARVIN ([id number]) 1955 F Date Time Provider Department 10/02/21 1:15 PM ILIANA COVARRUBIAS [facility] Date Time Provider Department Center 10/02/2021 1:15 PM [id number] COVARRUBIAS [facility] Reason for Visit: Occupational Therapy [504] Primary Visit Diagnosis:Arthritis of carpometacarpal (CMC) joint of left thumb [M18.12] Allergies As of Date: 10/02/2021 Noted Allergy Reaction COMPAZINE (PROCHLORPERAZINE) 10/17/2008 5 - Intolerance ERYTHROMYCIN 10/17/2008 11 - Vomiting CIPROFLOXACIN 07/31/2012 2 - Rash IODINE 09/06/2016 2 - Rash Comments: BLISTERY BUBBLY RASH PER PATIENT PENICILLINS 11/27/2005 16 - Unknown Comments: childhood Date Reviewed: 09/20/2021 Reviewed by: Nevaeh Acuna Ma - Fully Assessed Prescriptions as of 10/02/2021 - beclomethasone dipropionate (QVAR INHALATION) Inhale as instructed every other day. - levothyroxine 25 mcg cap Take 25 mcg by mouth daily before breakfast. - dupilumab (DUPIXENT PEN) 300 mg/2 mL pen Inject subcutaneously every 2 weeks. - desloratadine (CLARINEX) 5 mg tablet - fluticasone propionate (FLONASE NASAL) Use in the nose. - cyanocobalamin, vitamin B-12, (B-12 DOTS ORAL) Take by mouth. - esomeprazole (NEXIUM) 20 mg capsule Take 20 mg by mouth DAILY (6 AM). - naproxen (NAPROSYN) 500 mg tablet Take 500 mg by mouth twice daily with meals. as needed for pain - Palmer-3 Fatty Acids-Vitamin E (FISH OIL) 1,000 mg cap Take 1 capsule by mouth. - TRIAMCINOLONE ACETONIDE 55 mcg nasal inhaler once daily. Switch on and off with flonase - AMMONIUM LACTATE 12 % LOTION bid at affected areas - SINGULAIR 10 MG TAB Take one(1) tablet daily at bedtime. Annotated image of OT HAND WRIST STRENGTHENING last updated by Iliana Covarrubias OT/L on 10/02/2021 1:44 PM [facility] CNTHERAPYon 09-27-2021 CNTHERAPY OT/PT/Speech Visit ([facility]) MARISSA MARVIN ([id number]) 1955 F Date Time Provider Department 09/27/21 1:15 PM [facility] Date Time Provider Department Center 09/27/2021 1:15 PM [id number] COVARRUBIAS [facility] Reason for Visit: Occupational Therapy [504] Primary Visit Diagnosis:Arthritis of carpometacarpal (CMC) joint of left thumb [M18.12] Allergies As of Date: 09/27/2021 Noted Allergy Reaction COMPAZINE (PROCHLORPERAZINE) 10/17/2008 5 - Intolerance ERYTHROMYCIN 10/17/2008 11 - Vomiting CIPROFLOXACIN 07/31/2012 2 - Rash IODINE 09/06/2016 2 - Rash Comments: BLISTERY BUBBLY RASH PER PATIENT PENICILLINS 11/27/2005 16 - Unknown Comments: childhood Date Reviewed: 09/20/2021 Reviewed by: Nevaeh Acuna Ma - Fully Assessed Prescriptions as of 09/27/2021 - beclomethasone dipropionate (QVAR INHALATION) Inhale as instructed every other day. - levothyroxine 25 mcg cap Take 25 mcg by mouth daily before breakfast. - dupilumab (DUPIXENT PEN) 300 mg/2 mL pen Inject subcutaneously every 2 weeks. - desloratadine (CLARINEX) 5 mg tablet - fluticasone propionate (FLONASE NASAL) Use in the nose. - cyanocobalamin, vitamin B-12, (B-12 DOTS ORAL) Take by mouth. - esomeprazole (NEXIUM) 20 mg capsule Take 20 mg by mouth DAILY (6 AM). - naproxen (NAPROSYN) 500 mg tablet Take 500 mg by mouth twice daily with meals. as needed for pain - Palmer-3 Fatty Acids-Vitamin E (FISH OIL) 1,000 mg cap Take 1 capsule by mouth. - TRIAMCINOLONE ACETONIDE 55 mcg nasal inhaler once daily. Switch on and off with flonase - AMMONIUM LACTATE 12 % LOTION bid at affected areas - SINGULAIR 10 MG TAB Take one(1) tablet daily at bedtime. [facility] CNTHERAPYon 09-06-2021 CNTHERAPY OT/PT/Speech Visit ([facility] MARISSA MARVIN ([id number]) 1955 F Date Time Provider Department 09/06/21 8:45 AM ILIANA COVARRUBIAS [facility] Date Time Provider Department Center 09/06/2021 8:45 AM [id number] COVARRUBIAS [facility] Reason for Visit: OT EVAL [748] Visit Diagnosis:Primary osteoarthritis of first carpometacarpal joint of left hand [M18.12] Allergies As of Date: 09/06/2021 Noted Allergy Reaction COMPAZINE (PROCHLORPERAZINE) 10/17/2008 5 - Intolerance ERYTHROMYCIN 10/17/2008 11 - Vomiting CIPROFLOXACIN 07/31/2012 2 - Rash IODINE 09/06/2016 2 - Rash Comments: BLISTERY BUBBLY RASH PER PATIENT PENICILLINS 11/27/2005 16 - Unknown Comments: childhood Date Reviewed: 09/06/2021 Reviewed by: Zaida Rios PA-C - Fully Assessed Prescriptions as of 09/07/2021 - beclomethasone dipropionate (QVAR INHALATION) Inhale as instructed every other day. - levothyroxine 25 mcg cap Take 25 mcg by mouth daily before breakfast. - dupilumab (DUPIXENT PEN) 300 mg/2 mL pen Inject subcutaneously every 2 weeks. - desloratadine (CLARINEX) 5 mg tablet - fluticasone propionate (FLONASE NASAL) Use in the nose. - cyanocobalamin, vitamin B-12, (B-12 DOTS ORAL) Take by mouth. - esomeprazole (NEXIUM) 20 mg capsule Take 20 mg by mouth DAILY (6 AM). - naproxen (NAPROSYN) 500 mg tablet Take 500 mg by mouth twice daily with meals. as needed for pain - Palmer-3 Fatty Acids-Vitamin E (FISH OIL) 1,000 mg cap Take 1 capsule by mouth. - TRIAMCINOLONE ACETONIDE 55 mcg nasal inhaler once daily. Switch on and off with flonase - AMMONIUM LACTATE 12 % LOTION bid at affected areas - SINGULAIR 10 MG TAB Take one(1) tablet daily at bedtime. Annotated image of OT HAND POST-OP EX'S PG4-WRIST last updated by Iliana Covarrubias OT/Bharti on 09/06/2021 9:32 AM Annotated image of OT HAND POST-OP EX'S PG6-THUMB last updated by Iliana Covarrubias OT/Bharti on 09/06/2021 9:32 AM Annotated image of OT HAND POST-OP EX'S PG1-WRITTEN INSTRUCTIONS last updated by Iliana Covarrubias OT/Bharti on 09/06/2021 9:32 AM Letter Text Normal [facility] ANES POSTPROC EVALon -19-2 021 ANES POSTPROC EVAL HNO ID: [id number] Author: Sanjay Eduardo MD Service: Anesthesiology Author Type: Anesthesiologist Type: Anesthesia Postprocedure Evaluation Filed: 08/24/2021 4:24 PM Note Text: POST ANESTHESIA EVALUATION NOTE : 1955 Procedure Summary Date: 08/24/21 Room / Location: MO OR / MO OR Anesthesia Start: 1238 Anesthesia Stop: 1350 Procedure: ARTHROPLASTY CARPOMETACARPAL JOINTS (Left Hand) Diagnosis: Primary osteoarthritis of first carpometacarpal joint of left hand Surgeons: Chris Patel MD Responsible Provider: Sanjay Eduardo MD Anesthesia Type: regional, MAC ASA Status: 2 Anesthesia Type: regional, MAC Last vitals Vitals Value Taken Time BP 140/74 08/24/21 1445 Temp 36.1 ?C (97 ?F) 08/24/21 1400 Pulse 61 08/24/21 1447 Resp 13 08/24/21 1447 SpO2 99 % 08/24/21 1447 Vitals shown include unvalidated device data. Post Anesthesia Patient Status Patient Evaluation: bedside. Anticipated Disposition: phase 2 then home. Neurological Status: aware and responsive. Pulmonary Status: breathing comfortably on room air Airway Control: returned to baseline unsupported. Cardiovascular Status: stable. Pain Management: clinically adequate Postoperative Hydration: acceptable. Intraoperative Events: no significant anesthesia events Post Operative Nausea/Vomiting Status: no significant post operative nausea or vomiting Anesthetic Observations: Recommendation: continue current plan of care. Anesthesia Observations No Documentation SIGNATURE: Sanjay Eduardo MD PATIENT NAME: Marissa Marvin DATE: August 24, 2021 TIME: 4:24 PM CSN: [id number] [facility] ANES PRE-OPon 08-24-2021 ANES PRE-OP HNO ID: [id number] Author: Sanjay Eduardo MD Service: Anesthesiology Author Type: Anesthesiologist Type: Anesthesia Preprocedure Evaluation Filed: 08/24/2021 1:01 PM Note Text: ANESTHESIOLOGY DAY OF SURGERY NOTE : 1955 Procedure(s) (LRB): ARTHROPLASTY CARPOMETACARPAL JOINTS (Left) Surgeon(s): Chris Patel MD Estimated body mass index is 26.61 kg/m? as calculated from the following: Height as of 08/20/21: 162.6 cm (5' 4). Weight as of 08/20/21: 70.3 kg (155 lb). Most recent hematocrit and potassium results: Hematocrit 45.0 08/08/2016 Potassium 5.0 08/08/2016 Relevant Problems ENDO (+) Hypothyroidism GI (+) Gastroesophageal reflux disease without esophagitis PULMONARY (+) Exercise-induced asthma I - PHYSICAL EVALUATION AIRWAY Patient intubated: No. Tracheostomy tube not present Mallampati: II. TM distance: >3 FB. Neck ROM: full ROM without neurological symptoms. Mouth opening: adequate. Short neck: no. Thick neck: no DENTAL Additional comments: Capped upper intact . Additional exam findings: yes. CARDIOVASCULAR Rhythm: regular PULMONARY Breath sounds clear to auscultation. II - ANESTHESIA PLAN ASA Score: 2 Anesthetic Plan: regional and MAC The patient is not a current smoker. NPO Status: adequate Administration of chronic beta cindy medication not planned. Monitoring plan: standard ASA. Postoperative analgesic plan: multimodal analgesia. Anesthetic Risks, Benefits, Alternatives, Personnel Discussed. Consent obtained from: patient.Patient / Surrogate agrees to blood products: Yes DNR status not reviewed with patient and/or family prior to surgery. Significant changes in the patient condition since the History and Physical, not otherwise documented in primary service progress note: no. Potential Anesthesia issues that may suggest increased risk of complications or contraindication to planned procedure: none. Vitals Value Taken Time BP 160/81 08/24/21 1056 Pulse 81 08/24/21 1056 Resp Temp 36.2 ?C (97.2 ?F) 08/24/21 1056 SpO2 99 % 08/24/21 1056 Facility-Administere d Medications as of 08/24/2021 Medication Dose Route Frequency - lidocaine 10 mg/mL (1 %) 1-2 mg injection (XYLOCAINE) 0.1-0.2 mL INTRADERMAL PRN - lactated ringers iv infusion 5-30 mL/hr INTRAVENOUS CONTINUOUS - ceFAZolin iv piggyback 2 g in D5W (iso-osmotic) 100 mL (ANCEF) 2 g INTRAVENOUS Pre-Op Once - midazolam (PF) 1-2 mg injection (VERSED) 1-2 mg INTRAVENOUS Pre-Op Once Outpatient Medications as of 08/24/2021 Medication Sig - beclomethasone dipropionate (QVAR INHALATION) Inhale as instructed every other day. - levothyroxine 25 mcg cap Take 25 mcg by mouth daily before breakfast. - fluticasone propionate (FLONASE NASAL) Use in the nose. - esomeprazole (NEXIUM) 20 mg capsule Take 20 mg by mouth DAILY (6 AM). - SINGULAIR 10 MG TAB Take one(1) tablet daily at bedtime. - dupilumab (DUPIXENT PEN) 300 mg/2 mL pen Inject subcutaneously every 2 weeks. - desloratadine (CLARINEX) 5 mg tablet - cyanocobalamin, vitamin B-12, (B-12 DOTS ORAL) Take by mouth. - naproxen (NAPROSYN) 500 mg tablet Take 500 mg by mouth twice daily with meals. as needed for pain - Palmer-3 Fatty Acids-Vitamin E (FISH OIL) 1,000 mg cap Take 1 capsule by mouth. - TRIAMCINOLONE ACETONIDE 55 mcg nasal inhaler once daily. Switch on and off with flonase - AMMONIUM LACTATE 12 % LOTION bid at affected areas I have interviewed and examined the patient. I have reviewed the medical record and/or the pre-anesthesia evaluation, pertinent labs, and test results. This contains updated information obtained within 48 hours of Surgery/Procedure. SIGNATURE: Arlyn Allen MD PATIENT NAME: Marissa Marvin DATE: August 24, 2021 TIME: 11:24 AM CSN: [id number] [facility] NURSING PROGon 08-24-2021 NURSING PROG HNO ID: [id number] Author: Garland Yang RN Service: Nursing Author Type: Registered Nurse Type: Nursing Progress Note Filed: 08/24/2021 12:36 PM Note Text: Dr. Eduardo at bedside for Left axillary nerve block. RN at bedside, pt monitored throughout, BP 154/71 Pulse 79 Temp 36.2 ?C (97.2 ?F) (Temporal Artery) Resp 19 SpO2 99% . Pt tolerated procedure without difficulty. [facility] OPERATIVE NOon 08-24-2021 OPERATIVE NO HNO ID: [id number] Author: Chris Patel MD Service: Orthopaedic Surgery Author Type: Physician Type: Operative Report Filed: 08/29/2021 10:24 AM Note Text: OPERATIVE/PROCEDURE REPORT LOG ID: [id number] SURGERY/PROCEDURE DATE: 08/24/2021 INCISION/PROCEDURE START TIME: 12:50 PM INCISION CLOSE/PROCEDURE END TIME: 1:48 PM SURGEON(S)/PROCEDURA LIST(S) AND PRODUCTION MACHINIST(S): Surgeon(s) and Role: * Chris Patel MD - Primary Physician Shower Room Attendant: Zaida Rios PA-C SURGERY/PROCEDURE(S) : 1. Left thumb, carpometacarpal joint arthroplasty with trapeziectomy. 2. Left wrist, first dorsal compartment release ANESTHESIA: Block Regional - Extremity Upper SURGERY/PROCEDURE DETAILS: This is a pleasant, 66-year-old female with a history of left thumb carpometacarpal joint arthritis who has exhausted nonoperative management. We reviewed the risks, benefits, alternatives and potential complications involving both operative nonoperative treatment. She wished to pursue surgery on the thumb. In the preoperative area pt was marked by myself and subsequently had an upper extremity block placed per the anesthetic team. Pt was then taken the operative suite and placed in a supine position with an armboard on the Left. All other bony landmarks were properly padded in standard fashion. Anesthesia assumed care of the head and neck for the remainder the case and began a supplemental anesthetic. A well-padded upper brachium tourniquet was applied with cotton padding, all other bony prominences were padded accordingly. The upper extremity was then sterilely prepped and draped in standard fashion. A timeout was conducted and all in the room were in agreement, signed consent form was on the chart, images were available for viewing and implants were in the room with representation. The upper extremity was then exsanguinated with an Esmarch bandage and the tourniquet was applied at 250 mmHg. A dorsal incision was made directly over the CMC joint with a 15 blade through the dermis. Care was taken to identify the radial sensory nerve branches and these were protected throughout the case. I then came down through the interval between the APL and EPB tendons. The compartments containing these were released following back proximally releasing the first dorsal compartment. The CMC joint capsule was then identified and incised along the ulnar border of the APL tendon. The radial artery branches were identified proximal to this and were protected with a Ragnell retractor. Full-thickness flap of capsule was then elevated to expose the trapezium. I dissected out all of the borders of the trapezium confirming the metacarpal trapezial joint as well as the trapezium scaphoid joints. I then used a reciprocating saw to score an x into the trapezium and then a small osteotome was used to split it in line with the FCR tendon is running deep to it. Both rongeur as well as Adson-Brown with a knife was used to completely remove all the portions of the trapezium. Next, based on her pre-op xrays and then OR findings, her ST joint was severly worn as well, thus I took a 2mm wafer out of the trapzoid The wound was copiously irrigated and I used a [place] to inspect the joint to make sure there were no remaining fragments as well as inspecting the scaphoid trapezial joint which was looking appropriate in this case. I then used an 0 FiberWire passed between the APL tendon distally and the FCR tendon near its insertion at the index metacarpal and the trapeziectomy site. The suture was tightened down with a series of 7 kn and a second one was placed in a [id number] fashion to provide a suspension for the thumb metacarpal. With axial loading there was no subluxation or proximal migration of the metacarpal. I then released the FCR proximal to this tenodesis. I copiously irrigated the joint again and closed the capsule with a 4-0 Monocryl suture in a watertight closure. At this time the tourniquet was taken down and hemostasis was observed with bipolar electrocautery. The skin closure was then completed with a few buried 3-0 Monocryl sutures as well as a running, subcuticular weave with skin glue and Steri-Strips on the tails. Sterile 4 x 4's, a well-padded splint was created across the thumb leaving the IP joint free, a light Shaquille wrap and Miko bandage for final bandages. Patient was safely awoken and transferred to the postanesthetic care unit in stable condition. There were no complications during the procedure. PRE-OP/PRE-PROCEDURE DIAGNOSIS: 1. Left thumb, carpometacarpal joint osteoarthritis. 2. Left wrist, de Quervain's tenosynovitis. POST-OP/POST-PROCEDU RE DIAGNOSIS: Same as Preop ESTIMATED BLOOD LOSS: 30 mls SPECIMENS: None sent IMPLANTABLE DEVICES: None DRAINS: None COMPLICATIONS: None PARTICIPATION IN SURGERY/PROCEDURE: I/primary surgeon/proceduralis t performed the procedure with assistance. (more content not included)... Normal [facility] Lab Report: T4 Total, Thyrox inon 10-07-2017 Thyroxine (T4) 9.1 ug/dL Invalid Interpretation Code 4.8-13.9 [facility] Work Phone: Lab Report: Thyroid Stim Hor nikolas (TSH)on 10-07-2017 Thyroid stimulating hormone (TSH) 2.03 u[iU]/mL Invalid Interpretation Code 0.358-3.74 [facility] Work Phone: Office Visiton 04-22-2014 Documentation of current medications (procedure) Done Invalid Interpretation Code [facility] Work Phone: [phone] Tobacco smoking status NHIS Tobacco smoking status [facility] Invalid Interpretation Code [facility] Work Phone: [phone] Vital Signs Date Time Vital Sign Value Performing Clinician Faci lity 12-07-2024 14:29-0500 Body height 162.[address] Guero Khan MD Work Phone: [facility] 12-07-2024 14:29-0500 Body mass index (BMI) [Ratio] 26.9 kg/m2 Dr. Guero hKan MD Work Phone: [facility] 12-07-2024 14:29-0500 Body weight 71.[address] Guero Khan MD Work Phone: [facility] 12-07-2024 14:29-0500 Diastolic blood pressure 82 mm[Hg] Dr. Guero Khan MD Work Phone: [facility] 12-07-2024 14:29-0500 Heart rate 71 /min Dr. Guero Khan MD Work Phone: [facility] 12-07-2024 14:29-0500 Respiratory rate 18 /min Dr. Guero Khan MD Work Phone: [facility] 12-07-2024 14:29-0500 SaO2% (BldA) [Mass fraction] 96 % Dr. Guero Khan MD Work Phone: [facility] 12-07-2024 14:29-0500 Systolic blood pressure 125 mm[Hg] Dr. Guero Khan MD Work Phone: [facility] 06-20-2024 14:53-0400 Body mass index (BMI) [Ratio] 27.9 kg/m2 Silvia Lopez APRN.KINESIOTHERAPIST Work Phone: [facility] 06-20-2024 14:53-0400 Body temperature 98.4 [degF] Silvia Lopez APRN.KINESIOTHERAPIST Work Phone: [facility] 06-20-2024 14:53-0400 Body weight 72 kg Silvia Lopez APRN.KINESIOTHERAPIST Work Phone: [facility] 06-20-2024 14:53-0400 Diastolic blood pressure 84 mm[Hg] Silvia Lopez APRN.KINESIOTHERAPIST Work Phone: [facility] 06-20-2024 14:53-0400 Heart rate 70 /min Silvia Lopez APRN.KINESIOTHERAPIST Work Phone: [facility] 06-20-2024 14:53-0400 Respiratory rate 18 /min Silvia Lopez APRN.KINESIOTHERAPIST Work Phone: [facility] 06-20-2024 14:53-0400 SaO2% (BldA) [Mass fraction] 97 % Silvia Lopez APRN.KINESIOTHERAPIST Work Phone: [facility] 06-20-2024 14:53-0400 Systolic blood pressure 115 mm[Hg] Silvia Lopez APRN.KINESIOTHERAPIST Work Phone: [facility] 01-19-2024 09:29-0400 Body weight 70.31 kg Milton Lujan MD Work Phone: [facility] 01-19-2024 09:29-0400 Diastolic blood pressure 68 mm[Hg] Milton Lujan MD Work Phone: [facility] 01-19-2024 09:29-0400 Systolic blood pressure 110 mm[Hg] Milton Lujan MD Work Phone: [facility] 07-31-2023 11:23-0400 Body temperature 98.06 [degF] DR ANJELICA SHI MD [facility] 07-31-2023 11:23-0400 Diastolic Blood Pressure Non-Invasive [address] ANJELICA SHI MD [facility] 07-31-2023 11:23-0400 Heart rate 72 /min DR ANJELICA SHI MD [facility] 07-31-2023 11:23-0400 Respiratory rate 20 /min DR ANJELICA SHI MD [facility] 07-31-2023 11:23-0400 Systolic Blood Pressure Non-Invasive [address] ANJELICA SHI MD [facility] 07-31-2023 06:53-0400 Body temperature 98.06 [degF] DR ANJELICA SHI MD [facility] 07-31-2023 06:53-0400 Diastolic Blood Pressure Non-Invasive [address] ANJELICA SHI MD [facility] 07-31-2023 06:53-0400 Heart rate 74 /min DR ANJELICA SHI MD [facility] 07-31-2023 06:53-0400 Respiratory rate 20 /min DR ANJELICA SHI MD [facility] 07-31-2023 06:53-0400 Systolic Blood Pressure Non-Invasive [address] ANJELICA SHI MD [facility] 07-31-2023 03:28-0400 Body temperature 97.7 [degF] DR ANJELICA SHI MD [facility] 07-31-2023 03:28-0400 Diastolic Blood Pressure Non-Invasive [address] ANJELICA SHI MD [facility] 07-31-2023 03:28-0400 Heart rate 81 /min DR ANJELICA SHI MD [facility] 07-31-2023 03:28-0400 Reason For Taking VItal Signs DR ANJELICA SHI MD [facility] 07-31-2023 03:28-0400 Respiratory rate 18 /min DR ANJELICA SHI MD [facility] 07-31-2023 03:28-0400 Systolic Blood Pressure Non-Invasive [address] ANJELICA SHI MD [facility] 07-30-2023 23:38-0400 Heart rate 82 /min DR ANJELICA SHI MD [facility] 07-30-2023 23:38-0400 Reason For Taking VItal Signs DR ANJELICA SHI MD [facility] 07-30-2023 21:45-0400 Heart rate 78 /min DR ANJELICA SHI MD [facility] 07-30-2023 04:45-0400 Reason For Taking VItal Signs DR ANJELICA SHI MD [facility] 07-29-2023 16:14-0400 Heart rate 87 /min DR ANJELICA SHI MD [facility] 07-29-2023 15:54-0400 Body height 162.[address] ANJELICA SHI MD [facility] 07-29-2023 15:54-0400 Body weight 68.[address] ANJELICA SHI MD [facility] 07-29-2023 15:54-0400 Body weight 25.8 kg/m2 DR ANJELICA SHI MD [facility] 07-29-2023 15:10-0400 Heart rate 88 /min DR ANJELICA SHI MD [facility] 07-29-2023 14:59-0400 Heart rate 83 /min DR ANJELICA SHI MD [facility] 07-29-2023 14:31-0400 Body temperature 97.88 [degF] DR ANJELICA SHI MD [facility] 07-29-2023 14:25-0400 Respiratory Rate - Anes 17 br/min DR ANJELICA SHI MD [facility] 07-29-2023 14:20-0400 Respiratory Rate - Anes 13 br/min DR ANJELICA SHI MD [facility] 07-29-2023 14:15-0400 Respiratory Rate - Anes 12 br/min DR ANJELICA SHI MD [facility] 07-29-2023 10:49-0400 Body temperature 97.52 [degF] DR ANJELICA SHI MD [facility] 05-10-2013 09:13-0400 Weight 70.76 kg [facility] Work Phone: 03-15-2013 12:33-0400 BP Diastolic 74 mm[Hg] [facility] Work Phone: 03-15-2013 12:33-0400 BP Systolic 120 mm[Hg] [facility] Work Phone: 03-15-2013 12:33-0400 Pulse (Heart Rate) 72 /min [facility] Work Phone: 01-07-2013 10:26-0400 Height 162.56 cm Ariana Kan RN [facility] Work Phone: Encounters Encounter Date Encounter Type Care Provider Facility Start: 03-15-2025 ambulatory Milton Lozoya y:[facility] Start: 02-22-2025 End: 02-22-[address] Guero Khan MD Work Phone: [facility] Work Phone: Start: 02-22-2025 End: 02-22-[address] Guero Khan MD -Outpatient Bone Densitometry Work Phone: Start: 02-22-2025 End: 02-22-2025 ambulatory Guero Khan Facility:[facility] Start: 12-30-2024 End: 12-30-[address] Guero Khan MD Work Phone: [facility] Work Phone: Start: 12-30-2024 End: 12-30-[address] Guero Khan MD -Laboratory, [facility] Start: 12-30-2024 Non-patient / Non-visit Dr. Tayo CARLIN -[facility] Start: 12-30-2024 End: 12-30-[address] Guero Khan MD Work Phone: [facility] Work Phone: Start: 12-30-2024 End: 12-30-[address] Marcie Barragan MD -Cardiovascular Services Work Phone: Start: 12-30-2024 End: 12-30-2024 ambulatory Guero Khan Facility:[facility] Start: 12-07-2024 End: 12-07-[address] Marcie Barragan MD -[facility] Work Phone: Start: 12-07-2024 End: 12-07-2024 ambulatory Marcie Barragan Facility:[facility] Start: 10-08-2024 End: 10-08-[address] Guero Gant MD -Laboratory, Specimen Work Phone: Start: 10-08-2024 End: 10-08-2024 ambulatory [facility] Facility:[facility] Start: 06-20-2024 End: 06-20-2024 ambulatory [facility] Facility:[facility] Start: 06-20-2024 End: 06-20-2024 Patient encounter procedure Silvia Lopez APRN.KINESIOTHERAPIST Work Phone: [facility] Comment on above: Skin infection (Prim leonarda Dx) Start: 04-26-2024 End: 04-26-2024 ambulatory [facility] Facility:[facility] Start: 03-16-2024 End: 03-16-2024 ambulatory [facility] Facility:[facility] Start: 03-16-2024 End: 03-16-2024 Subsequent hospital visit by physician Us [facility] Work Phone: Radiology Comment on above: Abnormal mammogram [ R92.8] Start: 03-10-2024 Orders Only Milton ryan MD Work Phone: OB/Gynecology Comment on above: Abnormal mammogram ( Primary Dx) Start: 03-09-2024 Documentation procedure Mammog santino Coordinator [facility] Start: 03-09-2024 Letter encounter Mammography Coordinator [facility] Start: 03-08-2024 End: 03-08-2024 ambulatory MILTON LUJAN Facility:[facility] Start: 03-08-2024 End: 03-08-2024 Subsequent hospital visit by physician [facility] Comment on above: Encounter for screen ing mammogram for malignant neoplasm of breast [Z12.31] Start: 01-19-2024 End: 01-19-2024 ambulatory MILTON LUJAN Facility:[facility] Start: 01-19-2024 End: 01-19-2024 Patient encounter procedure Milton Lujan MD Work Phone: OB/Gynecology Comment on above: Encounter for screen ing mammogram for malignant neoplasm of breast (Primary Dx); Dense breast; Chest wall pain Start: 01-14-2024 End: 01-14-2024 ambulatory [facility] Work Phone: Start: 01-14-2024 End: 01-14-2024 Patient encounter procedure [facility] Work Phone: Start: 07-29-2023 End: 07-31-2023 ambulatory MARCIE GUTIERREZ Facility:B Start: 07-29-2023 End: 07-31-[address] ANJELICA SHI MD [facility] Start: 07-04-2023 End: 07-05-[address] GUILLERMO BUENROSTRO MD Facility:[facility] Start: 07-04-2023 End: 07-05-[address] GUILLERMO BUENROSTRO MD Facility:[facility] Start: 07-04-2023 End: 07-04-[address] ANJELICA SHI MD [facility] Start: 03-06-2023 End: 03-06-2023 Patient encounter status [facility] Start: 03-06-2023 End: 03-06-2023 Subsequent hospital visit by physician Screen Mammo [facility] Comment on above: Encounter for gyneco logical examination (general) (routine) without abnormal findings [Z01.419] Start: 10-29-2022 End: 10-29-2022 ambulatory [facility] Work Phone: Start: 10-29-2022 End: 10-29-2022 Patient encounter procedure [facility]-Outpatient Bone Densitometry Start: 09-17-2022 End: 09-17-2022 ambulatory [facility] Work Phone: Start: 09-17-2022 End: 09-17-2022 Patient encounter procedure [facility] Start: 06-18-2022 End: 06-18-2022 ambulatory [facility] Work Phone: Start: 06-18-2022 End: 06-18-2022 Patient encounter procedure [facility] Start: 03-29-2022 End: 03-29-2022 Patient encounter procedure [facility] Start: 03-05-2022 Documentation procedure Mammog santino Coordinator [facility] Start: 03-05-2022 Letter encounter Mammography Coordinator [facility] Start: 03-05-2022 End: 03-05-2022 Patient encounter status Screen [facility] M[facility] Start: 03-05-2022 End: 03-05-2022 Subsequent hospital visit by physician Screen Mammo [facility] Comment on above: Encounter for gyneco logical examination (general) (routine) without abnormal findings [Z01.419] Start: 01-22-2022 End: 01-22-2022 Patient encounter procedure [facility] Procedures Date Procedure Procedure Detail Performing Clinician Start: 02-22-2025 Dual energy X-ray absorptiometry Dr. Guero Khan MD Work Phone: Start: 12-30-[address] Guero Khan MD Work Phone: Start: 12-30-2024 Vitamin D, 25-hydrox y measurement Dr. Guero Khan MD Work Phone: Comment on above: Vitamin D StatusDefi ciency: <20 ng/mL (50nmol/L)Insufficiency: 20-30 ng/mL (50-75 nmol/L)Sufficiency: 30-100 ng/mL (75-250 nmol/L)Toxicity: >100 ng/mL (>250 nmol/L) Start: 12-07-2024 Evaluation of diagno stic study results Dr. Guero Khan MD Work Phone: Start: 10-08-2024 Gram stain microscopy hSital Khan MD Work Phone: Start: 10-08-2024 [address] micro[address] l culture Dr. Guero Khan MD Work Phone: Start: 03-16-2024 Us breast uni real t herb with image limited Milton Lujan MD Work Phone: Start: 07-29-2023 Total replacement of left knee joint DR ANJELICA SHI MD Start: 03-06-2023 Screening mammograph y [facility] yannick Lujan MD Work Phone: Start: 10-29-2022 Dual energy X-ray absorptiometry Start: 03-05-2022 End: 03-05-2022 Screening mammography bi [facility] cad Milton Lujan MD Work Phone: Start: 10-24-2016 Adult depression scr eening assessment Screen [facility] Start: 07-06-2012 Colonoscopy Screen Wst r Start: 01-05-2012 Lipid 1996 panel - S moni or Plasma Screen Wstr Arthroscopy of knee DR RA SHI MD Comment on above: BILATERAL Basal cell carcinoma of ear (disorder) DR ANJELICA SHI MD Comment on above: RIGHT Decompression of med shirley nerve DR ANJELICA SHI MD Comment on above: RIGHT Repair of musculoten dinous cuff of shoulder DR ANJELICA SHI MD Comment on above: BILATERAL Thumb structure (bod y structure) DR ANJELICA SHI MD Comment on above: BILATERAL - TENDON R EPLACEMENT Tonsillectomy DR ANJELICA NEGRO MD Trigger finger of ri ght hand (disorder) DR ANJELICA SHI MD Comment on above: THUMB Plan of Treatment Date Care Activity Detail Author Start: 03-08-2025 Screening for malign ant neoplasm of breast Mammogram Screening [facility] Start: 06-06-2024 Covid-19 Vaccine ( season) Covid-19 Vaccine ( season) [facility] Start: 06-06-2024 Influenza vaccination Influenza Vacc ine (#1) [facility] Start: 03-30-2024 End: 03-30-2024 Patient encounter procedure 03/30/2024 11:00 AM EDT Appointment Mammogram [address] [place] [address] [facility] Mammogram Comment on above: COMP CB LT Start: 03-06-2024 Mammography Mammogram Screening [facility] Start: 03-06-2024 Screening for malign ant neoplasm of breast Mammogram Screening [facility] Start: 11-01-2023 Covid-19 Vaccine ( season) Covid-19 Vaccine () [facility] Start: 10-06-2023 Advance Directive Discussion Advance Directive Discussion [facility] Start: 10-06-2023 Behavioral Health Screening Behavioral Health Screening [facility] Start: 06-06-2023 Covid-19 Vaccine () Covid-19 Vaccine () [facility] Start: 06-06-2023 Influenza vaccination Influenza Vacc ine (#1) [facility] Start: 03-05-2023 Mammography MAMMOGRAM [facility] Start: 10-06-2022 Advance Directive Discussion Advance Directive Discussion [facility] Start: 10-06-2022 Depression Assessment Depression Ass essment [facility] Start: 06-06-2022 Influenza vaccination INFLUENZ A (Season Ended) [facility] Start: 12-08-2021 COVID-19 VACCINE (4 - Booster for Pfizer series) COVID-19 VACCINE (4 - Booster for Pfizer series) [facility] Start: 10-06-2021 ADVANCE DIRECTIVE DISCUSSION ADVANCE DIRECTIVE DISCUSSION [facility] Start: 10-07-2020 PNEUMOCOCCAL: 65+ (2 - PPSV23 or PCV20) PNEUMOCOCCAL: 65+ (2 - PPSV23 or PCV20) [facility] Start: 08-08-2019 DIABETES SCREEN [facility] Start: 08-08-2019 Diabetes Screening Diabetes Screenin g [facility] Start: 2019 BONE DENSITY BONE DENSITY [facility] Start: 2019 Bone Density Screening Bone Density Screening [facility] Start: 2019 Screening for osteoporosis Bone Density Screening [facility] Start: 12-03-2017 Urine microalbumin profile [facility] Start: 10-24-2017 Adult depression screening assessment DEPRESSION SCREENING [facility] Start: 01-04-2017 Lipid 1996 panel - S moni or Plasma Lipid Screening [facility] Start: 01-04-2017 Lipid panel Lipid Screening [facility] Start: 01-04-2017 LIPID SCREEN LIPID SCREEN [facility] Start: 07-06-2015 Colonoscopy COLONOSCOPY [facility] Start: 07-06-2015 COLORECTAL CANCER SCREENING COLORECTAL CANCER SCREENING [facility] Start: 07-06-2015 Screening for malign ant neoplasm of colon [facility] Start: 2014 RSV Vaccine (1 - 1-d ose 60+ series) RSV Vaccine (1 - 1-dose 60+ series) [facility] Start: 04-22-2014 End: 04-22-2014 Radex hand minimum 3 views X-Ray, Hand [facility] Work Phone: Start: 1999 COLOGUARD (FIT-DNA) COLOGUARD (FIT-D NA) [facility] Start: [address] COLONOGRAPHY [facility] Start: 1999 FECAL OCCULT BLOOD FECAL OCCULT BLOO D [facility] Start: 1999 Screening for malign ant neoplasm of colon [facility] Start: 1999 SIGMOIDOSCOPY SIGMOIDOSCOPY [facility] Start: 1972 ANNUAL PCP TEAM ANTIQUE FINISHER TORI DISEASE VISIT ANNUAL PCP TEAM CHRONIC DISEASE VISIT [facility] Start: 1972 Anxiety Screening Anxiety Screening [facility] Start: 1972 Depression Screening Depression Scre ening [facility] Start: 1972 HEPATITIS C SCREENING HEPATITIS C [facility] Start: 1972 Hepatitis C screening Hepatitis C [facility] Start: 1972 SPIROMETRY SPIROMETRY [facility] End: 02-17-2025 DBT Breast - bilateral screening CHET SCREENING [facility] Radiology Routine Encounter for screening mammogram for malignant neoplasm of breast Dense breast 1 Occurrences starting 01/19/2024 until 02/17/2025 [facility] Work Phone: Comment on above: 1 Occurrences starti ng 01/19/2024 until 02/17/2025 DBT Breast - bilater al screening CHET SCREENING W [facility] Radiology Routine Encounter for screening mammogram for malignant neoplasm of breast Dense breast 03/08/2024 8:31 AM EDT [facility] Work Phone: End: 04-09-2025 MG Breast - left Diagnostic for implant CHET DIAGNOSTIC LEFT Radiology Routine Abnormal mammogram 1 Occurrences starting 03/10/2024 until 04/09/2025 [facility] Work Phone: Comment on above: 1 Occurrences starti ng 03/10/2024 until 04/09/2025 Patient referral [facility] Work Phone: End: 04-09-2025 US Breast - left limited US BREAST LTD LEFT Radiology Routine Abnormal mammogram 1 Occurrences starting 03/10/2024 until 04/09/2025 [facility] Comment on above: 1 Occurrences starti ng 03/10/2024 until 04/09/2025 [facility] Immunizations Immunization Date Immunization Notes Care Provider Lorraine alexander 07-24-2023 influenza virus vacc ine, unspecified formulation Silvia Lopez APRN.[facility] Work Phone: [facility] 08-06-2022 influenza virus vacc ine, unspecified formulation Screen [facility] 12-31-2020 COVID-19 vaccine, ag e 12+ yr (PFIZER-BIONTECH - PURPLE TOP) Screen [facility] Work Phone: 12-10-2020 COVID-19 vaccine, ag e 12+ yr (PFIZER-BIONTECH - PURPLE TOP) Screen [facility] Work Phone: 10-18-2020 zoster vaccine recombinant Screen [facility] Work Phone: 04-17-2020 zoster vaccine recombinant Screen [facility] Work Phone: 10-07-2019 pneumococcal conjuga te vaccine, 13 valent Screen [facility] Work Phone: 09-21-2014 zoster vaccine, live Screen [facility] Work Phone: 12-02-2012 typhoid capsular polysaccharide vaccine Screen [facility] Work Phone: 12-04-2007 tetanus toxoid, redu toña diphtheria toxoid, and acellular pertussis vaccine, adsorbed Screen [facility] Work Phone: 12-04-2007 typhoid capsular polysaccharide vaccine Screen [facility] Work Phone: 10-14-2005 typhoid capsular polysaccharide vaccine Screen [facility] Work Phone: 10-14-2005 yellow fever vaccine Screen [facility] Work Phone: 04-02-2004 hepatitis A vaccine, adult dosage Screen [facility] Work Phone: 10-03-2003 hepatitis A vaccine, pediatric/adolescent dosage, 2 dose schedule Screen [facility] Work Phone: 10-03-2003 poliovirus vaccine, inactivated Screen [facility] Work Phone: 10-03-2003 typhoid capsular polysaccharide vaccine Screen [facility] Work Phone: 03-29-1997 TD(adult) unspecifie d formulation Screen [facility] Work Phone: 10-06-1990 hepatitis B vaccine, adult dosage Screen [facility] Work Phone: Payers Date Payer Category Payer Self-pay [id number] 2019 Medicare MEDICARE MEDICAR E A AND B [id number] 2019-Present [phone] [place] [address] Medicare [id number] 2019 Medicare MEDICARE MEDICAR E A AND B [id number] 2019-Present [phone] [place] [address] Medicare [id number] 2019 Unknown SHAN TORREZ ME DICARE SUPPLEMENT [id number] 2019-Present [phone] [address] [place] [address] Indemnity [id number] 2019 Unknown ANTHEM ANTHEM ME DICARE SUPPLEMENT [id number] 2019-Present [phone] [address] [place] [address] Indemnity [id number] 2019 Medicare [id number] 2019 Unknown [id number] 2016 Unknown [id number] 1954 Unknown [id number] 1954 Unknown [id number] 1954 Unknown [id number] Unknown [id number] Unknown [id number] Unknown [id number] Unknown [id number] Unknown [id number] Unknown [id number] Unknown [id number] Unknown [id number] Social History Date Type Detail Facility Start: 04-30-2021 End: 04-30-2021 Tobacco smoking status NHIS Unknown if ever smoked [facility] Start: 1955 Sex Assigned At Female C [facility] Work Phone: Start: 04-30-2021 End: 07-04-2023 Tobacco smoking status NHIS Never smoked tobacco [facility] Work Phone: Start: 10-18-2021 End: 06-20-2024 Alcohol intake Current drinker of alcohol (finding) [facility] Start: 09-10-2020 End: 10-18-2021 Alcohol intake [facility] Sex Assigned At Sex [facility] Start: 07-11-2014 Tobacco use and exposure Smokeless tobacco non-user [facility] Start: 09-10-2020 End: 04-30-2022 Tobacco use panel [facility] National Score (1-10 0), lower number is lower risk Not on file [facility] Start: 02-17-2020 Gender identity Identifies as female gender (finding) [facility] Work Phone: Start: 02-17-2020 Sexual orientation Heterosexual (fin ding) [facility] Work Phone: Start: 01-03-2025 End: 01-03-2025 Sex Female (finding) [facility] Functional Status Date Assessment Result Facility 07-31-2023 Functional Status Other: [id number] [facility] 07-31-2023 Functional Status Door open, Room check performed [facility] 07-31-2023 Functional Status [facility] 07-31-2023 Functional Status [facility] 07-30-2023 Functional Status [facility] 07-30-2023 Functional Status [facility] 07-30-2023 Functional Status Dinner Percent 50 [facility] 07-30-2023 Functional Status Independent [facility] 07-30-2023 Functional Status [facility] 07-30-2023 [facility] Functional Status Multilevel yoana e, 2nd floor bedroom, 2nd floor bathroom [facility] 07-29-2023 Functional Status ice chips and sips take n [facility] 07-29-2023 Functional Status [facility] Mental Status Date Assessment Result Facility 07-31-2023 Mental Status Orientation Asse ssment Oriented x 4 [facility] 07-31-2023 Mental Status Oriented x 4 [facility] 07-31-2023 Mental Status [facility] 07-31-2023 Mental Status [facility] Clinical Notes 08-24-2021 to 12-07-2024 Note Date & Type Note Facility 12-07-2024 Evaluation note Diagnosis Onset Date Resolution Near syncope acute December 07, 025 2:26pm Hypertension chronic December 07 2:26pm Mixed hyperlipidemia chronic Rj h 2024 2:26pm [facility] Work Phone: 1(909) 928-626209-15-2024 NoteHNO ID: [id number] Author: SILVIA LOPEZ APRN.KINESIOTHERAPIST Service: ? Author Type: Nurse Practitioner Type: Progress Notes Filed: 06/20/2024 15:02 Note Text: Subjective Patient came in with complaints of possible skin infection. Patient says she had a biopsy done on the . Patient said today she woke up and noticed some redness around the area. Patient denies any fever chills nausea vomiting. The history is provided by the patient. No manager language was used. Review of Systems Constitutional: Negative. Skin: Negative. Objective Physical Exam Constitutional: Appearance: Normal appearance. Pulmonary: Effort: Pulmonary effort is normal. Musculoskeletal: Hands: Comments: Red area stevenson where the biopsy was taken. Blue area stevenson where there is redness around it. No drainage noted. Neurological: Mental Status: She is alert. PAST MEDICAL HISTORY Diagnosis Date Basal cell carcinoma 2009 right ear Exercise-induced asthma Fracture of unspecified bones 2006 right distal radius PUD (peptic ulcer disease) PAST SURGICAL HISTORY Procedure Laterality Date ADENOIDECTOMY PRIMARY Adenoidectomy ARTHRP INTERPOS INTERCARPAL/METACARPAL JOINTS Right 09/06/2016 [facility] arthroplasty with LRTI ARTHRS KNE SURG W/MENISCECTOMY MED/LAT W/SHVG Left 04/15/2018 Left knee arthroscopic medial and lateral menisectomies, medial and PF chondroplasties LAPAROSCOPY SURG CHOLECYSTECTOMY 08/04/2012 Cholecystectomy, lap PAST SURGICAL HISTORY OF Left 01/2013 arthroscopic left knee, menisectomy by Dr. Chase PAST SURGICAL HISTORY OF Right open rotator cuff right shoulder PAST SURGICAL HISTORY OF Right carpal tunnel PAST SURGICAL HISTORY OF Bilateral bilateral shoulder scopesd TONSILLECTOMY PRIMARY/SECONDARY Tonsillectomy TOTAL KNEE REPLACEMENT Left 07/2023 ALLERGIES Compazine [Prochlorperazine], Erythromycin, Ciprofloxacin, Iodine, and Penicillins MEDICATIONS denosumab (PROLIA) 60 mg/mL Inject 60 mg subcutaneously one time only. Every 6 months beclomethasone dipropionate (QVAR INHALATION) Inhale as instructed every other day. levothyroxine (SYNTHROID) 75 mcg tablet Take 37 mcg by mouth daily before breakfast. dupilumab (DUPIXENT PEN) 300 mg/2 mL pen Inject subcutaneously every 2 weeks. fluticasone propionate (FLONASE NASAL) Use in the nose. cyanocobalamin, vitamin B-12, (B-12 DOTS ORAL) Take by mouth. esomeprazole (NEXIUM) 20 mg capsule Take 20 mg by mouth DAILY (6 AM). naproxen (NAPROSYN) 500 mg tablet Take 500 mg by mouth twice daily with meals. as needed for pain Palmer-3 Fatty Acids-Vitamin E (FISH OIL) 1,000 mg cap Take 1 capsule by mouth. TRIAMCINOLONE ACETONIDE 55 mcg nasal inhaler once daily. Switch on and off with flonase AMMONIUM LACTATE 12 % LOTION bid at affected areas SINGULAIR 10 MG TAB Take one(1) tablet daily at bedtime. pravastatin (PRAVACHOL) 10 mg tablet Take 10 mg by mouth once daily. (Patient not taking: Reported on 06/20/2024) desloratadine (CLARINEX) 5 mg tablet (Patient not taking: Reported on 06/20/2024) FAMILY HISTORY Problem Relation Age of Onset Cancer Mother colon, DM, breast cancer, heart arrhythmia Diabetes Mother Breast Cancer Mother late 60's Coronary Artery Disease Father CABG x 2 Allergies Father Prostate Cancer Father Cancer Father scc Diabetes Brother Heart Brother Diabetes Brother Hypertension Brother Heart Brother Social History Tobacco Use Smoking status: Never Smokeless tobacco: Never Vaping Use Vaping status: Never Used Substance Use Topics Alcohol use: Yes Alcohol/week: 3.0 standard drinks of alcohol Types: 3 Glasses of Wine (5oz) per week Drug use: No ASSESSMENT/PLAN: 1. Skin infection - ICD9: 686.9, ICD10: L08.9 - CEPHALEXIN 500 MG CAPSULE Patient was educated about proper use of medication and supportive therapies. Patient requested Keflex. Did educate patient on red flag symptoms to watch for and if anything occurs she needs to go to the ER. Patient will call her surgeon tomorrow who did the biopsy and let them know what is going on. Patient was okay with this care plan. [facility] History of Present illness Narrative* Silvia Lopez APRN.[facility] - 06/20/2024 3:00 PM EDT Images from the original note were not included. Subjective Patient came in with complaints of possible skin infection. Patient says she had a biopsy done on the . Patient said today she woke up and noticed some redness around the area. Patient denies any fever chills nausea vomiting. The history is provided by the patient. No manager language was used. Review of Systems Constitutional: Negative. Skin: Negative. Objective Physical Exam Constitutional: Appearance: Normal appearance. Pulmonary: Effort: Pulmonary effort is normal. Musculoskeletal: Hands: Comments: Red area stevenson where the biopsy was taken. Blue area stevenson where there is redness around it. No drainage noted. Neurological: Mental Status: She is alert. PAST MEDICAL HISTORY Diagnosis Date Basal cell carcinoma 2009 right ear Exercise-induced asthma Fracture of unspecified bones 2006 right distal radius PUD (peptic ulcer disease) PAST SURGICAL HISTORY Procedure Laterality Date ADENOIDECTOMY PRIMARY <AGE 11 Adenoidectomy ARTHRP INTERPOS INTERCARPAL/METACARPAL JOINTS Right 09/06/2016 [facility] arthroplasty with LRTI ARTHRS KNE SURG W/MENISCECTOMY MED/LAT W/SHVG Left 04/15/2018 Left knee arthroscopic medial and lateral menisectomies, medial and PF chondroplasties LAPAROSCOPY SURG CHOLECYSTECTOMY 08/04/2012 Cholecystectomy, lap PAST SURGICAL HISTORY OF Left 01/2013 arthroscopic left knee, menisectomy by Dr. Chase PAST SURGICAL HISTORY OF Right open rotator cuff right shoulder PAST SURGICAL HISTORY OF Right carpal tunnel PAST SURGICAL HISTORY OF Bilateral bilateral shoulder scopesd TONSILLECTOMY PRIMARY/SECONDARY <AGE 11 Tonsillectomy TOTAL KNEE REPLACEMENT Left 07/2023 ALLERGIES Compazine [Prochlorperazine], Erythromycin, Ciprofloxacin, Iodine, and Penicillins MEDICATIONS denosumab (PROLIA) 60 mg/mL Inject 60 mg subcutaneously one time only. Every 6 months beclomethasone dipropionate (QVAR INHALATION) Inhale as instructed every other day. levothyroxine (SYNTHROID) 75 mcg tablet Take 37 mcg by mouth daily before breakfast. dupilumab (DUPIXENT PEN) 300 mg/2 mL pen Inject subcutaneously every 2 weeks. fluticasone propionate (FLONASE NASAL) Use in the nose. cyanocobalamin, vitamin B-12, (B-12 DOTS ORAL) Take by mouth. esomeprazole (NEXIUM) 20 mg capsule Take 20 mg by mouth DAILY (6 AM). naproxen (NAPROSYN) 500 mg tablet Take 500 mg by mouth twice daily with meals. as needed for pain Palmer-3 Fatty Acids-Vitamin E (FISH OIL) 1,000 mg cap Take 1 capsule by mouth. TRIAMCINOLONE ACETONIDE 55 mcg nasal inhaler once daily. Switch on and off with flonase AMMONIUM LACTATE 12 % LOTION bid at affected areas SINGULAIR 10 MG TAB Take one(1) tablet daily at bedtime. pravastatin (PRAVACHOL) 10 mg tablet Take 10 mg by mouth once daily. (Patient not taking: Reported on 06/20/2024) desloratadine (CLARINEX) 5 mg tablet (Patient not taking: Reported on 06/20/2024) FAMILY HISTORY Problem Relation Age of Onset Cancer Mother colon, DM, breast cancer, heart arrhythmia Diabetes Mother Breast Cancer Mother late 60's Coronary Artery Disease Father CABG x 2 Allergies Father Prostate Cancer Father Cancer Father scc Diabetes Brother Heart Brother Diabetes Brother Hypertension Brother Heart Brother Social History Tobacco Use Smoking status: Never Smokeless tobacco: Never Vaping Use Vaping status: Never Used Substance Use Topics Alcohol use: Yes Alcohol/week: 3.0 standard drinks of alcohol Types: 3 Glasses of Wine (5oz) per week Drug use: No ASSESSMENT/PLAN: 1. Skin infection - ICD9: 686.9, ICD10: L08.9 - CEPHALEXIN 500 MG CAPSULE Patient was educated about proper use of medication and supportive therapies. Patient requested Keflex. Did educate patient on red flag symptoms to watch for and if anything occurs she needs to go tot ER. Patient will call her surgeon tomorrow who did the biopsy and let them know what is going on. Patient was okay with this care plan. Silvia Lopez APRN.CNP documented [facility] History of Present illness Narrative* Bernarda Dozier RDMS - 03/16/2024 11:30 AM EDT Radiology Service Progress Note PATIENT NAME: Marissa Marvin DATE OF SERVICE: March 16, 2024 TIME: 2:10 PM PATIENT IDENTITY VERIFICATION COMPLETED USING TWO (2) IDENTIFIERS: Name and Date of confirmedby patient verbally. FALL SCREENING: Has the patient had 2 falls in the last year or 1 fall with injury or currently using an Ambulatory Assistive Device (Walker, Cane, Wheelchair, Crutches, etc.)? No PATIENT GENDER DATA: Female. status: : No status: NO. PATIENT RELEVANT IMPLANT DATA REVIEWED: Not Applicable PATIENT PRESENTS WITH AN IMPLANTABLE OR ATTACHED RIVET PASSER: No RADIOLOGY DEPARTMENT: Ultrasound PERIPHERAL IV DATA: Not applicable SIGNED BY: Bernarda Dozier RDMS March 16, 2024 2:10 PM documented in this encounterBlanch[facility]06[facility]24 NoteHNO ID: [id number] Author: BERNARDA DOZIER RDMS Service: ? Author Type: Carrier Operator Type: Progress Notes Filed: 03/16/2024 14:10 Note Text: Radiology Service Progress Note PATIENT NAME: Marissa Marvin DATE OF SERVICE: March 16, 2024 TIME: 2:10 PM PATIENT IDENTITY VERIFICATION COMPLETED USING TWO (2) IDENTIFIERS: Name and Date of confirmed by patient verbally. FALL SCREENING: Has the patient had 2 falls in the last year or 1 fall with injury or currently using an Ambulatory Assistive Device (Walker, Cane, Wheelchair, Crutches, etc.)? No PATIENT GENDER DATA: Female. status: : No status: NO. PATIENT RELEVANT IMPLANT DATA REVIEWED: Not Applicable PATIENT PRESENTS WITH AN IMPLANTABLE OR ATTACHED RIVET PASSER: No RADIOLOGY DEPARTMENT: Ultrasound PERIPHERAL IV DATA: Not applicable SIGNED BY: Bernarda Dozier RDMS March 16, 2024 2:10 [facility]06-04-2024 Note* Letter - Coordinator, Mammography - 03/09/2024 4:59 PM EDT March 09, 2024 PID: [id number] Marissa Marvin [address] [place] [address] Dear Ms. Marvin, Your recent breast imaging exam on 03/08/2024 showed a possible finding that requires additional imaging studies for a complete evaluation. Most such findings are probably benign (not cancer). Your mammogram demonstrates that you have dense breast tissue, which could hide abnormalities. Dense breast tissue, in and of itself, is a relatively common condition. Therefore, this information is not provided to cause undue concern; rather, it is to raise your awareness and promote discussion with your health care provider regarding the presence of dense breast tissue in addition to other riskfactors. If you have a healthcare provider who ordered/prescribed your screening mammogram: Please call [phone] or EXT: [phone] to schedule an appointment for your additional imaging (if youhave not already done so). If you DO NOT have a healthcare provider (ie you did not have an order/prescription for your screening mammogram): Please call to schedule an appointment for your additional imaging (if you have not already done so). You must have an order/prescription from your physician when calling to schedule your appointment. If your order/prescription is not electronic, you must bring the hard copy with you on the day of your exam to avoid delays. Your imaging studies and reports are kept on file at [facility] as part of your permanent medical record, and are available for your continuing care. Thank you for allowing us to help in meeting your health care needs. Sincerely, Dr. Meza Interpreting Radiologist [facility] (Additional imaging) [facility]06-04-2024 Miscellaneous Notes* Letter - Coordinator, Mammography - 03/09/2024 4:59 PM EDT March 09, 2024 PID: [id number] Marissa Vieira Yon [address] [place] [address] Dear Ms. Marvin, Your recent breast imaging exam on 03/08/2024 showed a possible finding that requires additional imaging studies for a complete evaluation. Most such findings are probably benign (not cancer). Your mammogram demonstrates that you have dense breast tissue, which could hide abnormalities. Dense breast tissue, in and of itself, is a relatively common condition. Therefore, this information is not provided to cause undue concern; rather, it is to raise your awareness and promote discussion with your health care provider regarding the presence of dense breast tissue in addition to other riskfactors. If you have a healthcare provider who ordered/prescribed your screening mammogram: Please call [phone] or EXT: [phone] to schedule an appointment for your additional imaging (if youhave not already done so). If you DO NOT have a healthcare provider (ie you did not have an order/prescription for your screening mammogram): Please call to schedule an appointment for your additional imaging (if you have not already done so). You must have an order/prescription from your physician when calling to schedule your appointment. If your order/prescription is not electronic, you must bring the hard copy with you on the day of your exam to avoid delays. Your imaging studies and reports are kept on file at [facility] as part of your permanent medical record, and are available for your continuing care. Thank you for allowing us to help in meeting your health care needs. Sincerely, Dr. Meza Interpreting Radiologist [facility] (Additional imaging) documented in this encounterBlanchard Valley [facility]06-03-[facility] History of Present illness Narrative* Kriss Villalpando Mammo Tech - 03/08/2024 7:50 AM EDT Radiology Service Progress Note PATIENT NAME: Marissa Marvin DATE OF SERVICE: March 08, 2024 TIME: 8:31 AM PATIENT IDENTITY VERIFICATION COMPLETED USING TWO (2) IDENTIFIERS: Name and Date of confirmedby patient verbally. FALL SCREENING: Has the patient had 2 falls in the last year or 1 fall with injury or currently using an Ambulatory Assistive Device (Walker, Cane, Wheelchair, Crutches, etc.)? No PATIENT GENDER DATA: Female. status: : No status: NO. PATIENT RELEVANT IMPLANT DATA REVIEWED: Not Applicable PATIENT PRESENTS WITH AN IMPLANTABLE OR ATTACHED RIVET PASSER: No RADIOLOGY DEPARTMENT: Mammography PERIPHERAL IV DATA: Not applicable SIGNED BY: Maisha Downeyo Bernardo March 08, 2024 8:31 AM * Kriss Villalpando Mammo Tech - 03/08/2024 7:50 AM EDT Radiology Service Progress Note PATIENT NAME: Marissa Marvin DATE OF SERVICE: March 08, 2024 TIME: 8:33 AM PATIENT IDENTITY VERIFICATION COMPLETED USING TWO (2) IDENTIFIERS: Name and Date of confirmedby patient verbally. FALL SCREENING: Has the patient had 2 falls in the last year or 1 fall with injury or currently using an Ambulatory Assistive Device (Walker, Cane, Wheelchair, Crutches, etc.)? No PATIENT GENDER DATA: Female. status: : No status: NO. PATIENT RELEVANT IMPLANT DATA REVIEWED: Not Applicable PATIENT PRESENTS WITH AN IMPLANTABLE OR ATTACHED RIVET PASSER: No RADIOLOGY DEPARTMENT: Mammography PERIPHERAL IV DATA: Not applicable SIGNED BY: Maisha Downeyo Bernardo March 08, 2024 8:33 AM documented in this encounterBlanch[facility]06-[facility]24 NoteHNO ID: [id number] Author: KRISS VILLALPANDO Mammo Tech Service: ? Author Type: Carrier Operator Type: Progress Notes Filed: 03/08/2024 08:33 Note Text: Radiology Service Progress Note PATIENT NAME: Marissa Marvin DATE OF SERVICE: March 08, 2024 TIME: 8:33 AM PATIENT IDENTITY VERIFICATION COMPLETED USING TWO (2) IDENTIFIERS: Name and Date of confirmed by patient verbally. FALL SCREENING: Has the patient had 2 falls in the last year or 1 fall with injury or currently using an Ambulatory Assistive Device (Walker, Cane, Wheelchair, Crutches, etc.)? No PATIENT GENDER DATA: Female. status: : No status: NO. PATIENT RELEVANT IMPLANT DATA REVIEWED: Not Applicable PATIENT PRESENTS WITH AN IMPLANTABLE OR ATTACHED RIVET PASSER: No RADIOLOGY DEPARTMENT: Mammography PERIPHERAL IV DATA: Not applicable SIGNED BY: Margoth Downey March 08, 2024 8:33 [facility]06-03-2024 NoteHNO ID: [id number] Author: KRISS VILLALPANDO Mammo Tech Service: ? Author Type: Carrier Operator Type: Progress Notes Filed: 03/08/2024 08:31 Note Text: Radiology Service Progress Note PATIENT NAME: Marissa Marvin DATE OF SERVICE: March 08, 2024 TIME: 8:31 AM PATIENT IDENTITY VERIFICATION COMPLETED USING TWO (2) IDENTIFIERS: Name and Date of confirmed by patient verbally. FALL SCREENING: Has the patient had 2 falls in the last year or 1 fall with injury or currently using an Ambulatory Assistive Device (Walker, Cane, Wheelchair, Crutches, etc.)? No PATIENT GENDER DATA: Female. status: : No status: NO. PATIENT RELEVANT IMPLANT DATA REVIEWED: Not Applicable PATIENT PRESENTS WITH AN IMPLANTABLE OR ATTACHED RIVET PASSER: No RADIOLOGY DEPARTMENT: Mammography PERIPHERAL IV DATA: Not applicable SIGNED BY: Margoth Downey March 08, 2024 8:31 [facility]04-15-2024 NoteHNO ID: [id number] Author: MILTON LUJAN MD Service: ? Author Type: Physician Type: Progress Notes Filed: 01/19/2024 11:45 Note Text: Marissa Marvin is a 68 year old female who presents for problem visit for c/o pain left side of chest wall near outer breast margin. Noted it about a week ago, felt some discocomfort and felt under axilla and noted a small nodule. It was not mobile and it was tender. [place] like it was more on the chest wall and maybe a little bit at the edge of the breast itself. Today she notes that the pain is gone and there is no longer a lump there but she went to come in for a breast exam. She denies any trauma to the area. No nipple discharge.. HPI: 68 YOF presents OB History T0 L0 SAB0 IAB0 Ectopic0 Multiple0 Live Births0 Comment: Age at menarche 13. Menopause 43. LMP 1998 Freezer Assistant History LMP: Postmenopausal Age at Menarche: Age at First : Age at Menopause: Freezer Assistant History Comments: Sexual Activity: Yes; Male; vasectomy Contraception: Vasectomy PAST MEDICAL HISTORY Diagnosis Date Basal cell carcinoma 2009 right ear Exercise-induced asthma Fracture of unspecified bones 2006 right distal radius PUD (peptic ulcer disease) PAST SURGICAL HISTORY Procedure Laterality Date ADENOIDECTOMY PRIMARY Adenoidectomy ARTHRP INTERPOS INTERCARPAL/METACARPAL JOINTS Right 09/06/2016 [facility] arthroplasty with LRTI ARTHRS KNE SURG W/MENISCECTOMY MED/LAT W/SHVG Left 04/15/2018 Left knee arthroscopic medial and lateral menisectomies, medial and PF chondroplasties LAPAROSCOPY SURG CHOLECYSTECTOMY 08/04/2012 Cholecystectomy, lap PAST SURGICAL HISTORY OF Left 01/2013 arthroscopic left knee, menisectomy by Dr. Chase PAST SURGICAL HISTORY OF Right open rotator cuff right shoulder PAST SURGICAL HISTORY OF Right carpal tunnel PAST SURGICAL HISTORY OF Bilateral bilateral shoulder scopesd TONSILLECTOMY PRIMARY/SECONDARY Tonsillectomy TOTAL KNEE REPLACEMENT Left 07/2023 FAMILY HISTORY Problem Relation Age of Onset Cancer Mother colon, DM, breast cancer, heart arrhythmia Diabetes Mother Breast Cancer Mother late 60's Coronary Artery Disease Father CABG x 2 Allergies Father Prostate Cancer Father Cancer Father scc Diabetes Brother Heart Brother Diabetes Brother Hypertension Brother Heart Brother Social History Tobacco Use Smoking status: Never Smokeless tobacco: Never Vaping Use Vaping Use: Never used Substance Use Topics Alcohol use: Yes Alcohol/week: 3.0 standard drinks of alcohol Types: 3 Glasses of Wine (5oz) per week Drug use: No Current Outpatient Medications Medication Sig pravastatin (PRAVACHOL) 10 mg tablet Take 10 mg by mouth once daily. beclomethasone dipropionate (QVAR INHALATION) Inhale as instructed every other day. levothyroxine 25 mcg cap Take 25 mcg by mouth daily before breakfast. dupilumab (DUPIXENT PEN) 300 mg/2 mL pen Inject subcutaneously every 2 weeks. desloratadine (CLARINEX) 5 mg tablet fluticasone propionate (FLONASE NASAL) Use in the nose. cyanocobalamin, vitamin B-12, (B-12 DOTS ORAL) Take by mouth. esomeprazole (NEXIUM) 20 mg capsule Take 20 mg by mouth DAILY (6 AM). naproxen (NAPROSYN) 500 mg tablet Take 500 mg by mouth twice daily with meals. as needed for pain Palmer-3 Fatty Acids-Vitamin E (FISH OIL) 1,000 mg cap Take 1 capsule by mouth. TRIAMCINOLONE ACETONIDE 55 mcg nasal inhaler once daily. Switch on and off with flonase AMMONIUM LACTATE 12 % LOTION bid at affected areas SINGULAIR 10 MG TAB Take one(1) tablet daily at bedtime. No current facility-administered medications for this visit. Allergies As of Date: 01/19/2024 Allergen Noted Reaction COMPAZINE [PROCHLORPERAZINE] 10/17/2008 Intolerance ERYTHROMYCIN 10/17/2008 Vomiting CIPROFLOXACIN 07/31/2012 Rash IODINE 09/06/2016 Rash PENICILLINS 11/27/2005 Unknown Fully Assessed 01/19/2024 Allergies and current medication updated:Yes EXAM: BP 110/68 Wt 155 lb (70.3kg) GENERAL: pleasant, female in no apparent distress BREAST: soft, non-tender, symmetric, no dominant mass, normal nipple-areolar complex, no lymphadenopathy, no nipple discharge, and there expection of the chest wall and breast edge in the area of concern under the left axilla do not reveal any nodules or concerns. Symmetrical to the right side. C ASSESSMENT AND PLAN: Chest wall nodule and pain, now resolved. Discussed with the patient may have been a lymph node or small infected skin gland. At this point keep routine mammogram appointment in March as would be normally recommended. However if any recurrent issues please notify the office and we be happy to work her in to reevaluate. Patient is comfortable with this plan. Milton Lujan, [facility]04-15-2024 History of Present illness Narrative* Milton Lujan MD - 01/19/2024 9:27 AM EDT Marissa Marvin is a 68 year old female who presents for problem visit for c/o pain left side of chest wall near outer breast margin. Noted it about a week ago, felt some discocomfort and felt underaxilla and noted a small nodule. It was not mobile and it was tender. [place] like it was more on the chest wall and maybe a little bit at the edge of the breast itself. Today she notes that the pain isgone and there is no longer a lump there but she went to come in for a breast exam. She denies any trauma to the area. No nipple discharge.. HPI: 68 YOF presents OB History T0 L0 SAB0 IAB0 Ectopic0 Multiple0 Live Births0 Comment: Age at menarche 13. Menopause 43. LMP 1998 Freezer Assistant History LMP: Postmenopausal Age at Menarche: Age at First : Age at Menopause: Freezer Assistant History Comments: Sexual Activity: Yes; Male; vasectomy Contraception: Vasectomy PAST MEDICAL HISTORY Diagnosis Date Basal cell carcinoma 2009 right ear Exercise-induced asthma Fracture of unspecified bones 2006 right distal radius PUD (peptic ulcer disease) PAST SURGICAL HISTORY Procedure Laterality Date ADENOIDECTOMY PRIMARY <AGE 11 Adenoidectomy ARTHRP INTERPOS INTERCARPAL/METACARPAL JOINTS Right 09/06/2016 CMC arthroplasty with LRTI ARTHRS KNE SURG W/MENISCECTOMY MED/LAT W/SHVG Left 04/15/2018 Left knee arthroscopic medial and lateral menisectomies, medial and PF chondroplasties LAPAROSCOPY SURG CHOLECYSTECTOMY 08/04/2012 Cholecystectomy, lap PAST SURGICAL HISTORY OF Left 01/2013 arthroscopic left knee, menisectomy by Dr. Chase PAST SURGICAL HISTORY OF Right open rotator cuff right shoulder PAST SURGICAL HISTORY OF Right carpal tunnel PAST SURGICAL HISTORY OF Bilateral bilateral shoulder scopesd TONSILLECTOMY PRIMARY/SECONDARY <AGE 11 Tonsillectomy TOTAL KNEE REPLACEMENT Left 07/2023 FAMILY HISTORY Problem Relation Age of Onset Cancer Mother colon, DM, breast cancer, heart arrhythmia Diabetes Mother Breast Cancer Mother late 60's Coronary Artery Disease Father CABG x 2 Allergies Father Prostate Cancer Father Cancer Father scc Diabetes Brother Heart Brother Diabetes Brother Hypertension Brother Heart Brother Social History Tobacco Use Smoking status: Never Smokeless tobacco: Never Vaping Use Vaping Use: Never used Substance Use Topics Alcohol use: Yes Alcohol/week: 3.0 standard drinks of alcohol Types: 3 Glasses of Wine (5oz) per week Drug use: No Current Outpatient Medications Medication Sig pravastatin (PRAVACHOL) 10 mg tablet Take 10 mg by mouth once daily. beclomethasone dipropionate (QVAR INHALATION) Inhale as instructed every other day. levothyroxine 25 mcg cap Take 25 mcg by mouth daily before breakfast. dupilumab (DUPIXENT PEN) 300 mg/2 mL pen Inject subcutaneously every 2 weeks. desloratadine (CLARINEX) 5 mg tablet fluticasone propionate (FLONASE NASAL) Use in the nose. cyanocobalamin, vitamin B-12, (B-12 DOTS ORAL) Take by mouth. esomeprazole (NEXIUM) 20 mg capsule Take 20 mg by mouth DAILY (6 AM). naproxen (NAPROSYN) 500 mg tablet Take 500 mg by mouth twice daily with meals. as needed for pain Palmer-3 Fatty Acids-Vitamin E (FISH OIL) 1,000 mg cap Take 1 capsule by mouth. TRIAMCINOLONE ACETONIDE 55 mcg nasal inhaler once daily. Switch on and off with flonase AMMONIUM LACTATE 12 % LOTION bid at affected areas SINGULAIR 10 MG TAB Take one(1) tablet daily at bedtime. No current facility-administered medications for this visit. Allergies As of Date: 01/19/2024 Allergen Noted Reaction COMPAZINE [PROCHLORPERAZINE] 10/17/2008 Intolerance ERYTHROMYCIN 10/17/2008 Vomiting CIPROFLOXACIN 07/31/2012 Rash IODINE 09/06/2016 Rash PENICILLINS 11/27/2005 Unknown Fully Assessed 01/19/2024 Allergies and current medication updated:Yes EXAM: BP 110/68 Wt 155 lb (70.3kg) GENERAL: pleasant, female in no apparent distress BREAST: soft, non-tender, symmetric, no dominant mass, normal nipple-areolar complex, no lymphadenopathy, no nipple discharge, and there expection of the chest wall and breast edge in the area of concern under the left axilla do not reveal any nodules or concerns. Symmetrical to the right side. C ASSESSMENT AND PLAN: Chest wall nodule and pain, now resolved. Discussed with the patient may have been a lymph node or small infected skin gland. At this point keep routine mammogram appointment in March as would be normally recommended. However if any recurrent issues please notify the office and we be happy to work her in to reevaluate. Patient is comfortable with this plan. Milton Lujan MD [facility] Discharge Instructions Thank you for allowing [facility] to assist you with your healthcare needs. The following is importantdischarge information regarding your hospital visit. Your Care Team Dr. Shi Your Diagnosis History of GI bleed Hypothyroid Nausea and vomiting Osteoarthritis Status post total left knee replacement What to do next Follow Up Appointments Follow Up with NICK ANTONIO PA-C, Orthopedic When 08/12/2023 10:00 AM EST Why: This is your post-op appointment. Follow-up as scheduled. Where: [address] [facility] [address] [facility], [place] [address]- [phone] Follow Up with [facility] Physical Therapy When 08/01/2023 01:30 PM EDT Why: This is your first physical therapy appointment. Follow-up as scheduled. Where: [address] [place] [address]- [phone] The Following Activity and Diet Have Been Ordered for You Activity: Weight Bearing as tolerated. No Changes were made to your diet. The Following Treatments Have Been Ordered for You Discharge Labs No qualifying data available. Discharge Radiology No qualifying data available. Other Therapies No qualifying data available. Post Acute Orders No qualifying data available. Allergies Blue cheese (itcy mouth) Cantaloupe (itcy mouth) Cipro (RASH) Compazine (tongue sticks out tardative dyskinesia) Walnuts (itchy mouth) iodine topical (RASH) penicillin (RASH) Medications Please ask your primary doctor or pharmacist before taking any other medication not listed, including over the counter drugs, herbal medications, vitamins and or supplements as they may interact withyour home medications. What How Much When Why Instructions Last Dose New acetaminophen (Tylenol) 1,000 Milligram by mouth Three (3) times a day not to exceed 3000 mg/ day 07/31/23 at 0833am New aspirin 81 Milligram by mouth Twice daily with meals Take 81 mg aspirin twice daily with food for 4 weeks postoperatively for DVT prophylaxis. 07/31/23 at 0833am New docusate-senna (Senokot S 50 mg-8.6 mg oral tablet) 2 tab(s) by mouth Two (2) times a day Duration: 3 Days Take until first bowel movement, then as needed Pickup at [facility]/pharmacy #[id number] none New oxyCODONE (oxyCODONE 5 mg oral tablet ( IMMEDIATE release )) See instructions Status post total left knee replacement 1-2 tab(s) Oral q4h Pickup at [facility]/pharmacy #[id number] 07/31/23 at 0531 and 0933am Unchanged calcium carbonate (calcium (as carbonate) 600 mg oral tablet) 1 tab(s) by mouth Once a day none Unchanged cholecalciferol (Vitamin D3 25 mcg (1000 intl units) oral tablet) 1 tab(s) by mouth Once a day none Unchanged denosumab (Prolia 60 mg/ mL subcutaneous solution) 1 Milliliter Subcutaneous Every 6 months none Unchanged dupilumab (Dupixent Pre-filled Pen 200 mg/ 1.14 mL subcutaneous solution) 200 Milligram Subcutaneous Every other week rotate injection sites none Unchanged esomeprazole (NexIUM 20 mg oral delayed release capsule) 1 cap by mouth Once a day 07/31/23 at 0531am Unchanged levothyroxine (levothyroxine 37.5 mcg (0.0375 mg) oral capsule) 1 cap by mouth Once a day on an empty stomach 07/31/23 at 531am Unchanged magnesium citrate (magnesium citrate 100 mg oral capsule) 1 cap by mouth Once a day none Unchanged montelukast (Singulair 10 mg oral tablet) 1 tab(s) by mouth Once a day 07/31/23 at 0833am Unchanged multivitamin with minerals (Centrum Silver oral tablet) 1 tab(s) by mouth Once a day none Pharmacy Information [facility]/pharmacy #[id number]: [address], [place] [id number] [phone] What How Much When Comments Stop Taking omega-3 polyunsaturated fatty acids (Fish Oil 1000 mg oral capsule) 1 cap by mouth Once a day Please take this list to your next doctor s visit. Bring all medications you take, including over the counter medications, herbals and other supplements with you to your doctor s visit. Patients and families are reminded to discard old lists and to update any records with all medication providers or retail pharmacies. Education Materials [facility] Post-operative Instructions PLEASE FOLLOW [facility] POST-OP INSTRUCTIONS GIVEN WATCH FOR SIGNS OF INFECTION: call the office ([phone]) if experencing any of the following: (Usually appears 36-48 hours after surgery) Increased temperature (101 degrees Fahrenheit or higher) Redness or swelling Increased uncontrolled pain Foul odor or drainage Calf discomfort Significant swelling Or if having any chest pain, shortness of breath, or difficulty breathing or swallowing call the office or go the nearest Emergency Room. If you have any questions, please call your doctor at the number listed on your follow up instructions. Form: 338A ([id number]) R: 02/09 Additional Information VACCINATE! IT SAVES LIVES! Members of the community who have not yet received the COVID-19 vaccine and would like to receive it can visit one of [facility] vaccine clinics. There are many vaccine clinic locations within the [facility]. For locations and available times, please visit [email or web address].[place].gov/. It is important to note that some COVID mobile vaccine clinics are held outdoors and may be canceled in rainy or stormy conditions. To learn more about pediatric vaccinations (ages 5-11), we invite you to visit the [facility] webpage. [email or web address] learn more about the COVID-19 vaccine, we invite you to visit the CDC website for a list of frequently asked questions.https://www.cdc.gov/coronavirus/2019-ncov/vaccines/faq.html [facility] Patient Portal Access Instructions: Stay connected with your healthcare team and access your personal medical information anytime with the [facility] Patient Portal. Please follow the directions below to create your [facility] account: 1.Access the email account you provided upon registration to the hospital/physician office.2.Look for an invitation email from [facility].3.Open the email and access the invitation link: AcceptInvitation to [facility].4.Fill in the required aguilar to create your account. To access your account, visit [email or web address]. Click the blue button labeled Access Patient Portal and then log in with the username and password that you created in the steps above. You will be able to view your test results, lab results, a summary of your visits, upcoming appointments and more. There is also a convenient messaging option where you can send secure messages to your p rovider. In addition, you will have the ability to download any documents or summaries to your computer and/or send the information securely to a physician. Remember that your healthcare information is confidential, so carefully consider who you will allowto register on the [facility] Patient Portal for access to your information. You can also access the [facility] Patient Portal on the [facility] meeta. Simply click on Patient Portal and then log into your account. If you would like to receive a full copy of your medical records, please contact the [facility] Medical Records Department by calling [phone], Friday through Friday between 8 a.m. and 4:30 p.m. HOW TO SAFELY DISPOSE OF PRESCRIPTION MEDICATIONS Please use one of the following methods to safely dispose of your unused medications. 1.Use a drug disposal kit: the drug disposal pouch allows you to safely discard your old and unuseddrugs. Ask your nurse to give you one when you are discharged.2.Visit a local take-back location: Many local pharmacies and police departments have programs that collect old and unwanted prescriptiondrugs. Call your local pharmacy or go to http://bit.CardMunch/5W5Uc6s to find one close to you.3.Make use of household items: Use cat litter or old coffee grounds to dispose medications if other options arenot available. Mix your drugs with these household products, seal them in an airtight container andthrow it into the garbage. Call [facility]: [phone] to be sure your drugs can be disposed of in this way. Some medicines may require a different approach.4.Never flush your medications down the toilet. IF YOU HAVE BEEN PRESCRIBED AN OPIOID FOR PAIN If you have been prescribed an opioid (such as hydrocodone, oxycodone or morphine), it is critical to understand the possible side effects and risks of opioid pain medications. Even when taken as directed, opioids can have several side effects including: Tolerance, meaning you might need to take more of a medication for the same pain relief. Nausea, vomiting and/or constipation. Sleepiness, dizziness, dry mouth, confusion, depression or itching. Physical dependence, meaning you have withdrawal symptoms when a medication is stopped, can develop within a few days. KNOW YOUR RESPONSIBILITIES It is important to know exactly how much and how often to take the opioid pain medications you are prescribed. Never take opioids in higher amounts or more often than prescribed. Do not combine opioids with alcohol or other drugs that cause drowsiness, such as benzodiazepines, also known as benzos, including diazepam and alprazolam, muscle relaxants or sleep aids. Never sell or share prescription opioids. This is illegal. Store opioids in a secure place and out of reach of others (including children, family, friends and visitors). The last page of this document has been signed and retained as a CHART COPY. Signatures Patient Education Materials [address] [place] [address] Post-op Instruction 05/2017 (60552) Medication Leaflets My discharge plan and instructions have been reviewed and explained to me and I,MARISSA MARVIN M understand my current condition and have read and understand these discharge instructions. I have received a written copy of the plan/instructions. If I have questions, I am aware that I should contactmy doctor. Patient/Child Development Assistant Signature: Date/Time: Relationship to Patient: Witness Name/Signature: Date/Time: [facility]10-26-[facility]23 Note Date of Service July 31, 2023 Subjective The patient was sitting in bed upon examination. Patient denies any chest pain, shortness of breath, dizziness, lightheadedness, nausea or vomiting, or calf pain. No adverse overnight events. Patientstayed an additional night due to nausea and vomiting. Medicine did work-up which was negative. Patient reports this morning that her nausea/vomiting has completely resolved. She has been passing gas. She has not had a bowel movement yet. She is continued on stool softener. She does report pain which is increased today however when she takes the pain medication oxycodone she states it is helpful.She is unable to use nonsteroidal anti-inflammatory due to her history of GI bleed. Objective Vitals and Measurements T: 36.7 C (Oral) TMIN: 36.5 C (Oral) TMAX: 36.9 C (Oral) HR: 74(Apical) RR: 20 BP: 114/68 SpO2: 94% Intake and Output 7AM Yesterday to 7AM Today Intake and Output (Last 24 hours) Intake Intra-Op Crystalloid 850.00 Oral Intake 570.00 Administration Information 600.00 Output Urine Voided 4.00 Stool Count 0.00 Emesis Count 1.00 Total Summary Total Intake 2020.00 Total Output 4.00 Fluid Balance 2016.00 Physical Exam Vital signs stable, afebrile SCDs and SHAUN hose are in place bilaterally Patient is able to plantarflex and dorsiflex actively Sensation is intact to saphenous, sural, superficial and deep peroneal, and tibial distribution Stable minimal drainage over the distal one third of the main Mepilex dressing Negative signs and symptoms of DVT, negative Homans bilaterally Weight Dosing Weight: 68.2 kg (07/29/23) Medications Medications (20) Active Scheduled: (10) acetaminophen 500 mg Tablet 1,000 mg 2 tab(s), Oral, q8h aspirin 81 mg Chewable 81 mg 1 tab(s), Oral, BIDM docusate sodium 100 mg Capsule 100 mg 1 cap(s), Oral, BID docusate-senna (Senokot S) 50 mg-8.6 mg Tablet 2 tab(s), Oral, BID levothyroxine 75 mcg tablet 37.5 mcg 0.5 tab(s), Oral, qDayAC magnesium citrate Liquid 300mL 100 mg 1.71 mL, Oral, qDay magnesium hydroxide 8% Suspension 30 mL UD 30 mL, Oral, Daily montelukast 10 mg Tablet 10 mg 1 tab(s), Oral, qDay multivitamin Multiple Vitamins Chewable 1 tab(s), Oral, qDayM pantoprazole 20 mg EC tablet 20 mg 1 tab(s), Oral, qDayAC Continuous: (1) NS (0.9% nacl) 1,000 mL 1,000 mL, Intravenous, 75 mL/hr PRN: (9) acetaminophen 325 mg Tablet 650 mg 2 tab(s), Oral, q4h diphenhydramine 25 mg tablet 25 mg 1 tab(s), Oral, q6h diphenhyDRAMINE 50 mg/mL (1 mL) INJ 25 mg 0.5 mL, IV Push, q6h morphine 2 mg/mL 1 mL syringe 2 mg 1 mL, IV Push, q1h ondansetron 2 mg/ 1 mL 2 mL INJ 4 mg 2 mL, IV Push, q8h oxycodone 5 mg tablet (immediate release) 5 mg 1 tab(s), Oral, q4h oxycodone 5 mg tablet (immediate release) 10 mg 2 tab(s), Oral, q4h promethazine 25 mg Tablet 12.5 mg 0.5 tab(s), Oral, q6h sodium biphosphate-sodium phosphate 19 gm-7 gm Enema 133 mL, Rectal, qDay Lab Results 07/31 05:50 Glucose Level: 116 H Sodium Level: 141 Potassium Level: 3.9 BUN: 10 Creatinine Lvl (s): 0.65 07/30 05:52 WBC: 12.6 H Hgb: 12.4 Hct: 37.6 Platelet: 255 Neutrophil %: 88.4 H Glucose Level: 123 H Sodium Level: 137 Potassium Level: 5.2 H BUN: 13 Creatinine Lvl (s): 0.53 L EKG No qualifying data available. Assessment/Plan History of GI bleed Hypothyroid Nausea and vomiting Osteoarthritis Status post total left knee replacement 1. Status post left total knee arthroplasty postop day #2 2. Continue pain medications: Tylenol and oxycodone. Due to patient's history of GI bleed we are holding off of meloxicam. 3. DVT prophylaxis: Take 81 mg aspirin twice daily with food for 4 weeks postoperatively for DVT prophylaxis. Patient denies past history of DVT or pulmonary embolism. We have also reached out to patient's GI doctor in which he is okay with her taking the aspirin twice daily as long as she is having no complications. If there are any symptoms or complications she is to get a hold of her GI specialist. 4. Physical therapy: Weightbearing as tolerated with walker 5. Lab work has been reviewed and stable 6. Resolved nausea and vomiting 7. Encouraged incentive spirometry 8. Continue postoperative medical management per medicine 9. Disposition: Patient's nausea and vomiting has completely resolved. She has been passing gas. She will continue with the stool softener until her first bowel movement. She does report increased pain today however she states that when she takes the oxycodone this does help the pain. We discussed adding further pain medication however this may come with other side effects as well. She did not wish to proceed with that. We cannot use nonsteroidal anti- inflammatories due to her history of GI bleed. We did reach out to the GI specialist in which they are allowing us to use a baby aspirin twice daily for DVT prophylaxis. If there are any complications she will reach out to her GI specialist and our office. Medications have already been E scribed to her primary pharmacy. She will follow-up per postoperative instructions. Patient has outpatient physical therapy established. Upon discharge she will contact her office with any concerns or questions. I am okay with patient being discharged after her morning physical therapy today as long as medically cleared. We discussed discharge medications and dressings. I have reviewed the [place] Automated Rx Reporting System (OARRS) report for this patient for refill pattern and other prescriber involvement as part of the appropriate surveillance for the provision ofacute and chronic controlled medications. The report was requested and reviewed on the date of thisentry, and was considered in the prescribing process This dictation was created using voice recognition software. Phonetic and/or grammatical errors mayexist. Digitally Signed by MARIN VIGIL PA-C on 07/31/2023 07:35 AM [facility]10-26-2023 Nurse Progress note last dose was 1415. pt taught reasons for alternating meds and staying ahead of the pain for futuredoses. pt was fearful of being nauseated after meds but refused zofran or phenergan Digitally Signed by TRAVON Quintero on 07/31/2023 02:43 AM [facility]10-26-2023 Nurse Progress note working 11-7. i walked pt to bathroom. pt complained of pain and was scheduled tylenol. in report this nurse was told pt was nauseated in am and was leary of taking pain med. i gave pt tylenol and oxy 5. last dose was . pt rated pain 6. pt had oxy at 215 prior and was explained to about taking medicine, alternating medicine and staying ahead of pain. originally pt was given scheduled tylenol with5 of oxyir but after going to the bathroom pt stated she wished she had taken 10 of the oxy so at 0030 the other 5 was given to equal the 10. pt was very anxious . Digitally Signed by TRAVON Quintero on 07/31/2023 01:33 AM [facility]10-25-2023 Note Date of Service 07/30/2023 Chief Complaint Nausea and vomiting Subjective Evaluated the bedside today, patient is having persistent nausea and vomiting. Tolerating some clear liquids. Not passing gas, no abdominal pain. Minimal bowel sounds. Abdominal x-ray negative. Objective Vitals and Measurements T: 36.7 C (Oral) TMIN: 36.3 C (Oral) TMAX: 36.7 C (Oral) HR: 67(Apical) RR: 20 BP: 117/73 SpO2: 96%HT: 162.6 cm WT: 68.2 kg BMI: 25.8 Intake and Output 7AM Yesterday to 7AM Today Intake and Output (Last 24 hours) Intake Administration Information 2583.44 Output Urine Voided 900.00 Intra-Op EBL 50.00 Urine Count 2.00 Emesis Count 2.00 Total Summary Total Intake 2583.44 Total Output 950.00 Fluid Balance 1633.44 Physical Exam Physical Exam General: Alert, appropriate and awake, oriented to time, people and place Skin: No rash. Warm, Dry, Intact HEENT: Head is normocephalic and atraumatic. No lesions. Pupils equal in size. Extraocular movements within normal limits. Nose: No septal deviation. Mouth: Oropharynx mucosa is without lesion. Neck: Supple. No lymphadenopathy, thyromegaly noted. Lungs: Bilaterally clear/diminished breath sounds with no crepitation or wheeze. Unlabored Cardiovascular: Heart is regular rhythm, S1S2, No extra-audible heart tones Abdomen: Nontender, minimal bowel sounds. Extremities: No clubbing, cyanosis or edema. Peripheral pulses palpable. No calf tenderness. Adequate peripheral circulation. Neurological: Following simple commands, moving all extremities. Weight Dosing Weight: 68.2 kg (07/29/23) Medications Medications (20) Active Scheduled: (10) acetaminophen 500 mg Tablet 1,000 mg 2 tab(s), Oral, q8h aspirin 81 mg Chewable 81 mg 1 tab(s), Oral, BIDM docusate sodium 100 mg Capsule 100 mg 1 cap(s), Oral, BID docusate-senna (Senokot S) 50 mg-8.6 mg Tablet 2 tab(s), Oral, BID levothyroxine 75 mcg tablet 37.5 mcg 0.5 tab(s), Oral, qDayAC magnesium citrate Liquid 300mL 100 mg 1.71 mL, Oral, qDay magnesium hydroxide 8% Suspension 30 mL UD 30 mL, Oral, Daily montelukast 10 mg Tablet 10 mg 1 tab(s), Oral, qDay multivitamin Multiple Vitamins Chewable 1 tab(s), Oral, qDayM pantoprazole 20 mg EC tablet 20 mg 1 tab(s), Oral, qDayAC Continuous: (1) NS (0.9% nacl) 1,000 mL 1,000 mL, Intravenous, 75 mL/hr PRN: (9) acetaminophen 325 mg Tablet 650 mg 2 tab(s), Oral, q4h diphenhydramine 25 mg tablet 25 mg 1 tab(s), Oral, q6h diphenhyDRAMINE 50 mg/mL (1 mL) INJ 25 mg 0.5 mL, IV Push, q6h morphine 2 mg/mL 1 mL syringe 2 mg 1 mL, IV Push, q1h ondansetron 2 mg/ 1 mL 2 mL INJ 4 mg 2 mL, IV Push, q8h oxycodone 5 mg tablet (immediate release) 5 mg 1 tab(s), Oral, q4h oxycodone 5 mg tablet (immediate release) 10 mg 2 tab(s), Oral, q4h promethazine 25 mg Tablet 12.5 mg 0.5 tab(s), Oral, q6h sodium biphosphate-sodium phosphate 19 gm-7 gm Enema 133 mL, Rectal, qDay Lab Results 07/30 05:52 WBC: 12.6 H Hgb: 12.4 Hct: 37.6 Platelet: 255 Neutrophil %: 88.4 H Glucose Level: 123 H Sodium Level: 137 Potassium Level: 5.2 H BUN: 13 Creatinine Lvl (s): 0.53 L EKG No qualifying data available. Assessment/Plan 1. Osteoarthritis 2. History of GI bleed 3. Hypothyroidism 4. Postoperative nausea and vomiting Osteoarthritis status post left total knee arthroplasty. Management per primary team. History of GI bleed with gastric ulcer, patient states use of aspirin for DVT prophylaxis postoperatively was cleared by GI. Monitor for bleeding. Hypothyroidism, continue Synthroid. Postoperative nausea and vomiting, abdominal x-ray negative. Minimal bowel sounds. Not yet passing gas. Would recommend for patient to stay in the hospital until tolerating oral intake. Continue normal saline at 75 cc/h. Hospitalist team follow on consult. Discussed with patient at the bedside. Time Spent Total time spent reviewing labs, diagnostics, evaluating the patient, and medical decision makin minutes Digitally Signed by MARCIE GUTIERREZ on 07/30/2023 11:15 AM [facility]10-25-2023 Note ORIGINAL EXAMINATION: 2 XRAY VIEWS OF THE YREQQKT6907/30/2023 10:26 am COMPARISON: None HISTORY: ORDERING SYSTEM PROVIDED HISTORY: Reason for Exam: nausea FINDINGS: No air distended bowel segments. No free air seen. Normal volume of stool identified. Coarsened markings noted in the lower thorax. Bony detail is not optimal. IMPRESSION: No free air. Nonobstructive bowel gas pattern Coarsened lower lung markings could relate to chronic interstitial disease Interpreted by: Nilay Carrera MD Preliminary Report By: Nilay Carrera MD Electronically signed By Nilay Carrera MD Dictated Date: 07/30/2023 10:37:38 AM Prelim Date: 07/30/2023 10:38:42 AM Sign Date: 07/30/2023 10:38:42 AM [facility] Discharge instructions Patient Education 07/30/2023 06:34:54 5 - [facility] Post-op Instruction 05/2017 ([id number]) [facility] Post-operative Instructions PLEASE FOLLOW [facility] POST-OP INSTRUCTIONS GIVEN WATCH FOR SIGNS OF INFECTION: call the office ([phone]) if experencing any of the following: (Usually appears 36-48 hours after surgery) Increased temperature (101 degrees Fahrenheit or higher) Redness or swelling Increased uncontrolled pain Foul odor or drainage Calf discomfort Significant swelling Or if having any chest pain, shortness of breath, or difficulty breathing or swallowing call the office or go the nearest Emergency Room. If you have any questions, please call your doctor at the number listed on your follow up instructions. Form: 338A (02242) R: 02/09 Follow Up Care 05/19/2023 13:40:47 With:[facility] Address: [address] [place] [phone] When:08/01/2023 13:30:00 Comments:This is your first physical therapy appointment. Follow-up as scheduled. With:NICK ANTONIO PA-C, Orthopedic Address: [address] [place] [address] [address] [facility], [place] [address] [phone] When:08/12/2023 10:00:00 Comments:This is your post-op appointment. Follow-up as scheduled. [facility] 10-25-2023 Note Date of Service July 30, 2023 Subjective The patient was sitting in bed upon examination. Patient denies any chest pain, shortness of breath, lightheadedness, or calf pain. Patient states she has been experiencing some nausea and dizziness when sitting up. She denies any chest pain. Her pain has been controlled so far with the left knee. She did receive a perioperative block. Her plan is to go home when ready. She has outpatient physical therapy established. Patient states that she has a headache today however she states she came in to the surgery with headache. Objective Vitals and Measurements T: 36.5 C (Oral) TMIN: 36.3 C (Oral) TMAX: 36.6 C (Temporal Artery) HR: 73(Apical) RR: 16 BP: 117/74 SpO2: 94% HT: 162.6 cm WT: 68.2 kg BMI: 25.8 Intake and Output 7AM Yesterday to 7AM Today Intake and Output (Last 24 hours) Intake Administration Information 2583.44 Output Urine Voided 900.00 Intra-Op EBL 50.00 Urine Count 2.00 Emesis Count 1.00 Total Summary Total Intake 2583.44 Total Output 950.00 Fluid Balance 1633.44 Physical Exam Vital signs stable, afebrile SCDs and SHAUN hose are in place bilaterally Patient is able to plantarflex and dorsiflex actively Sensation is intact to saphenous, sural, superficial and deep peroneal, and tibial distribution Proximal pin site dressing and Mepilex dressing is clean dry and intact. There is mild discharge atthe distal pin site dressing Negative signs and symptoms of DVT, negative Homans bilaterally Weight Dosing Weight: 68.2 kg (07/29/23) Medications Medications (22) Active Scheduled: (12) acetaminophen 500 mg Tablet 1,000 mg 2 tab(s), Oral, q8h aspirin 81 mg Chewable 81 mg 1 tab(s), Oral, BIDM bisacodyl 5 mg EC tablet 10 mg 2 tab(s), Oral, Once docusate sodium 100 mg Capsule 100 mg 1 cap(s), Oral, BID docusate-senna (Senokot S) 50 mg-8.6 mg Tablet 2 tab(s), Oral, BID levothyroxine 75 mcg tablet 37.5 mcg 0.5 tab(s), Oral, qDayAC magnesium citrate Liquid 300mL 100 mg 1.71 mL, Oral, qDay magnesium hydroxide 8% Suspension 30 mL UD 30 mL, Oral, Daily montelukast 10 mg Tablet 10 mg 1 tab(s), Oral, qDay multivitamin Multiple Vitamins Chewable 1 tab(s), Oral, qDayM ondansetron 2 mg/ 1 mL 2 mL INJ 4 mg 2 mL, IV Push, q8h pantoprazole 20 mg EC tablet 20 mg 1 tab(s), Oral, qDayAC Continuous: (1) Lactated Ringers 1,000 mL 1,000 mL, Intravenous, 100 mL/hr PRN: (9) acetaminophen 325 mg Tablet 650 mg 2 tab(s), Oral, q4h diphenhydramine 25 mg tablet 25 mg 1 tab(s), Oral, q6h diphenhyDRAMINE 50 mg/mL (1 mL) INJ 25 mg 0.5 mL, IV Push, q6h morphine 2 mg/mL 1 mL syringe 2 mg 1 mL, IV Push, q1h ondansetron 2 mg/ 1 mL 2 mL INJ 4 mg 2 mL, IV Push, q8h oxycodone 5 mg tablet (immediate release) 5 mg 1 tab(s), Oral, q4h oxycodone 5 mg tablet (immediate release) 10 mg 2 tab(s), Oral, q4h promethazine 25 mg Tablet 12.5 mg 0.5 tab(s), Oral, q6h sodium biphosphate-sodium phosphate 19 gm-7 gm Enema 133 mL, Rectal, qDay Lab Results 07/30 05:52 WBC: 12.6 H Hgb: 12.4 Hct: 37.6 Platelet: 255 Neutrophil %: 88.4 H EKG No qualifying data available. Assessment/Plan History of GI bleed Hypothyroid Osteoarthritis 1. Status post left total knee arthroplasty postop day #1 2. Continue pain medications: Tylenol and oxycodone. Due to patient's history of GI bleed we are holding off of meloxicam. 3. DVT prophylaxis: Take 81 mg aspirin twice daily with food for 4 weeks postoperatively for DVT prophylaxis. Patient denies past history of DVT or pulmonary embolism. We have also reached out to patient's GI doctor in which he is okay with her taking the aspirin twice daily as long as she is having no complications. If there are any symptoms or complications she is to get a hold of her GI specialist. 4. Physical therapy: Weightbearing as tolerated with walker 5. H & H: 12.4/37.6, asymptomatic. Postoperative anemia from surgery without intraoperative complications. At this time there is no need for treatment. 6. Reactive leukocytosis: Currently 12.6, afebrile. Patient did receive Decadron intraoperatively 7. Encouraged incentive spirometry 8. Continue postoperative medical management per medicine 9. Disposition: Plan will be for probable discharge home today as long as she is medically stable. She is having some dizziness and nausea this morning. As long as patient improves and her pain is well controlled and tolerates therapy plan for probable discharge home this afternoon. She does have outpatient physical therapy established. She will follow-up per postop instructions. She will contact her office postoperatively upon discharge with any concerns or questions. She would like her prescriptions E scribed to [facility] in [facility]. I have reviewed the [place] Automated Rx Reporting System (OARRS) report for this patient for refill pattern and other prescriber involvement as part of the appropriate surveillance for the provision ofacute and chronic controlled medications. The report was requested and reviewed on the date of thisentry, and was considered in the prescribing process This dictation was created using voice recognition software. Phonetic and/or grammatical errors mayexist. Digitally Signed by MARIN VIGIL PA-C on 07/30/2023 06:34 AM Digitally Signed by MARIN VIGIL PA-C on 07/30/2023 06:41 AM [facility]10-24-2023 Note ORIGINAL HISTORY: Arthroplasty COMPARISON: CT 04 July 2023 FINDINGS: There is an arthroplasty in near anatomic alignment. There is no radiographic evidence of loosening or failure of hardware. There is skin debra and there is gas in the soft tissues and joint space. IMPRESSION: Arthroplasty with immediate postoperative changes. Interpreted by: Fili Arnold MD Preliminary Report By: Fili Arnold MD Electronically signed By Fili Arnold MD Dictated Date: 07/29/2023 3:14:38 PM Prelim Date: 07/29/2023 3:15:19 PM Sign Date: 07/29/2023 3:15:19 PM Ordering Provider: [facility]10-24-2023 Anesthesiology Consult note Patient: MARISSA MARVIN Age: 68 years Sex: Female : 1955 Associated Diagnoses: None Author: CHEYENNE HERNÁNDEZ APRN-[employer]ELER Preoperative Information Time of last food or liquid consumption: 07/28/2023 23:59:00 Anesthesia history Patient's history: negative. Family's history: negative. Review of Systems Ear/Nose/Mouth/Throat: Negative except as documented in history of present illness. Respiratory: Negative except as documented in history of present illness. Cardiovascular: Negative except as documented in history of present illness. Gastrointestinal: Negative except as documented in history of present illness. Genitourinary: Negative except as documented in history of present illness. Endocrine: Negative except as documented in history of present illness. Musculoskeletal: Negative except as documented in history of present illness. Integumentary: Negative except as documented in history of present illness. Neurologic: Negative except as documented in history of present illness. Health Status Allergies: Allergic Reactions (Selected) Severity Not Documented Cipro- Rash. Iodine topical- Rash. Penicillin- Rash., Allergies (3) ActiveReaction CiproRASH iodine topicalRASH penicillinRASH Current medications: (Selected) Inpatient Medications Ordered Bicitra: 30 mL, Oral, PREOP pharm Decadron: 10 mg, 1 mL, IV Push, AsDirected LR 1,000 mL: 20 mL/hr, Intravenous, Stop: 07/29/23 23:59:00 EDT Naropin 25 mg + Toradol 15 mg + EPINEPHrine 1 mg/mL injectable solution 0.3 mg + morphine 2.5 mg...: 25 mg, 5 mL, mL/hr, Other, PREOP pharm Naropin 25 mg + Toradol 15 mg + EPINEPHrine 1 mg/mL injectable solution 0.3 mg + morphine 2.5 mg...: 25 mg, 5 mL, mL/hr, Other, PREOP pharm ceFAZolin: 2 gram(s), 200 mL/hr, IV Piggyback, PREOP pharm tranexamic acid 1 g / 100 mL 0.7% NaCl PMX: 1 gram(s), 100 mL, 300 mL/hr, IV Piggyback, AsDirected tranexamic acid 1 g / 100 mL 0.7% NaCl PMX: 1 gram(s), 100 mL, 300 mL/hr, IV Piggyback, AsDirected Documented Medications Documented Centrum Silver oral tablet: 1 tab(s), Oral, qDay, 30 tab(s), 0 Refill(s) Dupixent Pre-filled Pen 200 mg/1.14 mL subcutaneous solution: 200 mg, Subcutaneous, q2wk, rotate injection sites, 2.28 mL, 0 Refill(s) Fish Oil 1000 mg oral capsule: 1,000 mg, 1 cap(s), Oral, qDay, 90 cap(s), 0 Refill(s) NexIUM 20 mg oral delayed release capsule: 20 mg, 1 cap(s), Oral, qDay, 90 cap(s), 0 Refill(s) Prolia 60 mg/mL subcutaneous solution: 60 mg, 1 mL, Subcutaneous, q6mo, 1 mL, 0 Refill(s) Singulair 10 mg oral tablet: 10 mg, 1 tab(s), Oral, qDay, 0 Refill(s) Vitamin D3 25 mcg (1000 intl units) oral tablet: 25 mcg, 1 tab(s), Oral, qDay, 30 tab(s), 0 Refill(s) calcium (as carbonate) 600 mg oral tablet: 600 mg, 1 tab(s), Oral, qDay, 0 Refill(s) levothyroxine 37.5 mcg (0.0375 mg) oral capsule: 37.5 International_Unit, 1 cap(s), Oral, qDay, on an empty stomach, 30 EA, 0 Refill(s) magnesium citrate 100 mg oral capsule: 100 mg, 1 cap(s), Oral, qDay, 120 cap(s), 0 Refill(s), Medications (8) Active Scheduled: (7) ceFAZolin 2 gram(s), IV Piggyback, PREOP pharm citric acid-sodium citrate 334 mg-500 mg/5 mL (30 mL) Claire UD 30 mL, Oral, PREOP pharm dexamethasone 10 mg/mL (1mL) SDV 10 mg 1 mL, IV Push, AsDirected ropivacaine 25 mg + ketorolac 15 mg + epinephrine 0.3 mg + morphine 2.5 mg 25 mg 5 mL, Other, PREOPpharm ropivacaine 25 mg + ketorolac 15 mg + epinephrine 0.3 mg + morphine 2.5 mg 25 mg 5 mL, Other, PREOPpharm tranexamic acid PMX 1 gram(s) 100 mL, IV Piggyback, AsDirected tranexamic acid PMX 1 gram(s) 100 mL, IV Piggyback, AsDirected Continuous: (1) Lactated Ringers 1,000 mL 1,000 mL, Intravenous, 20 mL/hr PRN: (0) Problem list: No problem items selected or recorded., Active Problems (5) Asthma GERD (gastroesophageal reflux disease) Hypothyroid Osteoarthritis Peptic ulcer disease Histories Past Medical History: No active or resolved past medical history items have been selected or recorded. Family History: Cancer Mother Father Hypertension Father Mother Brother Sister Heart disease Mother Father Sister Brother Diabetes Mother Father Sister Brother Procedure history: Carpal tunnel release ([id number]). Comments: 07/04/2023 8:39 Lori Guerrero RN RIGHT Arthroscopy of knee ([id number]). Comments: 07/04/2023 8:40 Lori Guerrero RN BILATERAL Rotator cuff repair ([id number]). Comments: 07/04/2023 8:39 EDT Lori Gregory RN BILATERAL Trigger finger of right hand ([id number]). Comments: 07/04/2023 8:39 Lori Guerrero RN THUMB Tonsillectomy ([id number]). Basal cell carcinoma of ear ([id number]). Comments: 07/04/2023 8:40 Lori Guerrero RN RIGHT Thumb ([id number]). Comments: 07/04/2023 8:41 Lori Guerrero RN BILATERAL - TENDON REPLACEMENT Social History Social & Psychosocial Habits Alcohol 07/29/2023 Use: Current Frequency: 1-2 times per month Substance Abuse 07/29/2023 Use: Never Tobacco 07/29/2023 Tobacco Use: Never (less than 100 in l . Physical Examination Vital Signs 07/29/2023 10:49 EDT Temperature Temporal Artery 36.4 DegC Apical Heart Rate 73 bpm Respiratory Rate 17 br/min Systolic Blood Pressure Non-Invasive 126 mmHg Diastolic Blood Pressure Non-Invasive 76 mmHg Vital Signs(last 24 hrs) Last Charted Resp Rate 17 br/min (JUL 29 10:49) SVY324 mmHg (JUL 29 10:49) DBP76 mmHg (JUL 29 10:49) Pain assessment: Pain Assessment 07/29/2023 11:31 EDT Primary Pain Intensity 1 07/29/2023 10:49 EDT Primary Pain Intensity 1 Pain Scale Type 0-10 Pain scale . General: Alert and oriented. Airway: Normal neck range of motion. Mallampati classification: II (soft palate, fauces, uvula visible). Head: Normocephalic. Dentition Evaluation: Intact, Own teeth. Neck: Full range of motion. Respiratory: Lungs are clear to auscultation. Cardiovascular: Normal rate. Heart Sounds: Normal. Gastrointestinal: Soft. Musculoskeletal Normal range of motion. Integumentary: Intact, Warm, Dry. Neurologic: Alert, Oriented. Review / Management Results review: No qualifying data available , Lab results 07/29/2023 11:43 EDT SN - Preop - CTm Pt in SDS Room 07/29/2023 10:42 SN - Preop - CTm Pt Ready for OR/Proced 07/29/2023 11:35 07/29/2023 11:31 EDT Primary Pain Intensity 1 celecoxib 400 mg mg oxyCODONE 10 mg mg 07/29/2023 11:13 EDT Lactated Ringers Injection 1,000 mL mL 07/29/2023 11:12 EDT famotidine 20 mg mg 07/29/2023 11:06 EDT Antecubital Right 07/29/2023 20 gauge Peripheral IV Activity: Insert new site Peripheral IV Dressing Condition: Clean, Dry, Intact Peripheral IV Dressing Activity: Applied, Transparent dressing Peripheral IV Line Status/Patency: Flushes easily, Continuous infusion Peripheral IV Line Care: Secured with tape Peripheral IV Site Condition: No complications Peripheral IV Equipment: Extension set, PRN Adaptor Peripheral IV Number of Attempts: 1 07/29/2023 11:05 EDT ABO/Rh Interp A POS Antibody Screen Gel Negative ABSC 07/29/2023 10:49 EDT Temperature Temporal Artery 36.4 DegC Apical Heart Rate 73 bpm Respiratory Rate 17 br/min Systolic Blood Pressure Non-Invasive 126 mmHg Diastolic Blood Pressure Non-Invasive 76 mmHg Primary Pain Intensity 1 Pain Scale Type 0-10 Pain scale Heart Rhythm Regular Respirations Unlabored Respiratory Pattern Regular Breath Sounds Auscultated Anterior only All Lobes Breath Sounds Clear Cough None Oxygen Saturation 97 % Abdomen Description Non-distended, Soft Abdomen Palpation Non-Tender, Soft Bowel Sounds All Quadrants Present Urinary Elimination Voiding, no difficulties Skin Temperature Warm Skin Description [place], Normal for ethnicity, Dry Skin Integrity Intact Mucous Membrane Color [place] Skin Moisture General Dry IV Present Present Neurological Symptoms Patient denies Extremity Movement Equal Characteristics of Speech Clear Level of Consciousness Alert Strength All Extremities Strong Tone All Extremities Normal Sensation All Extremities Intact Affect/Behavior Appropriate, Calm, Cooperative Orientation Oriented x 4 Allergies Yes Anesthesia Extension Set Applied Yes Consent Form Signed Yes Patient Dressed In Hospital gown, No undergarments Pre-op Preparation Glasses removed, Shave prep done by clippers, Undergarments removed CHG Preoperative Wash/Wipe Night before procedure, Day of procedure, Site specific wipe Preop Nasal Swab In Error (In Error) History & Physical Update On Chart Yes History & Physical On Chart Yes Obstructive Sleep Apnea Assess Completed Yes Orientation Assessment Oriented x 4 Belongings At Bedside Bra, Glasses, Pants, Shirt, Shoes, Undergarments Assistive Device None Positioning Repositions self Activity Status ADL Awake, Resting Sequential Compression Device right knee high applied/on Antiembolism Stocking On/Re-applied right thigh high NPO Status Maintained Standard Safety ID band on, Allergy Band on, Call device within reach, Bed in low position, Wheels locked, Visitor at bedside, Non-Slip footwear Allergy Band on and Verified Yes Patient ID Band on and Verified Yes Implants Verified Yes Pacemaker/AICD Verified Yes Anesthesia Consent Signed Yes Blood Consent Signed Yes Last Fluid Intake 07/29/2023 2:30 Last Food Intake 07/28/2023 19:00 Last Void 07/29/2023 10:51 . Assessment and Plan [place] [employer] Anesthesiologists (ASA) physical status classification: Class II. Anesthetic Preoperative Plan Premedication: intravenous. Anesthetic technique: MAC, Regional, Spinal. Induction: intravenously. Maintenance airway: Mask. Regional: Spinal, Adductor Canal Block. Postoperative pain management: Per surgeon. Risks discussed: nausea, vomiting, headache, sore throat, dental injury, hypotension, allergic reaction, serious complications. Informed consent: signed by patient. Digitally Signed by CHEYENNE HERNÁNDEZ on 07/29/2023 12:26 PM [facility]09-29-2023 Note ORIGINAL EXAMINATION: CT OF THE LEFT KNEE WITHOUT CONTRAST 07/04/2023 10:06 am TECHNIQUE: CT of the left knee was performed without the administration of intravenous contrast. Multiplanar reformatted images are provided for review. Automated exposure control, iterative reconstruction, and/or weight based adjustment of the mA/kV was utilized to reduce the radiation dose to as low as reasonably achievable. COMPARISON: None. HISTORY ORDERING SYSTEM PROVIDED HISTORY: Reason for Exam: VARUS DEFORMITY FINDINGS: Exam performed for surgical planning protocol Survey images left hip: No aggressive bony lesions Left knee: No aggressive bony lesions seen. Vacuum phenomenon noted in the medial tibiofemoral compartment. Tricompartmental joint space loss and spurring is most prevalent in the medial tibiofemoral compartment. No aggressive bony lesion. 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 There is a small joint effusion Interpreted by: Nilay Carrera MD Preliminary Report By: Nilay Carrera MD Electronically signed By Nilay Carrera MD Dictated Date: 07/04/2023 1:39:17 PM Prelim Date: 07/04/2023 1:41:38 PM Sign Date: 07/04/2023 1:41:38 PM Ordering Provider: [facility]06-01-2023 History of Present illness Narrative* Sandee Raymundo RT(R) - 03/06/2023 10:10 AM EDT Radiology Service Progress Note PATIENT NAME: Marissa Marvin DATE OF SERVICE: March 06, 2023 TIME: 10:11 AM PATIENT IDENTITY VERIFICATION COMPLETED USING TWO (2) IDENTIFIERS: Name and Date of confirmedby patient verbally. FALL SCREENING: Has the patient had 2 falls in the last year or 1 fall with injury or currently using an Ambulatory Assistive Device (Walker, Cane, Wheelchair, Crutches, etc.)? No PATIENT GENDER DATA: Female. status: : No status: NO. PATIENT RELEVANT IMPLANT DATA REVIEWED: Not Applicable RADIOLOGY DEPARTMENT: Mammography PERIPHERAL IV DATA: Not applicable SIGNED BY: RT David(R) March 06, 2023 10:11 AM documented [facility]Bl[facility] Miscellaneous Notes* Letter - Mammography Coordinator - 03/05/2022 3:08 PM EDT March 05, 2022 PID: [id number] Marissa Marvin [address] [place] [address] Dear Tiana Yon, We are pleased to inform you that the results of your recent breast imaging exam on 03/05/2022 are normal. Your mammogram demonstrates that you have dense breast tissue, which could hide abnormalities. Dense breast tissue, in and of itself, is a relatively common condition. Therefore, this information is not provided to cause undue concern; rather, it is to raise your awareness and promote discussion with your health care provider regarding the presence of dense breast tissue in addition to other riskfactors. Early detection of cancer is very important. We also understand recommendations regarding breast cancer screening are controversial. Please discuss with your primary care provider which strategy is best for you and whether a mammogram is right for you. Your imaging studies and report will be kept on file at [facility] as part of your permanent medical record and are available for your continuing care. Thank you for allowing us to help in meeting your health care needs. Sincerely, Dr. Schaffer Interpreting Radiologist [facility] (Normal over 40) documented in this encounterBlanch[facility]05[facility] History of Present illness Narrative* Margoth Michele - 03/05/2022 8:30 AM EDT Radiology Service Progress Note PATIENT NAME: Marissa Marvin DATE OF SERVICE: March 05, 2022 TIME: 10:39 AM PATIENT IDENTITY VERIFICATION COMPLETED USING TWO (2) IDENTIFIERS: Name and Date of confirmedby patient verbally. FALL SCREENING: Has the patient had 2 falls in the last year or 1 fall with injury or currently using an Ambulatory Assistive Device (Walker, Cane, Wheelchair, Crutches, etc.)? No PATIENT GENDER DATA: Female. status: : No status: NO. PATIENT RELEVANT IMPLANT DATA REVIEWED: Not Applicable RADIOLOGY DEPARTMENT: Mammography PERIPHERAL IV DATA: Not applicable SIGNED BY: Margoth Michele March 05, 2022 10:39 AM documented in this encounterBlanch[facility]01[facility]22 NoteHNO ID: [id number] Author: Iliana Covarrubias OT/L Service: ? Author Type: Occupational Therapist Type: Progress Notes Filed: 10/25/2021 2:04 PM Note Text: Episode Visit Count: 8 Therapist That Will Oversee The Plan Of Care: Sunil Barrientos Start of Care Date: 09/06/21 Onset Date: 08/24/21 Plan of Care Certification Date: 09/06/21 Next Certification Due Date: 12/05/21 Patient Identified by Name and Date of : Yes [facility]ER[facility]Y OCCUPATIONAL THERAPY DISCONTINUANCE OF CARE PLAN OF CARE UPDATE: Assessment: Marissa Marvin is discontinued from Occupational Therapy services due to goal achievement and maximal benefit.. Patient was seen for 8 visits from Start of Care Date: 09/06/21 to 10/25/2021 and treatment included: Therapeutic exercise, Manual therapy, Self-alf management, Modalities and Custom orthosis fabrication. Patient will report a good understanding of diagnosis and OT recommendations for progression of program.PROGRESSING 10/11 MET Patient will demonstrate independence with ongoing home recommendations/exercise program throughout therapy plan of care.PROGRESSING 10/11 MET Patient will independently demonstrate correct application of CUSTOM orthosis and verbalize understanding of proper wear/care. PROGRESSING 10/11 MET Patient will report a good understanding of edema control, scar / wound management throughout therapy plan of care to promote non-adherent / non-tender soft tissue PROGRESSING 10/11 MET SUBJECTIVE: 8 weeks s/p [facility] arthroplasty has been able of activity spome difficulty opening bottles packages Pt reports she is independent in home program but knows hand still has a ways to go to get back to normal Pain: Pain Pain Level: 1 PROMIS Scales Higher is Better 10/09/2016 10/02/2021 10/02/2021 Phys Func - Score - - 38 (moderate dysfunction) Phys Func - Percentile - - 12 % Social Roles - Score - - 39 (moderate dysfunction) Social Role - Percentile - - 14 % GH Physical - Score - - 54.1 (Very Good) GH Physical - Percentile 53 % 66 % 66 % GH Mental - Score - - 62.5 (Excellent) GH Mental - Percentile 96 % 89 % 89 % Self-Eff Symptom - Score - - 48 (Average) Self-Eff Symptom - Percentile - - 42 % T-scores: mean of general population = 50. 5 points is clinically meaningfully difference Percentiles provide an indication of how the patient's score ranks in relation to the general population. Higher percentile rankings indicate better function/quality of life. 50th percentile is the average of the general population and indicates half of respondents had a worse score. Lower is Better 10/02/2021 Fatigue - Score 39 (within normal limits) Fatigue - Percentile 86 % T-scores: mean of general population = 50. 5 points is clinically meaningfully difference Percentiles provide an indication of how the patient's score ranks in relation to the general population. Higher percentile rankings indicate better function/quality of life. 50th percentile is the average of the general population and indicates half of respondents had a worse score. OBJECTIVE MEASURES WITH LEVEL OF FUNCTION: Hand Strength: Residential Sales Executive Position 2 Hand Strength L Residential Sales Executive Position 2 (lbs): 10 lbs L Lateral Pinch (lbs): 6 lbs L Tripod/ 3 Jaw James (lbs): 3.5 lbs L Tip Pinch (lbs): 3 lbs UE AROM L Wrist Extension: 55 Degrees L Wrist Flexion: 45 Degrees L Wrist Radial Deviation: 15 Degrees L Wrist Ulnar Deviation: 30 Degrees Hand AROM L Thumb MP Flexion : 40 Degrees L Thumb IP Flexion : 39 Degrees L Thumb Radial Abduction: 55 Degrees L Thumb Palmar Abduction: 65 Degrees TREATMENT: Therapeutic Exercise: 1: AROM hand wrist and thumb 2: tendon gliding and digit add/abd 3: ogjective measurements taken and recorded 4: with green medium putty riveter hand digit ext roll finger flexion and digit extension into flattened putty 5: with green thumb flex ext tripod pinch lateral pinch and thumb adduction 6: with 2# weight wrist flex ext dev and sup pro 7: educated in progressing self into 2 # weight and firmer putty as able Skilled Intervention: Patient was educated in proper exercise technique and purpose for exercises. Billing Therapeutic Exercise Treatment Minutes: 35 [facility]ubias [id number] NoteHNO ID: [id number] Author: Iliana Covarrubias OT/Bharti Service: ? Author Type: Occupational Therapist Type: Progress Notes Filed: 10/18/2021 1:52 PM Note Text: Episode Visit Count: 7 Therapist That Will Oversee The Plan Of Care: Sunil Barrientos Start of Care Date: 09/06/21 Onset Date: 08/24/21 Plan of Care Certification Date: 09/06/21 Next Certification Due Date: 12/05/21 REHABILITATION AND SPORTS THERAPY OCCUPATIONAL THERAPY TREATMENT NOTE ASSESSMENT: Marissa Marvin demonstrated difficulty with strength. The patient will continue to benefit from continued skilled occupational therapy for education exercises PLAN FOR NEXT VISIT: fluido progress HEP anticipate discharge SUBJECTIVE: Saw MD and was able to use a can digital coordinator Pain: Pain Pain Level: 1 OBJECTIVE MEASURES WITH LEVEL OF FUNCTION: TREATMENT: Therapeutic Exercise: 1: AROM hand wrist and thumb 2: tendon gliding and digit add/abd 3: AROM with hand in fluido x 10 minutes 4: added thumb addiction and ;ateral pinch to HEP 5: pinch pins yello red and green 6: purdue pegboard for fine motor tasks Skilled Intervention: Patient was educated in proper exercise technique and purpose for exercises. Provided written instruction for home exercise program to facilitate proper performance and compliance. Billing Therapeutic Exercise Treatment Minutes: 40 Il[facility]ubias [facility] [id number] NoteHNO ID: [id number] Author: Iliana Covarrubias OT/L Service: ? Author Type: Occupational Therapist Type: Progress Notes Filed: 10/11/2021 2:08 PM Note Text: Episode Visit Count: 6 Therapist That Will Oversee The Plan Of Care: Sunil Barrientos Start of Care Date: 09/06/21 Onset Date: 08/24/21 Plan of Care Certification Date: 09/06/21 Next Certification Due Date: 12/05/21 Patient Identified by Name and Date of : Yes REHABILITATION AND SPORTS THERAPY OCCUPATIONAL THERAPY PROGRESS REPORT PLAN OF CARE UPDATE: Assessment: Marissa Marvin exhibits difficulty with STRENGTH and improvements in motion . She continues to be limited with weight bearing, gripping and pinching. She is progressing as expected towards her therapy goals as demonstrated by: documented subjective information on progress. She will benefit from continued skilled therapy requiring exercises and education in order to improve functional use of left hand. Functional gains: Improved range of motion Patient will report a good understanding of diagnosis and OT recommendations for progression of program.PROGRESSING 10/11 Patient will demonstrate independence with ongoing home recommendations/exercise program throughout therapy plan of care.PROGRESSING 10/11 Patient will independently demonstrate correct application of CUSTOM orthosis and verbalize understanding of proper wear/care. PROGRESSING 10/11 Patient will report a good understanding of edema control, scar / wound management throughout therapy plan of care to promote non-adherent / non-tender soft tissue PROGRESSING 10/11 Planned Interventions, Frequency, and Duration: 1x/week, 3 weeks Total Number of Visits Planned: 3 Planned Treatment Interventions: Custom orthosis fabrication;Prefabricated orthosis fitting;Therapeutic exercise (21185);Manual therapy (40343);Self-alf management (62198);Fluidotherapy (25850) PLAN FOR NEXT VISIT: fluido additional putty SUBJECTIVE: 6 weeks s/p CMC arthroplasty saw pleased with progress has used hand for some tasks with some difficulty Has not been using forearm based splint, and using hand based splint less and less Pain: Pain Pain Level: 1 PROMIS Scales Higher is Better 10/09/2016 10/02/2021 10/02/2021 Phys Func - Score - - 38 (moderate dysfunction) Phys Func - Percentile - - 12 % Social Roles - Score - - 39 (moderate dysfunction) Social Role - Percentile - - 14 % GH Physical - Score - - 54.1 (Very Good) GH Physical - Percentile 53 % 66 % 66 % GH Mental - Score - - 62.5 (Excellent) GH Mental - Percentile 96 % 89 % 89 % Self-Eff Symptom - Score - - 48 (Average) Self-Eff Symptom - Percentile - - 42 % T-scores: mean of general population = 50. 5 points is clinically meaningfully difference Percentiles provide an indication of how the patient's score ranks in relation to the general population. Higher percentile rankings indicate better function/quality of life. 50th percentile is the average of the general population and indicates half of respondents had a worse score. Lower is Better 10/02/2021 Fatigue - Score 39 (within normal limits) Fatigue - Percentile 86 % T-scores: mean of general population = 50. 5 points is clinically meaningfully difference Percentiles provide an indication of how the patient's score ranks in relation to the general population. Higher percentile rankings indicate better function/quality of life. 50th percentile is the average of the general population and indicates half of respondents had a worse score. OBJECTIVE MEASURES WITH LEVEL OF FUNCTION: Hand Strength: Residential Sales Executive Position 2;Pinch Meter Hand Strength L Residential Sales Executive Position 2 (lbs): 2 lbs L Lateral Pinch (lbs): 1 lbs L Tripod/ 3 Jaw James (lbs): 0.5 lbs L Tip Pinch (lbs): 1 lbs UE AROM L Wrist Extension: 45 Degrees L Wrist Flexion: 40 Degrees L Wrist Radial Deviation: 20 Degrees L Wrist Ulnar Deviation: 20 Degrees Hand AROM L Thumb MP Flexion : 40 Degrees L Thumb IP Flexion : 35 Degrees L Thumb Radial Abduction: 55 Degrees L Thumb Palmar Abduction: 50 Degrees TREATMENT: Therapeutic Exercise: 1: AROM hand wrist and thumb 2: tendon gliding and digit add/abd 3: thumb flex ext and opposition 4: with soft putty riveter hand, digit extension roll digit flexion digit extension intto flattened putty and tripod pinch 5: removed small suture pushing thrpought the surface causing the patient pain 6: objective measurements taken and recorded Skilled Intervention: Patient was educated in proper exercise technique and purpose for exercises. Billing Therapeutic Exercise Treatment Minutes: 39 [facility] NoteHNO ID: [id number] Author: Iliana Covarrubias OT/Bharti Service: ? Author Type: Occupational Therapist Type: Progress Notes Filed: 10/02/2021 1:53 PM Note Text: Episode Visit Count: 5 Therapist That Will Oversee The Plan Of Care: Sunil Barrientos Start of Care Date: 09/06/21 Onset Date: 08/24/21 Plan of Care Certification Date: 09/06/21 Next Certification Due Date: 12/05/21 REHABILITATION AND SPORTS THERAPY OCCUPATIONAL THERAPY TREATMENT NOTE ASSESSMENT: Marissa Boone Fredyhetal demonstrated difficulty with strength and irritation from absorbable sutures. The patient will continue to benefit from continued skilled occupational therapy for exercises education modalities and splinting PLAN FOR NEXT VISIT: putty exercises SUBJECTIVE: Pt reports she is doing well, some of the exercises are still difficult expresses concern over redness of surgical in cision Pain: Pain Pain Level: 4 OBJECTIVE MEASURES WITH LEVEL OF FUNCTION: TREATMENT: Therapeutic Exercise: 1: AROM hand wrist and thumb 2: tendon gliding and digit add/abd 3: thumb flex ext and opposition 4: with 1# weight wrist flex wrist ext dev and sup pro 5: instructed to use less splinting at home when sedentary 6: Dr Solorzano checked patients incision instructed pt in what to watch for Skilled Intervention: Patient was educated in proper exercise technique and purpose for exercises. Reviewed and educated patient on additions/changes for home exercise program . Billing Therapeutic Exercise Treatment Minutes: 38 [facility]12[facility]21 NoteHNO ID: [id number] Author: Iliana Covarrubias OT/Bharti Service: ? Author Type: Occupational Therapist Type: Progress Notes Filed: 09/27/2021 2:13 PM Note Text: Episode Visit Count: 4 Therapist That Will Oversee The Plan Of Care: Sunil Barrientos Start of Care Date: 09/06/21 Onset Date: 08/24/21 Plan of Care Certification Date: 09/06/21 Next Certification Due Date: 12/05/21 Patient Identified by Name and Date of : Yes REHABILITATION AND SPORTS THERAPY OCCUPATIONAL THERAPY TREATMENT NOTE ASSESSMENT: Marissa Boone Fredyhetal demonstrated difficulty with strength and functional endurance. The patient will continue to benefit from continued skilled occupational therapy for exercises modalities and splinting PLAN FOR NEXT VISIT: progress to weight s SUBJECTIVE: 5 weeks s/p CMC arthroplasty saw pleased with progress has used hand for some tasks with some difficulty Reports she has been able to wrap gifts and use her hand for most tasks Pain: Pain Pain Level: 4 OBJECTIVE MEASURES WITH LEVEL OF FUNCTION: Hand AROM L Thumb MP Flexion : 35 Degrees L Thumb IP Flexion : 35 Degrees L Thumb Radial Abduction: 45 Degrees L Thumb Palmar Abduction: 45 Degrees TREATMENT: Therapeutic Exercise: 1: AROM hand wrist and thumb 2: tendon gliding and digit add/abd 3: thumb flex ext and opposition 4: fabricated hand based spint instructed in wear schedule and precautions 5: soft sponge riveter hand manipulate and [employer] 6: medium sponge pieces picket [employer] set down Skilled Intervention: Patient was educated in proper exercise technique and purpose for exercises. Billing Therapeutic Exercise Treatment Minutes: 45 * L 3913 HFO w/out joints (short opponens, all CMC designs, C-bar, hand majano, hand gutter, hand trigger, anti-claw) Quantity: 1 Iliana Covarrubias [facility] [id number] NoteHNO ID: [id number] Author: Iliana Covarrubias OT/Bharti Service: ? Author Type: Occupational Therapist Type: Progress Notes Filed: 09/07/2021 10:33 AM Note Text: Episode Visit Count: 1 Therapist That Will Oversee The Plan Of Care: Sunil Barrientos Start of Care Date: 09/06/21 Onset Date: 08/24/21 Plan of Care Certification Date: 09/06/21 Next Certification Due Date: 12/05/21 Patient Identified by Name and Date of : Yes [facility] REHABILITATION AND SPORTS THERAPY OCCUPATIONAL THERAPY EVALUATION PLAN OF CARE: Assessment: Marissa Marvin presents with the diagnosis of s/p CMC arthroplasty. She presents with impairments of edema AROM AND SCAR. She may benefit from skilled occupational therapy services to improve motion and functional use of hand. Prognosis: Good Good due to: current objective clinical presentation Goals for Episode of Care created on 09/06/21 through 09/06/21 Patient will report a good understanding of diagnosis and OT recommendations for progression of program. Patient will demonstrate independence with ongoing home recommendations/exercise program throughout therapy plan of care. Patient will independently demonstrate correct application of CUSTOM orthosis and verbalize understanding of proper wear/care. Patient will report a good understanding of edema control, scar / wound management throughout therapy plan of care to promote non-adherent / non-tender soft tissue. Planned Interventions, Frequency, and Duration: Current Frequency: 1x/week Duration: 6 weeks Total Number of Visits Planned: 6 Planned Treatment Interventions: Custom orthosis fabrication;Prefabricated orthosis fitting;Therapeutic exercise (22296);Manual therapy (80167);Fluidotherapy (72434) PLAN FOR NEXT VISIT: assess and adjust splint progress scar and edema management Patient demonstrates good understanding of plan of care and treatment. The above goals and plan of care were discussed and agreed upon by patient/family. SUBJECTIVE: Marissa Marvin is a 66 year old female seen today for Relevant History Past Relevant Surgical Conditions: (R CMC arthroplasty) Right or Left Handed: Right Pain: Pain Pain Level: 5 Post Treatment Pain Post Treatment Pain Level: 1 Post Treatment Pain Location: Thumb - Left Post Treatment Pain Description: Aching PROMIS Scales Higher is Better 10/09/2016 GH Physical - Percentile 53 % GH Mental - Percentile 96 % T-scores: mean of general population = 50. 5 points is clinically meaningfully difference Percentiles provide an indication of how the patient's score ranks in relation to the general population. Higher percentile rankings indicate better function/quality of life. 50th percentile is the average of the general population and indicates half of respondents had a worse score. T-scores: mean of general population = 50. 5 points is clinically meaningfully difference Percentiles provide an indication of how the patient's score ranks in relation to the general population. Higher percentile rankings indicate better function/quality of life. 50th percentile is the average of the general population and indicates half of respondents had a worse score. OBJECTIVE MEASURES WITH LEVEL OF FUNCTION: Hand Skin / Wound: Scar;Sutures Wound Description: absorbable Scar: Tender;Mild adherance Edema Location: left hand Edema Description: Mild Edema Measurements: Wrist (DWC) (cm) R Wrist (DWC) (cm): 15 L Wrist (DWC) (cm): 16.5 Wrist AROM: Left Limitation Left Hand AROM: WFL (full but not tight) Thumb AROM: Left Limitation UE AROM L Wrist Extension: 30 Degrees L Wrist Flexion: 20 Degrees L Wrist Radial Deviation: 10 Degrees L Wrist Ulnar Deviation: 20 Degrees Left Hand AROM: WFL (full but not tight) Thumb AROM: Left Limitation Hand AROM L Thumb MP Flexion : 22 Degrees L Thumb IP Flexion : 25 Degrees L Thumb Radial Abduction: 35 Degrees L Thumb Palmar Abduction: 40 Degrees Education: Education Learning Preferences: Demonstration;Explanation;Performance Barriers: None Learning/educational needs: Procedure / Surgery;Home exercise program;Plan of Care Education Provided: Yes, see treatment interventions for education provided Education Provided To: Patient Education Mode/Type: Demonstration;Explanation/Discussion;Literature/Printed Materials Response to Education/Teach Back: States/Identifies;Return Demonstration TREATMENT: OT Treatment Interventions : Therapeutic Exercise;Self-Snf Management;Custom Orthosis/Splint Fabrication Evaluation Evaluation Therapeutic Exercise: 1: wrist flex wrist ext dev 2: gripping 3: thumb flex ext and opposition 4: fabricated forearm based thumb spica splint instructed in wear schedule and precautions Skilled Intervention: Patient was educated in proper exercise technique and purpose for exercises. Self-Snf Management: 1: educated in surger (more content not included)...[facility] [id number] NoteHNO ID: [id number] Author: Sanjay Eduardo MD Service: Anesthesiology Author Type: Anesthesiologist Type: Anesthesia Procedure Notes Filed: 09/27/2021 6:42 PM Note Text: ANESTHESIOLOGY PROCEDURE NOTE Peripheral Nerve Block General Information Procedure Start Time/Medication Administration: 08/24/2021 12:16 PM Procedure End time: 08/24/2021 12:21 PM Patient location during procedure: PACU Timeout Performed Pre-procedure: timeout performed Consent Obtained: Yes Patient identity confirmed: arm band and patient Reason for block: post-op pain management/at surgeon's request Staffing Anesthesiologist: Sanjay Eduardo MD Performed by: anesthesiologist Preparation Sterility Preparation: hand hygiene performed prior to procedure, surgical cap used, mask used, sterile drape used during line insertion, skin prep agent completely dried prior to procedure Sterility Technique Not Completely Performed Due to Extreme Emergency: Yes Site Prep: chlorhexidine Pre-Procedure Neuro Exam Location: LUE Sensory: intact Motor: intact Procedure Details Patient Position: sitting Monitoring: Pulse OX, EKG and NIBP Block Type Upper Extremity: axillary Multiple Levels: No Laterality: left Injection Technique: single-shot Ultrasound Guided: No Local Infiltration: Yes Needle Needle Type: echogenic Needle Gauge: 20 G Needle Length: 83 mm Needle Localization: ultrasound Assessment Injection assessment: negative aspiration, no paresthesia on injection, incremental injection and local visualized surrounding nerve on ultrasound Paresthesia: immediately resolved Post-Procedure Neuro Exam Expected Regional Anesthesia: Yes Medications Administered Ropivacaine (PF) 5 mg/mL (0.5 %) injection (NAROPIN), 10 mL Lidocaine HCl(PF) 20 mg/mL (2 %) injection, 5 mL SIGNATURE: Sanjay Eduardo MD PATIENT NAME: Marissa Marvin DATE: August 24, 2021 TIME: 1:22 PM CSN: [id number] + [facility] note Future Appointments [facility] Evaluation noteNo assessment information available [facility] Work Phone: Evaluation note* Diagnosis Encounter for gynecological examination (general) (routine) without abnormal findings Encounter for screening mammogram for breast cancer [facility] Diagnosis Encounter for gynecological examination (general) (routine) without abnormal findings Encounter for screening mammogram for breast cancer documented in this encounter [facility] note* Diagnosis Encounter for screening mammogram for malignant neoplasm of breast- Primary Other screening mammogram Dense breast Inconclusive mammogram Chest wall pain Painful respiration documented in this encounter [facility] note* Diagnosis Encounter for screening mammogram for malignant neoplasm of breast Other screening mammogram Dense breast Inconclusive mammogram documented in this encounter [facility] note* Diagnosis Abnormal mammogram- Primary Abnormal mammogram, unspecified [facility]* Diagnosis Abnormal mammogram Abnormal mammogram, unspecified documented in this encounter [facility] note* Diagnosis Pre-operative examination- Primary Preoperative examination, unspecified Primary osteoarthritis of first carpometacarpal joint of left hand Primary localized osteoarthrosis, hand Mixed hyperlipidemia Exercise-induced asthma Exercise induced bronchospasm Gastroesophageal reflux disease without esophagitis Esophageal reflux Hypothyroidism, unspecified type Pre-syncope Syncope and collapse Skin infection- Primary Unspecified local infection of skin and subcutaneous tissue documented in this encounter [facility] course Narrative No data available for this section [facility] Hospital Discharge instructions No data available for this section [facility] Progress note No data available for this section [facility] Reason for referral (narrative)* Diagnostic Procedure Only (Routine) - Closed Specialty Diagnoses / Procedures Referred By Deshawn kearney Referred To Contact [facility] Diagnoses Encounter for gynecological examination (general) (routine) without abnormal findings Encounter for screening mammogram for breast cancer Procedures CHET SCREENING SCREENING MAMMOGRAPHY BI 2-VIEW BREAST INC CAD Milton Lujan MD [address] [place] [address] [facility] [address] [place] [address] Referral ID Status Reason Start Date Expiration Date V isits Requested Visits Authorized [id number] Closed Auto-Generate d Referral 04/30/2022 05/30/2023 1 1 [facility] for referral (narrative)* Diagnostic Procedure Only (Routine) - Authorized Specialty Diagnoses / Procedures Referred By Deshawn kearney Referred To Contact [facility] Diagnoses Encounter for screening mammogram for malignant neoplasm of breast Dense breast Procedures CHET SCREENING W KHAI SCREENING DIGITAL BREAST TOMOSYNTHESIS BI SCREENING MAMMOGRAPHY BI 2-VIEW BREAST INC CAD Milton Lujan MD [address] [place] [address] [facility] [address] [place] [address] Referral ID Status Reason Start Date Expiration Date Visits Requested Visits Authorized [id number] Authorized Auto-Generat ed Referral 01/19/2024 02/17/2025 1 1 T [facility] for referral (narrative)* Diagnostic Procedure Only (Routine) - Authorized Specialty Diagnoses / Procedures Referred By Deshawn kearney Referred To Contact [facility] Diagnoses Abnormal mammogram Procedures US BREAST LTD LEFT US BREAST UNI REAL TIME WITH IMAGE LIMITED Milton Lujan MD [address] [place] [address] [facility] [address] [place] [phone] Referral ID Status Reason Start Date Expiration Date Visits Requested Visits Authorized [id number] Authorized Auto-Generat ed Referral 03/10/2024 04/09/2025 1 1 * Diagnostic Procedure Only (Routine) - Authorized Specialty Diagnoses / Procedures Referred By Deshawn keanrey Referred To Contact [facility] Diagnoses Abnormal mammogram Procedures CHET DIAGNOSTIC LEFT DIAGNOSTIC MAMMOGRAPHY COMPUTER-AIDED DETCJ UNI Milton Lujan MD [address] [place] [address] [facility] [address] [place] [phone] Referral ID Status Reason Start Date Expiration Date Visits Requested Visits Authorized [id number] Authorized Auto-Generat ed Referral 03/10/2024 04/09/2025 1 1 [facility] for referral (narrative)* Diagnostic Procedure Only (Routine) - Closed Specialty Diagnoses / Procedures Referred By Deshawn kearney Referred To Contact [facility] Diagnoses Abnormal mammogram Procedures US BREAST LTD LEFT US BREAST UNI REAL TIME WITH IMAGE LIMITED Milton Lujan MD [address] [place] [address] [facility] [address] [place] [phone] Referral ID Status Reason Start Date Expiration Date V isits Requested Visits Authorized [id number] Closed Auto-Generate d Referral 03/10/2024 04/09/2025 1 1 [facility] for referral (narrative)No reason for referral information availableWAult[facility] Work Phone: Re[facility] for visit Narrative* Diagnostic Procedure Only (Routine) - Closed Specialty Diagnoses / Procedures Referred By Deshawn [place] Referred To Contact [facility] Diagnoses Encounter for gynecological examination (general) (routine) without abnormal findings Encounter for screening mammogram for breast cancer Procedures CHET SCREENING SCREENING MAMMOGRAPHY BI 2-VIEW BREAST INC CAD Milton Lujan MD [address] [place] [address] [facility] [address] [place] [address] Referral ID Status Reason Start Date Expiration Date V isits Requested Visits Authorized [id number] Closed Auto-Generate d Referral 04/30/2022 05/30/2023 1 1 [facility] Diagnostic Procedure Only (Routine) - Closed Specialty Diagnoses / Procedures Referred By Contac t Referred To Contact [facility] Diagnoses Encounter for screening mammogram for malignant neoplasm of breast Dense breast Procedures CHET SCREENING W KHAI SCREENING DIGITAL BREAST TOMOSYNTHESIS BI SCREENING MAMMOGRAPHY BI 2-VIEW BREAST INC Milton Newton MD [address] [place] [address] [facility] [address] [place] [address] Referral ID Status Reason Start Date Expiration Date V isits Requested Visits Authorized [id number] Closed Auto-Generate d Referral 01/19/2024 02/17/2025 1 1 [facility] Summary Purpose Family History No Family History Records Found Relationship Condition Age at Onset Recorded Date/T herb mother Diabetes mellitus Unknown Cardiac disease Unknown brother Diabetes mellitus Unknown Coronary artery disease Unknown father Coronary artery disease Unknown aunt Coronary artery disease Unknown Relationship Condition Age at Onset Recorded Date/T herb mother Diabetes mellitus Unknown Cardiac disease Unknown Hypertension Unknown brother Diabetes mellitus Unknown Coronary artery disease Unknown father Coronary artery disease Unknown Malignant neoplasm Unknown aunt Coronary artery disease Unknown Advance Directives No Advanced Directives Records Found Advance Directive Response Recorded Date/ Time Living Will No April 30, 2021 7:29pm Power of Heat And Frost Insulator Helper No April 30 7:29pm Documents on File Type Date Recorded 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 Expl anation Advance Directive(s) 08/24/2021 9:15 AM Advance Directive(s) 08/08/2021 9:41 AM Advance Directive(s) 04/15/2018 8:21 AM Advance Directive(s) 09/06/2016 9:16 AM Advance Directive(s) 08/20/2016 9:14 AM Advance Directive Response Recorded Date/ Time Living Will No April 30, 2021 6:29pm Power of Heat And Frost Insulator Helper No April 30 6:29pm Chief Complaint and Reason for Visit Chief Complaint EORDER Chief Complaint EORDER E ORDER Chief Complaint E ORDER EORDER Chief Complaint OSTEO Chief Complaint Admit Date CHRONIC SINUSITIS October 08, 2024 5: 04pm HTN (SELF) December 07, 2024 2:26 pm SYNCOPE/NEAR SYNCOPE December 30, 2024 6: 54am Reason for Visit Admit Date Near syncope December 07, 2024 2:26 pm Hypertension December 07, 2024 2:26 pm Mixed hyperlipidemia December 07, 2024 2:2 6pm Chief Complaint Admit Date HTN (SELF) December 07, 2024 2:26 pm SYNCOPE/NEAR SYNCOPE December 30, 2024 6: 54am OSTEOPOROSIS February 22, 2025 3:02p m Additional Source Comments INFORMATION SOURCE (unrecogn ized section and content) DATE CREATED AUTHOR 10/26/2021 [facility] DATE CREATED AUTHOR AUTHOR'S ORGANIZ ATION 09/03/2023 [facility] ([place]) DATE CREATED AUTHOR AUTHOR'S ORGANIZ ATION 06/21/2024 [facility] DATE CREATED AUTHOR AUTHOR'S ORGANIZ ATION 03/12/2025 [facility] Goals (unrecognized section and content) Goals may be documented in a n alternate sectionGoals may be documented in an alternate sectionGoals may be documented in an alternate sectionGoals may be documented in an alternate sectionGoals may be documented in an alternate section No data available for this section No data available for this sectionGoals may be documented in an alternate sectionGoals may be documented in an alternate sectionGoals may be documented in an alternate sectionGoals may be documented in an alternate section Source Comments (unrecognize d section and content) In the event this informatio n is protected by the Federal Confidentiality of Alcohol and Drug Abuse Patient Records regulations: The Federal rules restrict any use of the information to criminally investigate or prosecute any alcohol or drug abuse patient.[facility] the event this information is protected by the Federal Confidentiality of Alcohol and Drug Abuse Patient Records regulations: The Federal rules restrict any use of the information to criminally investigate or prosecute any alcohol or drug abuse patient.[facility] the event this information is protected by the Federal Confidentiality of Alcohol and Drug Abuse Patient Records regulations: The Federal rules restrict any use of the information to criminally investigate or prosecute any alcohol or drug abuse patient.[facility] the event this information is protected by the Federal Confidentiality of Alcohol and Drug Abuse Patient Records regulations: The Federal rules restrict any use of the information to criminally investigate or prosecute any alcohol or drug abuse patient.[facility] the event this information is protected by the Federal Confidentiality of Alcohol and Drug Abuse Patient Records regulations: The Federal rules restrict any use of the information to criminally investigate or prosecute any alcohol or drug abuse patient.[facility] the event this information is protected by the Federal Confidentiality of Alcohol and Drug Abuse Patient Records regulations: The Federal rules restrict any use of the information to criminally investigate or prosecute any alcohol or drug abuse patient.[facility] the event this information is protected by the Federal Confidentiality of Alcohol and Drug Abuse Patient Records regulations: The Federal rules restrict any use of the information to criminally investigate or prosecute any alcohol or drug abuse patient.[facility] the event this information is protected by the Federal Confidentiality of Alcohol and Drug Abuse Patient Records regulations: The Federal rules restrict any use of the information to criminally investigate or prosecute any alcohol or drug abuse patient.[facility]In the event this information is protected by the Federal Confidentiality of Alcohol and Drug Abuse Patient Records regulations: The Federal rules restrict any use of the information to criminally investigate or prosecute any alcohol or drug abuse patient.[facility] Reason for Visit (unrecogniz ed section and content) Reason Comments Radiology Mammogram Reason Comments Breast Problem Reason Comments Radiology US Specialty Diagnoses / Procedures Referred By Deshawn t Referred To Contact [facility] Diagnoses Abnormal mammogram Procedures US BREAST LTD LEFT US BREAST UNI REAL TIME WITH IMAGE LIMITED Milton Lujan MD [address] [place] [address] [facility] [address] [place] [address] Referral ID Status Reason Start Date Expiration Date V isits Requested Visits Authorized [id number] Closed Auto-Generate d Referral 03/10/2024 04/09/2025 1 1 Reason Comments Derm Problem Redness, stinging, w armth x 1 day Care Teams (unrecognized sec tion and content) Technology Development Intern Relationship Specialty Start Date End Date Guero Khan MD [address] [place], [place] [id number] PCP - General Family Practice 01/17/21 Technology Development Intern Relationship Specialty Start Date End Date Guero Khan MD [address] [place], [place] [id number] PCP - General Family Practice 01/17/21 Team Status: Active Member Role Status Dates Dr. Manuel Khan MD Family Provider Active Dr. Manuel Khan MD Primary Care Provider Activ e Team Status: Inactive Member Role Status Dates Dr. Manuel Khan MD Primary Care Provider, Attending Provider, Referring Provider Active Team Status: Inactive Member Role Status Dates Dr. Manuel Khan MD Primary Care Provider, Atte nding Provider Active Technology Development Intern Relationship Specialty Start Date End Date Guero Khan MD [address] [place], [place] [address], [place] [id number] PCP - General Family Medicine 01/17/21 Team Status: Active Member Role Status Dates Dr. Guero Khan MD Family Provider Active Dr. Guero Khan MD Primary Care Provider Acti ve Team Status: Inactive Member Role Status Dates Dr. Guero Khan MD Primary Care Provider, Attending Provider, Referring Provider Active Technology Development Intern Relationship Specialty Start Date End Date Guero Khan MD [address] [place] [address] PCP - General Family Medicine 01/17/21 Technology Development Intern Relationship Specialty Start Date End Date Guero Khan MD [address] [place] [address] PCP - General Family Medicine 01/17/21 Technology Development Intern Relationship Specialty Start Date End Date Guero Khan MD [address] [place] [address] PCP - General Family Medicine 01/17/21 Technology Development Intern Relationship Specialty Start Date End Date Guero Khan MD [address] [place] [address] PCP - General Family Medicine 01/17/21 Technology Development Intern Relationship Specialty Start Date End Date Guero Khan MD [address] [facility] [address] [address] PCP - General Family Medicine 01/17/21 Team Status: Active Member Role Status Dates Dr. Guero Khan MD Primary Care Provider Acti ve Team Status: Inactive Member Role Status Dates Dr. Guero Khan MD Primary Care Provider Acti ve Start: October 08, 2024 End: October 08, 2024 Dr. Guero Gant MD Attending Provider Activ e Start: October 08, 2024 End: October 08, 2024 Dr. Guero Gant MD Referring Provider Activ e Start: October 08, 2024 End: October 08, 2024 Team Status: Inactive Member Role Status Dates Dr. Guero Khan MD Primary Care Provider Acti ve Start: December 07, 2024 End: December 07, 2024 Dr. Guero Khan MD Referring Provider Active Start: December 07, 2024 End: December 07, 2024 Dr. Marcie Barragan MD Attending Provider Active Start: December 07, 2024 End: December 07, 2024 Team Status: Inactive Member Role Status Dates Dr. Guero Khan MD Primary Care Provider Acti ve Start: December 30, 2024 End: December 30, 2024 Dr. Marcie Barragan MD Attending Provider Active Start: December 30, 2024 End: December 30, 2024 Dr. Marcie Barragan MD Referring Provider Active Start: December 30, 2024 End: December 30, 2024 Team Status: Active Member Role Status Dates Dr. Guero Khan MD Primary Care Provider Acti ve Start: December 30, 2024 Dr. Ricky Bustamante MD Attending Provider Active S tart: December 30, 2024 Team Status: Active Member Role Status Dates Dr. Guero Khan MD Primary Care Provider Acti ve Start: December 30, 2024 Dr. Guero Khan MD Attending Provider Active Start: December 30, 2024 Dr. Guero Khan MD Referring Provider Active Start: December 30, 2024 Team Status: Inactive Member Role Status Dates Dr. Guero Khan MD Primary Care Provider Acti ve Start: December 30, 2024 End: December 30, 2024 Dr. Guero Khan MD Attending Provider Active Start: December 30, 2024 End: December 30, 2024 Dr. Guero Khan MD Referring Provider Active Start: December 30, 2024 End: December 30, 2024 Team Status: Inactive Member Role Status Dates Dr. Guero Khan MD Primary Care Provider Acti ve Start: February 22, 2025 End: February 22, 2025 Dr. Guero Khan MD Attending Provider Active Start: February 22, 2025 End: February 22, 2025 Dr. Guero Khan MD Referring Provider Active Start: February 22, 2025 End: February 22, 2025 FOR RECORDS PERTAINING TO PATIENTS WHO ARE OR HAVE BEEN ENROLLED IN A CHEMICAL DEPENDENCY/SUBSTANCEABUSE PROGRAM, SOME INFORMATION MAY BE OMITTED. This clinical summary was aggregated from multiple sources. Caution should be exercised in using it in the provision of clinical care. This summary normalizes information from multiple sources, and as a consequence, information in this document may materially change the coding, format and clinical context of patient data. In addition, data may be omitted in some cases. CLINICAL DECISIONS SHOULD BE BASED ON THE PRIMARY CLINICAL RECORDS. [facility]. provides no warranty or guarantee of the accuracy or completeness of information in this document.
== END | disposition home or self-care (01) ==
LOC: OPBI 06:59
PROVIDERS: PCP Family Medicine; Referring Provider Obstetrics & Gynecology; Visit Provider Obstetrics & Gynecology
DX: Z12.31 Encounter for screening mammogram for malignant neoplasm of breast (principal)
CPT/HCPCS: 77063; 77067

== ENCOUNTER → 2025-04-18 | Outpatient (CLI) | payer MEDICARE, BC, SELFPAY ==
--- NOTE | 2025-04-18 12:50 | RAD_ITS ---
PROCEDURE: FOREARM 2 VIEWS 04/18/2025 REASON FOR EXAM: PAIN TECHNIQUE: FOREARM 2 VIEWS COMPARISON: None FINDINGS: Two views of the right forearm demonstrate diffuse osteopenia of the osseous structures. There are no fractures or dislocations. Joint spaces appear to be well preserved. There is soft tissue swelling along the posterior aspect of the mid forearm region. RAD/Forearm 2 Views IMPRESSION: There is soft tissue swelling along the posterior aspect of the mid forearm reg ion. If the patient continues to have symptoms follow-up imaging is recommended. Reading Location: [id number]
== END | disposition home or self-care (01) ==
LOC: MTRAD 12:48
PROVIDERS: PCP Family Medicine; Referring Provider Family Medicine; Visit Provider Family Medicine
DX: M79.601 Pain in right arm (principal)
CPT/HCPCS: 73090

== ENCOUNTER → 2025-06-09 | Outpatient (CLI) | payer MEDICARE, BC, SELFPAY ==
[2025-06-09 13:17] LABS: AST(SGOT) 37 U/L (<=31); Alanine Aminotransfer ALT/SGPT 30 U/L (<=34); Albumin, Serum 4.3 g/dL (3.4-4.8); Alkaline Phosphatase 60 U/L (35-104); Bilirubin, Direct 0.10 mg/dL (0.00-0.30); Cholesterol 206 mg/dL (<=200); Globulin 2.8 g/dL (2.2-4.2); Low Density Lipoprotein Calc. 80 mg/dL; Triglycerides 113 mg/dL; Very Low Density Lipoprotein 23 mg/dL (5-40); cholesterol:hdl ratio screen 2.00
== END | disposition home or self-care (01) ==
LOC: LAB 11:26
PROVIDERS: Nurse Practitioner Family; PCP Family Medicine; Referring Provider Internal Medicine Cardiovascular Disease; Visit Provider Internal Medicine Cardiovascular Disease
DX: I10 Essential (primary) hypertension (principal); E78.2 Mixed hyperlipidemia
CPT/HCPCS: 36415; 80061; 80076